=== PATIENT | female | born 1955 | race Caucasian/White ===

== ENCOUNTER 2017-11-05 21:05 | Inpatient (IN) ==
--- NOTE | 2017-11-05 21:43 | Emergency Department Report ---
Head Injury HPI - General Chief complaint: Fall Stated complaint: Fell yesterday, unable to form sentences Time Seen by Provider: 11/05/17 21:28 Source: patient, other (friends) Mode of arrival: ambulatory Limitations: no limitations - History of Present Illness HPI Narrative: Yesterday the patient fell, apparently standing on a flat cement pad, but she may have been standing on one or 2 steps. Unwitnessed fall, and patient has no memory of the fall, all she can state was that she was outside and she fell. Since that time the patient apparently has had a fairly profound cognitive deficit, is unable to speak clearly, she seems to have some type of expressive aphasia, as well as severe confusion.'s a baseline cognitive deficit/MR, but is independently functioning, and lives by herself. Patient has friends that take her to faith every Friday, and they state that on Friday she was her normal self. She also has a brother and some of the relative to live in an adjacent house behind her ears, but she is essentially living on her own and independent functioning. Currently patient has no complaints. In review of the patient's previous visits, and it appears that in 2014 the patient had at least 2 similar episodes of encephalopathy associated with hypertension. Patient was admitted for the first, and treated symptomatically and dismissed for the second. No signs of significant stroke or pathology of the brain were found on the initial visit, and after the patient's blood pressure normalized, her encephalopathic symptoms seemed to improve. After a brief phone call with the patient's daughter who is some type of nurse in [place], fairly the patient has had similar encephalopathic changes with anemia. - Related Data Home Medications Medication Instructions Recorded Confirmed Atorvastatin Calcium 20 mg PO HS #30 10/18/13 11/05/17 Cholecalciferol (Vitamin D3) 400 unit PO DAILY #0 tab 10/18/13 11/05/17 [Vitamin D-400] Omeprazole 20 mg PO ACB #0 tab 11/08/14 11/05/17 Aspirin [Aspirin EC] 81 mg PO DAILY 02/19/17 11/05/17 Atenolol [Tenormin] 50 mg PO DAILY 10/08/17 11/05/17 Calcium Carbonate 600 mg PO DAILY 10/08/17 11/05/17 Flecainide [Tambocor] 100 mg PO BID 10/08/17 11/05/17 Levothyroxine Tab [Synthroid] 25 mcg PO ACB 10/08/17 11/05/17 Lisinopril [Zestril] 10 mg PO DAILY 10/08/17 11/05/17 Multivitamin [One Daily] 1 each PO DAILY 10/08/17 11/05/17 Previous Rx's Medication Instructions Recorded Hydrocodone/APAP 5/325 [[place] 1 tab PO Q6H PRN #12 tab 10/08/17 5/325] Allergies/Adverse reactions: Allergies Allergy/AdvReac Type Severity Reaction Status Date / Time No Known Drug Allergies Allergy Unknown Verified 10/08/17 20:17 Review of Systems All systems: reviewed and negative except as stated PFSH Patient Stated Medical History Cardiac Arrhythmia Yes: afib Hypertension Yes Gastroesophageal Reflux Yes Disease Hypertension associated with encephalopathy - Social History Smoking status: Never smoker Substance use type: does not use Alcohol intake frequency: does not drink Physical Exam - Limitations Limitations: no limitations - General General appearance: alert, other (patient is alert, however confused, and has significant difficulty following commands patient is a very poor historian) - Normal Exams: Head:: Normocephalic without trauma Eyes:: Pupils are PERRLA w/ EOMI, No scleral icterus, irritation, or foreign bodies noted ENMT:: No facial trauma, nasal exudates, pharyngeal erythema, or exudates are noted Neck:: Full range of motion, without adenopathy, JVD, bruits or thyromegaly Chest/Respirations:: Clear all butcher, with good airflow, and symmetry bilaterally Cardiovascular:: Regular rate and rhythm, without murmur or gallop, Pulses 2+ all extremities, capillary refill, <2 seconds all extremities Abdomen:: Bowel sounds positive, soft, non-tender, non-distended, no hepatosplenomegaly, masses or bruits noted Lymphatic:: No lymphadenopathy, or lymphedema noted Musculoskeletal:: No tenderness, or deformity noted, good range of motion, all extremities Integumentary:: No rashes, hives, or bruising noted, hair and nails, without abnormality Psychiatric:: Patient exhibits, appropriate attention, emotion and affect - Neurological Exam Neurological exam: Present: alert, oriented X3, CN II-XII intact, normal gait, reflexes normal, other (patient has significant difficulty following commands, complex commands completely befuddled the patient. She is alert and oriented to person place and situation as well as time, but has significant memory loss and memory deficit. Short-term memory is very poor. Patient has difficulty remembering names, and seems to have a mild expressive aphasia. No focal neurologic findings are found, patient appears to have significant general neurologic deficit/encephalopathy.). Absent: motor sensory deficit Course Vital Signs Pulse Rate 88 11/05/17 21:20 Respiratory Rate 20 11/05/17 21:20 Blood Pressure 201/87 H 11/05/17 21:20 Pulse Oximetry 93 11/05/17 21:20 Pulse Rate 88 11/05/17 21:20 Respiratory Rate 20 11/05/17 21:20 Blood Pressure 201/87 H 11/05/17 21:20 Pulse Oximetry 93 11/05/17 21:20 Head Injury - [facility] Narrative Medical decision making narrative: After initial evaluation, patient developed significant cough that she states is been on and off for a number of weeks. On reexamination patient had mild wheezes, so said with a cough. She is given dexamethasone 8 mg IV, and albuterol metered-dose inhaler with spacer and instruction 8 puffs - patient unable to cooperate with MDI instructions. Given albuterol neb 1 - to relief of all coughing CT head - mild white matter atrophy only EKG - normal sinus rhythm without ischemic, ectopy, or infarction. Patient does have significant artifact however. CBC - normal UA - normal CMP - normal Troponin - normal Mag - normal Patient has had no improvement after ER observation. Patient is discussed with Dr. Hurst, we will admit to CCU, inpatient for acute encephalopathy. - Lab Data Result diagrams: 11/05/17 22:08 11/05/17 22:08 Disposition Clinical Impression: Acute encephalopathy Disposition: 01 Discharged Home, Self-Care Condition: Stable Prescriptions: No Action Cholecalciferol (Vitamin D3) [Vitamin D-400] 400 unit PO DAILY #0 tab Aspirin [Aspirin EC] 81 mg PO DAILY Multivitamin [One Daily] 1 each PO DAILY Lisinopril [Zestril] 10 mg PO DAILY Levothyroxine Tab [Synthroid] 25 mcg PO ACB Calcium Carbonate 600 mg PO DAILY Atenolol [Tenormin] 50 mg PO DAILY Hydrocodone/APAP 5/325 [[place] 5/325] 1 tab PO Q6H PRN #12 tab PRN Reason: Pain Atorvastatin Calcium 20 mg PO HS #30 Omeprazole 20 mg PO ACB #0 tab Flecainide [Tambocor] 100 mg PO BID Referrals: Tori Ricci MD [Primary Care Provider] - - Seen By: physician
[2017-11-05] MEDS: METOPROLOL 5mg/5ml INJECTION IVP SCH ×2 (22:12→23:05)
[2017-11-05] MEDS: SALINE FLUSH 10ml SYRINGE IVF PRN ×2 (22:14→23:07)
[2017-11-05] MEDS ORDERED: DEXAMETHASONE 4 MG/ML INJECTION IVP ONE (22:18)
[2017-11-05] MEDS ORDERED: INHALER ASSIST DEVICE (Optichamber) MC ONE (22:19)
[2017-11-05] MEDS ORDERED: ALBUTEROL 2.5mg/3ml (0.083%) NEB AEROSOL ONE (22:37)
[2017-11-06] MEDS ORDERED: LABETALOL 20mg/4ml INJECTION IVP PRN (01:08)
[2017-11-06] MEDS ORDERED: ACETAMINOPHEN 325 MG TABLET PO PRN (01:08)
[2017-11-06] MEDS: CLOPIDOGREL 75 MG TABLET PO SCH ×2 (01:23→11:30)
--- NOTE | 2017-11-06 01:25 | History & Physical Report ---
History of Present Illness Date: 11/06/17 Chief complaint: difficulty speaking HPI: This is a 62 y/o female who lives in an independent setting. She has a baseline cognitive deficit but is highly functioning. The patient was found by family member yesterday. Apparently fell for unknown reason, The patient was having problems with expressing herself and it would seem to have worsened since yesterday. Further the family would report that the patient's short term memory is poor. Again all of this is different for the patient. In the ED a CT head demonstrates old findings. No acute process. Labs are reassuring The patient has no focal motor deficits. Clearly has expressive aphasia. The patient will be admitted for further evaluation. This is very similar to an event in 2015 where she was thought to have had a TIA. Note that she is currently on a statin and aspirin therapy. Note further that she denies any problem with strength or sensory. Gait is somewhat a problem but there is chronicity to that. She is further describing a chronic cough. Review of Systems Review of systems: Somewhat limited due to patients cognitive deficit and difficultly in expressing herself. She reports no headache or vision changes, no neck pain no chest pain cough chronic and non productive, no fever, chills or sweats. no abdomen pain, no nausea/vomiting 12 point ROS is limited otherwise and no obvious other conerns other than stated above. Past Medical History Medical History Updates: mild cognitive deficits, TIA, possible atrial fibrillation Surgical History: PPM, c section, left ORIF ankle, right eye cataracts Family History: cardiac disease on fathers side Family History: As Above - Social History Smoking status: Never smoker Substance use type: does not use Alcohol intake frequency: does not drink Housing: assisted living facility Household members: none Current occupational status: retired Current residence: Assisted Living Medications Home Medications Medication Instructions Recorded Confirmed Type Atorvastatin Calcium 20 mg PO HS #30 10/18/13 11/05/17 History Cholecalciferol (Vitamin D3) 400 unit PO DAILY #0 tab 10/18/13 11/05/17 History [Vitamin D-400] Omeprazole 20 mg PO ACB #0 tab 11/08/14 11/05/17 History Aspirin [Aspirin EC] 81 mg PO DAILY 02/19/17 11/05/17 History Atenolol [Tenormin] 50 mg PO DAILY 10/08/17 11/05/17 History Calcium Carbonate 600 mg PO DAILY 10/08/17 11/05/17 History Flecainide [Tambocor] 100 mg PO BID 10/08/17 11/05/17 History Hydrocodone/APAP 5/325 [[place] 1 tab PO Q6H PRN #12 tab 10/08/17 11/05/17 Rx 5/325] Levothyroxine Tab [Synthroid] 25 mcg PO ACB 10/08/17 11/05/17 History Lisinopril [Zestril] 10 mg PO DAILY 10/08/17 11/05/17 History Multivitamin [One Daily] 1 each PO DAILY 10/08/17 11/05/17 History Allergies Allergy/AdvReac Type Severity Reaction Status Date / Time No Known Drug Allergies Allergy Unknown Verified 10/08/17 20:17 Exam Vital Signs: Pulse Rate 90 11/05/17 23:10 Respiratory Rate 24 11/05/17 23:10 Blood Pressure 190/99 H 11/05/17 23:10 Pulse Oximetry 91 11/05/17 23:10 Telemetry Rhythm: Sinus Rhythm - Constitutional Present: mild distress, well nourished, well developed, average body habitus, cooperative - Routine HEENT Exam Head: Present: normocephalic, atraumatic Eye: Present: EOMI, PERRL, conjunctivae pink. Absent: nystagmus ENT: Present: mucous membranes moist - Routine Neck Exam Present: supple, full ROM - Routine Respiratory Exam Present: CTA bilaterally - Routine Cardiovascular Exam Present: RRR, no murmur - Routine Abdominal Exam Present: soft, normoactive bowel sounds, non distended, non tender - Routine Extremities Exam Present: no edema, non tender, full ROM - Routine Back/Spine/Pelvis Exam Back/Spine: Present: full ROM - Routine Skin Exam Present: intact - Routine Neurological Exam Present: alert, oriented X3, CN II-XII intact, moving all extremities, normal tone, vision grossly intact, hearing grossly intact. Absent: sensory deficit, motor deficit, normal speech patient has clear evidence of expressive aphasia. - Routine Psychiatric Exam Present: normal affect, normal thought process Results - Labs CBC & Chem 7: 11/05/17 22:08 11/05/17 22:08 Labs: reviewed and essentially unremarkable CT head with chronic changes EKG sinus Assessment and Plan (1) Acute encephalopathy Current visit: Yes Status: Acute (2) Expressive aphasia Current visit: Yes Status: Acute (3) HTN (hypertension) Current visit: Yes Status: Acute (4) Cough Current visit: Yes Status: Acute (5) Arrhythmia Current visit: Yes Status: Acute Assessment and Plan: 1. expressive aphasia acute POA: clearly evident on my exam tonight. must be concerned regarding CVA. Will admit with this as the primary concern. CCU admit with routine neuro orders. MR of brain in the am. Echo and carotid Doppler in the am. Interrogate pacemaker in am. continue aspirin, statin, add plavix, polina not load. neurology consult placed. Seems similar to what occurred in 2015. 2. metabolic encephalopathy acute POA: mostly related to cognitive deficit chronic and underlying. expressive aphasia. metabolic workup neg. TSH pending. Neurology cx placed 3. HtN chronic POA. need permissive tonight. has a cough. hold CK inhibitor. 4. chronic cough POA: consider CK mediated., hold 5. arrhythmia chronic POA: sinus currently, on flecainide. monitor on tele. interrogate pacemaker. if atrial fib? would need to strongly consider anticoagulation. CHADS VASC score of 2 at least female, HTN 6. DVT ppx; SCD, lovenox 7. gastric ppx PPI DVT Prophylaxis: SCD's, Lovenox GI Prophylaxis: Protonix Resuscitation Status: Full Code - Time spent with patient Time with patient PN: 50 minutes - Physician Narrative Physician: Kelle Bond MD Narrative: Date: 11/06/17 Time: 0122 Hospital Course Summary Disclaimer: The visit summary below is not to be considered part of the above Progress Note.
[2017-11-06 01:33] VITALS: BMI 29.3
[2017-11-06] MEDS ORDERED: HYDROCODONE/APAP 5mg/325mg TABLET PO PRN (01:39)
[2017-11-06] MEDS ORDERED: ALBUTEROL 2.5mg/3ml (0.083%) NEB AEROSOL PRN (01:39)
[2017-11-06] MEDS ORDERED: FALL RISK - PHARMACY CONSULT MC ONE (01:48)
[2017-11-06] MEDS: MAGNESIUM SULFATE 1gm PREMIX 1 GM/100 ML BAG IV SCH ×4 (04:18→14:23)
[2017-11-06] MEDS ORDERED: AMIODARONE 150 MG in NS 100 ML IV ONE (04:51)
[2017-11-06] MEDS ORDERED: AMIODARONE 450 MG in NS 250ml 250 ML IV SCH (05:30)
[2017-11-06] MEDS: LEVOTHYROXINE 25 MCG TABLET PO SCH (06:06)
[2017-11-06] MEDS ORDERED: SALINE FLUSH 10ml SYRINGE ONE ×2 (06:47→14:48)
--- NOTE | 2017-11-06 07:33 | CT Scan Report ---
Indication: fall with head injury, now poor communication PROCEDURE: CT head/brain wo con: Encounter: Initial Comparison: December 04, 2014 Technique: Axial CT images through the head were performed without contrast. Iterative Reconstruction dose reducing technique was utilized. FINDINGS: The ventricles are dilated, but unchanged. There is no evidence of acute intracranial hemorrhage, midline displacement, or mass effect. There are numerous areas of low attenuation in the white matter which most likely represent changes of chronic microvascular ischemia. The CT attenuation of the brain parenchyma is otherwise normal within the cerebellum, brain stem, and cerebral hemispheres. The tympanic cavities and mastoid air cells are free of appreciable disease. There are no definite fractures of the skull base, calvarium, or visualized portion of the midface. IMPRESSION: No CT evidence of acute traumatic intracranial injury. Stable head CT. There is a preliminary report by [facility]. .
[2017-11-06] MEDS ORDERED: FLECAINIDE 100 MG TABLET PO SCH (09:00)
[2017-11-06] MEDS ORDERED: ENOXAPARIN 40 MG/0.4 ML INJECTION SQ SCH (09:00)
[2017-11-06] MEDS ORDERED: LISINOPRIL 10 MG TABLET PO SCH (09:00)
[2017-11-06] MEDS ORDERED: MORPHINE SULFATE 4mg INJECTION IVP PRN (09:07)
--- NOTE | 2017-11-06 09:09 | Ultrasound Report ---
Indication: expressive aphasia PROCEDURE: US carotid doppler BI: TECHNIQUE: Grayscale, color and duplex Doppler imaging was performed of the carotid systems bilaterally. Velocities in cm/sec - validated velocity measurements with angiographic measurements, velocity criteria are extrapolated from diameter data as defined by the Society of Radiologists in Ultrasound Consensus Conference Radiology 2003; 229;340-346. RIGHT: PSV ICA 73 EDV ICA 14 PSV CCA 97.5 EDV CCA 19 SVR 0.7 PSV ECA 84 ICA Diameter reduction <20% (0.8-1.0)% LEFT: PSV ICA 65 EDV ICA 19 PSV CCA 63 EDV CCA 13 SVR 1.0 PSV ECA 106 ICA Diameter reduction <20% (0.8-1.0)% The right vertebral artery is patent with cephalic flow. The left vertebral artery is patent with cephalic flow. No significant atherosclerotic plaque. IMPRESSION: No hemodynamically significant carotid stenosis. .
[2017-11-06] MEDS: PANTOPRAZOLE 40 MG INJECTION IVP SCH (10:05)
--- NOTE | 2017-11-06 10:49 | Cardiology Consult Note ---
<Dee Valladares - Last Filed: 11/07/17 15:06> History of Present Illness Consult date: 11/06/17 Requesting physician: Kelle Bond Chief complaint: aphasia History of present illness: Kisha is a 62 year old female who is known to Dr. Rowe's practice with a history of PAF, [employer] PPM, HTN, HLD, who had an unwitnessed fall, and patient has no memory of the fall, all she can state was that she was outside and she fell. Since that time the patient apparently has had a fairly profound cognitive deficit, is unable to speak clearly, she seems to have some type of expressive aphasia, as well as severe confusion. She lives in an independent setting. She has a baseline cognitive deficit but is highly functioning. Her family report that the patient's short term memory is poor. In the ED a CT head demonstrates old findings. No acute process. Mag was quite low (1.0), The patient has no focal motor deficits. Clearly has expressive aphasia. She was admitted for further evaluation. She is currently on a statin and aspirin therapy. Early this morning she had some ventricular arrhythmia, with a torsades appearance and Dr. Rowe is consulted and we appreciate the consult. Review of Systems ROS unobtainable: due to mental status (expressive aphasia) - Constitutional Constitutional: Present: headache(s) - Cardiovascular Cardiovascular: Absent: chest pain - Respiratory Respiratory: Absent: dyspnea - Gastrointestinal Gastrointestinal: Present: nausea, vomiting PFSH Patient Stated Medical History Cardiac Arrhythmia Yes: afib Hypertension Yes Hyperlipidemia Yes Gastroesophageal Reflux Yes Disease Arthritis Yes Medical History Updates: mild cognitive deficits, TIA, possible atrial fibrillation Surgical History: [employer] PPM, c section, left ORIF ankle, right eye cataracts Family History: Family history is positive for grandparents having coronary artery disease and the patient's daughter has pernicious anemia. - Social History Smoking status: Never smoker Substance use type: does not use Alcohol intake frequency: does not drink Housing: apartment Household members: none Current occupational status: retired Current residence: Assisted Living Medications Home Medications Medication Instructions Recorded Confirmed Type Atorvastatin Calcium 20 mg PO HS #30 10/18/13 11/05/17 History Cholecalciferol (Vitamin D3) 400 unit PO DAILY #0 tab 10/18/13 11/05/17 History [Vitamin D-400] Omeprazole 20 mg PO ACB #0 tab 11/08/14 11/05/17 History Calcium Carbonate 600 mg PO DAILY 10/08/17 11/05/17 History Hydrocodone/APAP 5/325 [[place] 1 tab PO Q6H PRN #12 tab 10/08/17 11/05/17 Rx 5/325] Levothyroxine Tab [Synthroid] 25 mcg PO ACB 10/08/17 11/05/17 History Multivitamin [One Daily] 1 each PO DAILY 10/08/17 11/05/17 History Apixaban [Eliquis] 5 mg PO BID #60 tab 11/12/17 Rx Aspirin [Adult Aspirin] 81 mg PO DAILY #30 tablet. 11/12/17 Rx Furosemide [Lasix 40 mg Tab] 40 mg PO DAILY #30 tab 11/12/17 Rx Magnesium Oxide [Magox] 800 mg PO BID #120 tab 11/12/17 Rx Metoprolol Succinate (XL) [Toprol 75 mg PO DAILY #45 tab 11/12/17 Rx Xl] Nitroglycerin [Nitrostat] 0.4 mg SL Q5M PRN #25 tab 11/12/17 Rx Potassium Chloride [K-DUR 10 mEq 10 meq PO WB #30 tab 11/12/17 Rx Tablet] Allergies Allergy/AdvReac Type Severity Reaction Status Date / Time No Known Drug Allergies Allergy Unknown Verified 10/08/17 20:17 Exam Vital signs: Temperature 97.9 F 11/06/17 01:16 Pulse Rate 108 H 11/06/17 06:00 Respiratory Rate 37 H 11/06/17 06:00 Blood Pressure 145/109 H 11/06/17 06:00 Pulse Oximetry 95 11/06/17 06:00 - Constitutional no acute distress, well nourished, cooperative - Routine HEENT Exam Head: Present: normocephalic ENT: Present: mucous membranes dry - Routine Neck Exam Absent: JVD, carotid bruit - Routine Chest/Breast/Axilla Exam Chest wall: Absent: tenderness - Routine Respiratory Exam Present: CTA bilaterally. Absent: dyspnea, diminished air movement (bases) - Routine Cardiovascular Exam Present: no murmur, irregularly irregular - Routine Abdominal Exam Present: soft, non tender - Routine Extremities Exam Present: no edema, pulses intact - Routine Skin Exam Present: intact, dry, warm - Routine Neurological Exam Present: alert - Routine Psychiatric Exam Present: cooperative Results 11/07/17 04:50 11/07/17 04:50 Cardiac Enzymes 11/06/17 Range/Units 04:43 Troponin I 0.028 D (0-0.12) ng/ml Intake and Output 11/05/17 11/06/17 11/06/17 22:59 06:59 14:59 Intake Total 327.442 / 327.442 33.3 / 33.3 Output Total 550 / 550 100 / 100 Balance -222.558 / -222.558 -66.7 / -66.7 Intake: IV 327.442 / 327.442 33.3 / 33.3 Amiodarone 150 mg In Ns 100 ml 103 / 103 @ 618 mls/hr IV O ONE Rx#: [id number] Amiodarone 450 mg In NS 250ml 24.442 / 24.442 33.3 / 33.3 250 ml @ 1 MG/MIN 33.33 mls/hr IV .[id number] [facility] Rx#:[id number] MAGNESIUM SULFATE 1gm PREMIX 1 200 / 200 gm In 100 ml @ 100 mls/hr IV Q1H [facility] Rx#:[id number] Output: Urine 100 / 100 Urine Amount (Catheter) 550 / 550 Other: Urine Appearance Clear Clear Urine Color Pale Yellow Yellow # Voids 1 Weight 135 lb 9.349 oz - Imaging and Cardiology Imaging & Cardiology Narrative: Date of Exam: 11/06/17 Ordering Provider: Rogers Hurst MD Type of Exam(s): US carotid doppler BI Reason for Exam(s): expressive aphasia Indication: expressive aphasia PROCEDURE: US carotid doppler BI: TECHNIQUE: Grayscale, color and duplex Doppler imaging was performed of the carotid systems bilaterally. Velocities in cm/sec - validated velocity measurements with angiographic measurements, velocity criteria are extrapolated from diameter data as defined by the Society of Radiologists in Ultrasound Consensus Conference Radiology 2003; 229;340-346. RIGHT: PSV ICA 73 EDV ICA 14 PSV CCA 97.5 EDV CCA 19 SVR 0.7 PSV ECA 84 ICA Diameter reduction <20% (0.8-1.0)% LEFT: PSV ICA 65 EDV ICA 19 PSV CCA 63 EDV CCA 13 SVR 1.0 PSV ECA 106 ICA Diameter reduction <20% (0.8-1.0)% The right vertebral artery is patent with cephalic flow. The left vertebral artery is patent with cephalic flow. No significant atherosclerotic plaque. IMPRESSION: No hemodynamically significant carotid stenosis. 11/06/17 10:41 Assessment and Plan - Assessment and Plan (1) HTN (hypertension) Status: Chronic Continue Atenolol and Lisinopril (2) Ventricular tachyarrhythmia Status: Acute Mag 1.5, replace with 2gm per IV - Plan LHC tomorrow due to ventricular arrhythmia. - Continue to monitor telemetry (3) Presence of cardiac pacemaker Problem details: Wurl Status: Chronic interrogate please (4) Paroxysmal atrial fibrillation Status: Chronic Previously on Flecainide 100mg BID and Aspirin 325mg daily - Takes Atenolol 25mg daily for rate control. - Amiodarone 200mg daily for AAT (5) Mixed hyperlipidemia Status: Chronic Takes Atorvastatin 20mg daily - Assessment and Plan Ventricular tachyarrhythmia Current visit: Yes Status: Acute - Mag 1.5, replace with 2gm per IV - Plan LHC tomorrow due to ventricular arrhythmia. - NPO except meds after MN - Continue to monitor telemetry Presence of cardiac pacemaker Problem details: [employer] Current visit: Yes Status: Chronic - interrogate please Paroxysmal atrial fibrillation Current visit: Yes Status: Chronic - Previously on Flecainide 100mg BID and Aspirin 325mg daily - Takes Atenolol 25mg daily for rate control. - Amiodarone 200mg daily for AAT Mixed hyperlipidemia Current visit: Yes Status: Chronic - Takes Atorvastatin 20mg daily HTN (hypertension) Current visit: Yes Status: Chronic - Continue Atenolol and Lisinopril Thank you for allowing us to participate in the care of this patient. Hospital Course Summary Disclaimer: The visit summary below is not to be considered part of the above Progress Note. <Andrez Rowe - Last Filed: 11/19/17 12:45> [facility] Patient Stated Medical History Cardiac Arrhythmia Yes: afib Hypertension Yes Gastroesophageal Reflux Yes Disease Exam Vital signs: Temperature 97.5 F 11/12/17 12:25 Pulse Rate 83 11/12/17 12:25 Respiratory Rate 14 11/12/17 12:25 Blood Pressure 102/52 11/12/17 12:25 Pulse Oximetry 98 11/12/17 12:25 Results 11/11/17 05:25 11/12/17 04:28 Assessment and Plan - Attestation Attestation Narrative: 11/19/17 12:45 Recommendation After examining the patient I agree with the above assessment. I am involved in the formulation of the patient's plan of care. - Assessment and Plan (1) HTN (hypertension) Status: Chronic (2) Ventricular tachyarrhythmia Status: Acute (3) Presence of cardiac pacemaker Problem details: Wurl Status: Chronic (4) Paroxysmal atrial fibrillation Status: Chronic (5) Mixed hyperlipidemia Status: Chronic (6) Cardiomyopathy Problem details: Non ischemic Status: Acute Hospital Course Summary Disclaimer: The visit summary below is not to be considered part of the above Progress Note.
[2017-11-06] MEDS ORDERED: METOCLOPRAMIDE 10mg/2ml INJECTION IVP PRN (10:55)
[2017-11-06] MEDS ORDERED: ONDANSETRON 4 MG/2 ML INJECTION IVP ONE (10:57)
[2017-11-06] MEDS ORDERED: HEPARIN - PHARMACY CONSULT MC ONE (11:08)
[2017-11-06] MEDS ORDERED: AMIODARONE 900 MG in NS 500ml 500 ML IV SCH (11:30)
[2017-11-06] MEDS: ATENOLOL 50 MG TABLET PO SCH (11:30)
[2017-11-06] MEDS: ASPIRIN *EC* 81 MG TABLET PO SCH (11:31)
--- NOTE | 2017-11-06 11:44 | Pharmacy Consult ---
Pharmacy Consult-Heparin - Laboratory Information Heparin Plt Count 366 T/MM3 (130-400) 11/05/17 22:08 APTT 29.3 SEC (24-36) 11/05/17 22:08 - Consult Information HEPARIN CONSULT (Initial): Dx: PAF Baseline PTT = 29 Sec. Baseline platelet count = 366 T/mm3. PTT Target Range = 50-75 Enoxaparin 40mg sq given today at 1000. Delay heparin bolus and drip by 3 hours. Will give Heparin Bolus of 3,700units, start Heparin Drip at 720 units/hr (18ml/ hr). Heparin 20,000 units in D5W 500ml. We will continue to monitor and make adjustments accordingly. Thank you.
--- NOTE | 2017-11-06 11:46 | History & Physical Report ---
- History and Physical History and Physical: Dr. Hurst's note reviewed. Mrs. Betancourt interviewed and examined. Patient's daughter provided supplemental history CC: Difficulty speaking HPI: Mrs. Betancourt is 62-year-old female admitted early this morning by Dr. Hurst after family members found her yesterday with difficulty speaking. She apparently had sustained a fall from standing earlier in the day with subsequent development of difficulty with her speech. The fall was unwitnessed and the patient cannot provide any information other than reporting that she fell and developed difficulty speaking after work. Head CT in the emergency room was negative for acute pathology and she was subsequently admitted to the ICU. There is no evidence of motor or sensory deficit on assessment in the emergency room or overnight and expressive aphasia was evident. The patient additionally has known history of paroxysmal atrial fibrillation previously controlled on flecainide. She had initial blood pressure of 201/87 on presentation in the emergency room with heart rate of 88 although heart rate subsequently accelerated with development of atrial fibrillation and wide complex tachycardia with evidence of torsade. Magnesium was low at 1.0. Patient received a supplemental dose of flecainide overnight in addition to labetalol for hypertension. Dr. Rowe service was contacted and it was elected to discontinue flecainide and initiate amiodarone due to persistent tachycardia. Pacemaker interrogation was obtained demonstrating atrial fibrillation with out VT. PH/SH/FH: agree with that recorded above by Dr. Hurst with additions of history of hypertensive emergency with encephalopathy 2014, chronic hypertension, history of CHF, and hyperlipidemia. Patient's primary care physician is Dr. Ricci and her daughter Margie Chairez is her DPOA. Patient is a full code. Family history is positive for grandparents having coronary artery disease and the patient's daughter has pernicious anemia. ROS: 10 point review unobtainable/irregular as per Dr. Hurst. EXAM: General-comfortable appearing female rubbing her head with obvious expressive aphasia-perseverates at times, can answer yes no questions but cannot answer a complex question; appears to follow simple commands without difficulty. HEENT-PERRL, EOMI without nystagmus, conjunctiva clear, sclera anicteric, conjugate gaze, facial structures symmetric, oropharynx clear, neck supple and without adenopathy Lungs-respirations nonlabored, good airflow, faint crackles at the bases Cardiac-irregularly irregular, S1-S2 Abd-soft, nontender, without palpable mass, bowel sounds present Ext-without edema Skin-without evidence of wounds or rashes Neuro-cranial nerves 3-12 intact except very minor decreased motion left nasolabial fold with grimace/smile-no asymmetry at rest; no drift upper extremities, starch crab/biceps symmetric-4+/5, plantar flexion 4/5 bilaterally, raises each leg off the head and hold against gentle resistance symmetrically; sensation intact to light touch and reports my hands are cold. Psych-frustrated but cooperative DATA: CBC unremarkable, chemistries notable for creatinine 0.8, magnesium 1.0, liver enzymes normal, LDL 56.4, f-2.34, troponin TSH < 0.012-0.[address] head reviewed by myself-unremarkable A/P: Expressive aphasia/acute ischemic stroke Paroxysmal atrial fibrillation with RVR Hypomagnesemia Hyperthyroidism Possible ventricular arrhythmias Hypertension Metabolic encephalopathy Hyperlipidemia Patient admitted to ICU with combined acute stroke, arrhythmias, hyperthyroidism , and hypomagnesemia. Will require CT imaging of the head with contrast/CTA when arrhythmias stabilize and permit. Continue aspirin at present. Speech therapy evaluation in conjunction with PT/ OT. Discontinue levofloxacin, may require endocrine evaluation. Will need initiation of beta ritu. Avoid hypotension or excessive lowering of blood pressure due to acute stroke. Echocardiogram pending, carotid Dopplers obtained-negative for occlusive disease. Cardiology consultation for assistance with arrhythmias. Continue magnesium replacement, repeat electrolytes pending at this time of this dictation. Patient is critically ill-time in 1050, Timeout 1146. Discussed with patient's daughter/DPOA. Discussed with nursing, discussed with cardiology.
[2017-11-06] MEDS ORDERED: HEPARIN 1,000unit/ml INJECTION 10ml IV ONE (13:00)
[2017-11-06] MEDS: HEPARIN DRIP 20,000 UNIT/500 ML BAG IV SCH (13:44)
[2017-11-06] MEDS: AMIODARONE 200 MG TABLET PO SCH (14:18)
[2017-11-06] MEDS: CALCIUM CARBONATE 600 MG TABLET PO SCH (14:26)
[2017-11-06] MEDS ORDERED: IOHEXOL 350mg/ml 75ml INJECTION ONE (14:48)
--- NOTE | 2017-11-06 14:54 | Echocardiogram ---
DATE OF PROCEDURE November 06, 2017 REFERRING PHYSICIAN Kelle Bond MD This is a two-dimensional this is a 2-D echo with color flow and Doppler. It was obtained in a patient with aphasia and torsades. Left atrial dimension is normal. Left ventricular end-diastolic dimension is normal. Left ventricular wall thickness is increased. Global hypokinesia is present with ejection fraction of about 30-35%. Right atrium is normal. Right ventricle is normal. Aortic root dimension is normal. Mitral valve is morphologically normal with mild mitral regurgitation. Aortic valve is a trileaflet structure with no stenosis or insufficiency. Tricuspid valve shows mild tricuspid regurgitation with moderate pulmonary hypertension with estimated pulmonary artery systolic pressure of 50. Pulmonary valve shows trace of pulmonary insufficiency. There is no pericardial effusion. Device wires are seen in the right heart. Inferior vena cava appears to be dilated and poorly responsive to respirations. IMPRESSION 1. Global hypokinesia with ejection fraction of about 30-35%. 2. Concentric left ventricular hypertrophy. 3. Device wires are seen in right heart. 4. Dilated inferior vena cava suggestive of elevated central venous pressure. 5. Mild mitral regurgitation. 6. Mild tricuspid regurgitation with moderate pulmonary hypertension with estimated pulmonary artery systolic pressure of 50. 6. Trace of pulmonary insufficiency. MTDD
--- NOTE | 2017-11-06 15:32 | CT Scan Report ---
Indication: expressive aphasia/CVA PROCEDURE: CT angio head: Encounter: Initial Comparison: Carotid Doppler from today and CT head from yesterday Technique: CT Head: Axial images were obtained through the head without and with intravenous contrast. CTA: Angiographic phase axial images were acquired through the entire head following intravenous contrast administration. Multiplanar 2-D reconstructions and maximum intensity projection images were produced for additional assessment. 3-D volume rendered images of the [place] were also produced by the technologist. Automated Exposure Control and Iterative Reconstruction dose reducing techniques were utilized. Contrast: Omnipaque 350 74mL Findings: CT head without and with contrast: The ventricles are dilated, but unchanged. Extensive periventricular low-attenuation white matter changes consistent with chronic microvascular ischemia. No hemorrhage, mass effect, mass lesions, or edema is evident. No areas of abnormal enhancement are seen. The visualized portions of the skull base, sinuses, and calvarium demonstrate no abnormality. CTA head with intravenous contrast: The distal cervical, petrous, cavernous, and supraclinoid segments of the internal carotid arteries are widely patent without significant stenosis or other vascular abnormalities. The anterior, middle, and posterior cerebral arteries are also widely patent without significant stenosis or occlusion. No aneurysms, vascular malformations, flow-limiting stenoses, or other arterial abnormality are evident. The visualized portion of the dural sinuses and cortical veins are also well seen and show no definite stenosis or occlusion. Impression: 1. CT head: No acute intracranial abnormality or hemorrhage. 2. CTA head: No aneurysms, vascular malformations, or flow limiting stenoses. .
--- NOTE | 2017-11-06 17:01 | XRay Report ---
Indication: PPM PROCEDURE: XR chest 1V: Encounter: Initial Comparison: February 19, 2017 Findings: Right dual-lead cardiac pacemaker noted with right atrial and right ventricular leads. No visible pneumothorax. Lungs are stable in appearance without focal consolidation. Heart size and mediastinal contours are stable. Impression: No pneumothorax. .
[2017-11-06] MEDS: ATORVASTATIN 20 MG TABLET PO SCH (20:02)
[2017-11-07] MEDS: PANTOPRAZOLE 40 MG INJECTION IVP SCH (08:28)
[2017-11-07] MEDS: SALINE FLUSH 10ml SYRINGE IVF PRN ×2 (08:28→16:33)
[2017-11-07] MEDS: CALCIUM CARBONATE 600 MG TABLET PO SCH (08:28)
[2017-11-07] MEDS: AMIODARONE 200 MG TABLET PO SCH (08:28)
[2017-11-07] MEDS: ASPIRIN *EC* 81 MG TABLET PO SCH (08:29)
[2017-11-07] MEDS: LEVOTHYROXINE 25 MCG TABLET PO SCH (08:29)
[2017-11-07] MEDS: ATENOLOL 50 MG TABLET PO SCH (08:29)
[2017-11-07] MEDS: CLOPIDOGREL 75 MG TABLET PO SCH (08:29)
[2017-11-07] MEDS: LIDOCAINE 1% 2ml INJ 10 MG, POTASSIUM CHLORIDE INJ 10 MEQ in NS 100 ML IV SCH ×4 (10:10→15:41)
--- NOTE | 2017-11-07 10:17 | Pharmacy Consult ---
Pharmacy Consult-Heparin - Laboratory Information Heparin Plt Count 361 T/MM3 (130-400) 11/07/17 04:50 APTT 54.0 SEC (24-36) H 11/07/17 08:44 - Consult Information PTT in target range. Will continue heparin drip at 18 mls/hr (720 units/hr) Thank you.
[2017-11-07] MEDS ORDERED: Verapamil 5 MG/2 ML VIAL ONE (14:04)
[2017-11-07] MEDS ORDERED: MIDAZOLAM 2mg/2ml INJECTION ONE (14:04)
[2017-11-07] MEDS ORDERED: NITROGLYCERIN 50MG INJECTION IV ONE (14:04)
[2017-11-07] MEDS ORDERED: FentaNYL 100 MCG/2 ML INJECTION ONE (14:04)
[2017-11-07] MEDS ORDERED: HEPARIN 1,000 UNITS/500 ML PREMIX (*CVL ONLY*) IV ONE (14:05)
[2017-11-07] MEDS ORDERED: HEPARIN 1,000unit/ml INJECTION 10ml ONE (14:05)
[2017-11-07] MEDS ORDERED: IOHEXOL 350mg/ml 200ml BOTTLE ONE (14:29)
--- NOTE | 2017-11-07 15:08 | Cardiology Progress Note ---
<Dee Valladares M - Last Filed: 11/10/17 15:00> Subjective Principal diagnosis: VTACH Interval history: Kisha is seen in follow up for NSVT. She is undergoing LHC with possible PCI. She denies chest pain. Exam Vital signs: Temperature 98.3 F 11/06/17 19:00 Pulse Rate 63 11/07/17 11:54 Respiratory Rate 60 H 11/07/17 11:00 Blood Pressure 154/76 H 11/07/17 11:00 Pulse Oximetry 96 11/07/17 11:00 Inpatient Medications: Generic Name Dose Route Start Last Admin Trade Name Freq PRN Reason Stop Dose Admin Acetaminophen 650 mg 11/06/17 01:08 11/06/17 01:23 Tylenol PO 650 mg Q6H PRN Administration Fever Hydrocodone Bitart/Acetaminophen 1 tab 11/06/17 01:39 11/06/17 03:27 [place] 5/325 PO 1 tab Q4H PRN Administration Pain Albuterol Sulfate 2.5 mg 11/06/17 01:39 Proventil Neb (0.083%) AEROSOL RTQID PRN Amiodarone HCl 200 mg 11/06/17 13:00 11/07/17 08:28 Pacerone PO 200 mg DAILY HERMELINDO Administration Aspirin 81 mg 11/06/17 09:00 11/07/17 08:29 Ecotrin PO 81 mg DAILY HERMELINDO Administration Atenolol 50 mg 11/06/17 09:00 11/07/17 08:29 Tenormin PO 50 mg DAILY HERMELINDO Administration Atorvastatin Calcium 20 mg 11/06/17 21:00 11/06/17 20:02 Lipitor PO 20 mg HS HERMELINDO Administration Calcium Carbonate 600 mg 11/06/17 09:00 11/07/17 08:28 Caltrate PO 600 mg DAILY HERMELINDO Administration Clopidogrel Bisulfate 75 mg 11/06/17 01:30 11/07/17 08:29 Plavix PO 75 mg DAILY HERMELINDO Administration Heparin Sodium (Porcine) 20,000 unit in 500 mls @ 18 mls/hr 11/06/17 13:00 05:00 Heparin Drip IV 18 mls/hr .Q24H HERMELINOD 18 mls/hr Protocol Titration Labetalol HCl 20 mg 11/06/17 01:08 11/06/17 04:18 Trandate IVP 20 mg Q10M PRN Administration Hypertension Metoclopramide HCl 5 mg 11/06/17 10:55 Reglan IVP Q6H PRN Morphine Sulfate 2 - 4 mg 11/06/17 09:07 11/06/17 13:19 Morphine Sulfate Inj IVP 2 mg Q1H PRN Administration Pain Pantoprazole Sodium 40 mg 11/06/17 09:00 11/07/17 08:28 Protonix Iv IVP 40 mg DAILY HERMELINDO Administration Sodium Chloride 10 - 80 ml 11/05/17 21:39 11/07/17 08:28 Iv Flush IVF 20 ml PRN PRN Administration Flushing Discontinued Medications Generic Name Dose Route Start Last Admin Trade Name Freq PRN Reason Stop Dose Admin Albuterol Sulfate 8 puff 11/05/17 22:18 11/05/17 22:22 Ventolin Hfa ORAL INH 11/05/17 22:19 2 puff O ONE Administration Albuterol Sulfate 2.5 mg 11/05/17 22:37 11/05/17 22:40 Proventil Neb (0.083%) AEROSOL 11/05/17 22:38 2.5 mg O ONE Administration Device 1 each 11/05/17 22:19 11/05/17 22:22 Optichamber 11/05/17 22:20 1 each O ONE Administration Dexamethasone 8 mg 11/05/17 22:18 11/05/17 22:25 Decadron IVP 11/05/17 22:19 8 mg O ONE Administration Enoxaparin Sodium 40 mg 11/06/17 09:00 11/06/17 10:05 Lovenox SQ 40 mg DAILY HERMELINDO Administration Flecainide Acetate 100 mg 11/06/17 09:00 11/06/17 03:37 Tambocor PO 100 mg BID HERMELINDO Administration Heparin Sodium (Beef Lung) 3,700 unit 11/06/17 13:00 11/06/17 13:26 Heparin Bolus 60 unit/kg (3700 unit) 11/06/17 13:01 3,700 unit IV Administration O ONE Heparin Sodium (Porcine) 1 each 11/06/17 11:08 Pharmacy Consult - Heparin 11/06/17 11:09 ONE TIME ONE Magnesium Sulfate/Dextrose 1 gm in 100 mls @ 100 mls/hr 11/06/17 04:00 07/05/ 18 06:22 Mag Sulf 1gm Premix IV 11/06/17 05:59 Infused Q1H HERMELINDO Infusion Amiodarone HCl 450 mg/ Sodium 250 mls @ 33.33 mls/hr 11/06/17 05:30 11/06/17 13:00 Chloride IV 11/06/17 11:30 Infused .Q7H31M HERMELINDO Infusion 1 MG/MIN Amiodarone HCl 150 mg/ Sodium 103 mls @ 618 mls/hr 11/06/17 04:51 11/06/17 05 :16 Chloride IV 11/06/17 05:00 Infused O ONE Infusion Amiodarone HCl 900 mg/ Sodium 500 mls @ 16.66 mls/hr 11/06/17 11:30 11/06/17 14:22 Chloride IV Infused .Q24H HERMELINDO Infusion 0.5 MG/MIN Magnesium Sulfate/Dextrose 1 gm in 100 mls @ 100 mls/hr 11/06/17 11:00 14:23 Mag Sulf 1gm Premix IV 11/06/17 12:59 100 mls/hr Q1H HERMELINDO Administration Lidocaine HCl 10 mg/ Potassium 100 mls @ 100 mls/hr 11/07/17 09:15 11/07/17 13:18 Chloride 10 meq/ Sodium IV 11/07/17 13:28 100 mls/hr Chloride .Q1H HERMELINDO Administration Levothyroxine Sodium 25 mcg 11/06/17 06:30 11/07/17 08:29 Synthroid PO 25 mcg ACB HERMELINDO Administration Lisinopril 10 mg 11/06/17 09:00 Prinivil PO DAILY HERMELINDO Metoprolol Tartrate 5 mg 11/05/17 22:00 11/05/17 23:05 Lopressor IVP 5 mg Q2MIN HERMELINDO Administration Ondansetron HCl 4 mg 11/06/17 10:57 11/06/17 11:38 Zofran IVP 11/06/17 10:58 4 mg O ONE Administration Pharmacy Consult 1 each 11/06/17 01:48 Pharmacy Consult - Fall Risk 11/06/17 01:49 ONE TIME ONE - Constitutional no acute distress, well nourished, cooperative - Routine HEENT Exam Head: Present: normocephalic ENT: Present: mucous membranes dry - Routine Chest/Breast/Axilla Exam Chest wall: Absent: tenderness - Routine Respiratory Exam Present: CTA bilaterally. Absent: dyspnea, rales, wheezes - Routine Cardiovascular Exam Present: no murmur, irregularly irregular - Routine Abdominal Exam Present: soft, non tender - Routine Extremities Exam Present: no edema - Routine Skin Exam Present: intact, dry, warm - Routine Neurological Exam Present: alert, oriented X3 - Routine Psychiatric Exam Present: normal affect Results 11/09/17 04:28 11/10/17 11:12 Cardiac Enzymes 11/06/17 Range/Units 17:08 Troponin I 0.025 (0-0.12) ng/ml Coagulation 11/06/17 11/07/17 Range/Units 21:42 08:44 APTT 67.0 H 54.0 H (24-36) SEC CBC 11/07/17 Range/Units 04:50 WBC 8.2 (4.5-11.0) T/MM3 RBC 4.04 (4.00-5.20) M/MM3 Hgb 12.1 (12-16) GM/DL Hct 37.0 (36-46) % Plt Count 361 (130-400) T/MM3 Neut # (Auto) 5.4 (1.8-7.7) T/MM3 Lymph # (Auto) 1.8 (1-4.8) T/MM3 [place] # (Auto) 0.9 H (0-0.8) T/MM3 Eos # (Auto) 0.0 (0-0.5) T/MM3 Baso # (Auto) 0.0 (0-0.2) T/MM3 Comprehensive Metabolic Panel 11/07/17 Range/Units 04:50 Sodium 143 (136-146) MEQ/L Potassium 3.3 L (3.6-5) MEQ/L Chloride 109 H (98-107) MEQ/L Carbon Dioxide 27 (22-30) MEQ/L BUN 12.0 (7-17) MG/DL Creatinine 0.8 D (0.7-1.2) mg/dL Glucose 99 (65-110) MG/DL Calcium 8.8 (8.4-10.2) MG/DL Intake and Output 11/07/17 11/07/17 11/07/17 06:59 14:59 22:59 Intake Total 126 / 126 200 / 200 Output Total 50 / 50 Balance 76 / 76 200 / 200 Intake: IV 126 / 126 200 / 200 Heparin Drip 20,000 unit In 500 126 / 126 ml @ 18 mls/hr IV .Q24H [facility] Rx #:[id number] LIDOCAINE 1% 2ml INJ 10 mg 200 / 200 Potassium Chloride Inj 10 meq In Ns 100 ml @ 100 mls/hr IV . Q1H HERMELINDO Rx#:[id number] Output: Urine 50 / 50 Other: Urine Appearance Clear Clear Urine Color Yellow Yellow Stool Color Brown Stool Consistency Dry and Hard Formed Size of Bowel Movement Small # Voids 1 1 # Bowel Movements 1 Weight 133 lb 13.129 oz Patient Weight 11/08/17 06:59 Weight 133 lb 13.129 oz - Imaging and Cardiology Imaging & Cardiology Narrative: Date of Exam: 11/06/17 Type of Exam(s): US echo doppler complete DATE OF PROCEDURE November 06, 2017 REFERRING PHYSICIAN Kelle Bond MD This is a two-dimensional this is a 2-D echo with color flow and Doppler. It was obtained in a patient with aphasia and torsades. Left atrial dimension is normal. Left ventricular end-diastolic dimension is normal. Left ventricular wall thickness is increased. Global hypokinesia is present with ejection fraction of about 30-35%. Right atrium is normal. Right ventricle is normal. Aortic root dimension is normal. Mitral valve is morphologically normal with mild mitral regurgitation. Aortic valve is a trileaflet structure with no stenosis or insufficiency. Tricuspid valve shows mild tricuspid regurgitation with moderate pulmonary hypertension with estimated pulmonary artery systolic pressure of 50. Pulmonary valve shows trace of pulmonary insufficiency. There is no pericardial effusion. Device wires are seen in the right heart. Inferior vena cava appears to be dilated and poorly responsive to respirations. IMPRESSION 1. Global hypokinesia with ejection fraction of about 30-35%. 2. Concentric left ventricular hypertrophy. 3. Device wires are seen in right heart. 4. Dilated inferior vena cava suggestive of elevated central venous pressure. 5. Mild mitral regurgitation. 6. Mild tricuspid regurgitation with moderate pulmonary hypertension with estimated pulmonary artery systolic pressure of 50. 6. Trace of pulmonary insufficiency. 11/07/17 15:08 Assessment and Plan - Assessment and Plan (1) HTN (hypertension) Status: Chronic (2) Ventricular tachyarrhythmia Status: Acute (3) Presence of cardiac pacemaker Problem details: iStorez Status: Chronic (4) Paroxysmal atrial fibrillation Status: Chronic (5) Mixed hyperlipidemia Status: Chronic (6) Cardiomyopathy Problem details: Non ischemic Status: Acute Non ischemic , Acute - EF 30-35% - LifeVest - Coreg and Entresto as BP tolerates - Assessment and Plan 11/06/17 Ventricular tachyarrhythmia Current visit: Yes Status: Acute - Mag 1.5, replace with 2gm per IV - Plan C tomorrow due to ventricular arrhythmia. - NPO except meds after MN - Continue to monitor telemetry Presence of cardiac pacemaker Problem details: iStorez Current visit: Yes Status: Chronic - interrogate please Paroxysmal atrial fibrillation Current visit: Yes Status: Chronic - Previously on Flecainide 100mg BID and Aspirin 325mg daily - Takes Atenolol 25mg daily for rate control. - Amiodarone 200mg daily for AAT Mixed hyperlipidemia Current visit: Yes Status: Chronic - Takes Atorvastatin 20mg daily HTN (hypertension) Current visit: Yes Status: Chronic - Continue Atenolol and Lisinopril Thank you for allowing us to participate in the care of this patient. 11/07/17 Non ischemic , Acute - EF 30-35% - LifeVest - Coreg and Entresto as BP tolerates Change Atenolol to Coreg due to reduced EF of 30-35% - DC Lisinopril. Entresto 24/26mg 36 hours after last dose of Lisinopril - Lasix 40mg BID with KCL 20meq BID - Monitor renal and electrolytes Hospital Course Summary Disclaimer: The visit summary below is not to be considered part of the above Progress Note. <Andrez Rowe - Last Filed: 11/19/17 12:52> Exam Vital signs: Temperature 97.5 F 11/12/17 12:25 Pulse Rate 83 11/12/17 12:25 Respiratory Rate 14 11/12/17 12:25 Blood Pressure 102/52 11/12/17 12:25 Pulse Oximetry 98 11/12/17 12:25 Inpatient Medications: Discontinued Medications Generic Name Dose Route Start Last Admin Trade Name Freq PRN Reason Stop Dose Admin Acetaminophen 650 mg 11/06/17 01:08 11/06/17 01:23 Tylenol PO 650 mg Q6H PRN Administration Fever Acetaminophen 325 - 650 mg 11/07/17 15:40 11/12/17 12:48 Tylenol PO 650 mg Q5H PRN Administration Pain Hydrocodone Bitart/Acetaminophen 1 tab 11/06/17 01:39 11/06/17 03:27 [place] 5/325 PO 1 tab Q4H PRN Administration Pain Hydrocodone Bitart/Acetaminophen 1 - 2 tab 11/07/17 15:40 [place] 5/325 PO Q5H PRN Pain Hydrocodone Bitart/Acetaminophen 1 tab 11/07/17 19:35 [place] 5/325 PO Q6H PRN Pain Al Hydroxide/Mg Hydroxide 30 ml 11/07/17 15:40 Maalox Plus PO Q3H PRN Indigestion Albuterol Sulfate 8 puff 11/05/17 22:18 11/05/17 22:22 Ventolin Hfa ORAL INH 11/05/17 22:19 2 puff O ONE Administration Albuterol Sulfate 2.5 mg 11/05/17 22:37 11/05/17 22:40 Proventil Neb (0.083%) AEROSOL 11/05/17 22:38 2.5 mg O ONE Administration Albuterol Sulfate 2.5 mg 11/06/17 01:39 Proventil Neb (0.083%) AEROSOL RTQID PRN Amiodarone HCl 200 mg 11/06/17 13:00 11/10/17 09:51 Pacerone PO 200 mg DAILY HERMELINDO Administration Apixaban 5 mg 11/09/17 09:00 11/12/17 08:39 Eliquis PO 5 mg BID HERMELINDO Administration Aspirin 81 mg 11/06/17 09:00 11/10/17 09:52 Ecotrin PO 81 mg DAILY HERMELINDO Administration Atenolol 50 mg 11/06/17 09:00 11/07/17 08:29 Tenormin PO 50 mg DAILY HERMELINDO Administration Atorvastatin Calcium 20 mg 11/06/17 21:00 11/11/17 20:10 Lipitor PO 20 mg HS HERMELINDO Administration Atropine Sulfate 0.5 mg 11/07/17 15:40 Atropine IVP Q5M PRN Bradycardia Bisacodyl 5 - 10 mg 11/07/17 15:40 Dulcolax PO DAILY PRN Constipation Bisacodyl 10 mg 11/07/17 15:40 Dulcolax RECTALLY DAILY PRN Constipation Calcium Carbonate 600 mg 11/06/17 09:00 11/12/17 08:39 Caltrate PO 600 mg DAILY HERMELINDO Administration Carvedilol 3.125 mg 11/07/17 17:30 11/09/17 09:32 Coreg PO Not Given BIDWM HERMELINDO Clopidogrel Bisulfate 75 mg 11/06/17 01:30 11/08/17 08:52 Plavix PO 75 mg DAILY HERMELINDO Administration Cyclobenzaprine HCl 5 mg 11/09/17 14:37 11/09/17 21:57 Flexeril PO 5 mg TID PRN Administration Muscle spasm Device 1 each 11/05/17 22:19 11/05/17 22:22 Optichamber 11/05/17 22:20 1 each O ONE Administration Dexamethasone 8 mg 11/05/17 22:18 11/05/17 22:25 Decadron IVP 11/05/17 22:19 8 mg O ONE Administration Enoxaparin Sodium 40 mg 11/06/17 09:00 11/06/17 10:05 Lovenox SQ 40 mg DAILY HERMELINDO Administration Enoxaparin Sodium 40 mg 11/08/17 09:00 11/08/17 08:59 Lovenox SQ 40 mg DAILY HERMELINDO Administration Flecainide Acetate 100 mg 11/06/17 09:00 11/06/17 03:37 Tambocor PO 100 mg BID HERMELINDO Administration Furosemide 40 mg 11/07/17 16:00 11/10/17 05:40 Lasix 40 Mg/4 Ml IVP 40 mg Q12H HERMELINDO Administration Furosemide 40 mg 11/10/17 17:00 11/11/17 09:22 Lasix 40 Mg Tab PO 40 mg 0900,1700 HERMELINDO Administration Furosemide 40 mg 11/12/17 09:00 11/12/17 08:49 Lasix 40 Mg Tab PO 40 mg DAILY HERMELINDO Administration Heparin Sodium (Beef Lung) 3,700 unit 11/06/17 13:00 11/06/17 13:26 Heparin Bolus 60 unit/kg (3700 unit) 11/06/17 13:01 3,700 unit IV Administration O ONE Heparin Sodium (Porcine) 1 each 11/06/17 11:08 Pharmacy Consult - Heparin 11/06/17 11:09 ONE TIME ONE Magnesium Sulfate/Dextrose 1 gm in 100 mls @ 100 mls/hr 11/06/17 04:00 06:22 Mag Sulf 1gm Premix IV 11/06/17 05:59 Infused Q1H [facility] Infusion Amiodarone HCl 450 mg/ Sodium 250 mls @ 33.33 mls/hr 11/06/17 05:30 11/06/17 13:00 Chloride IV 11/06/17 11:30 Infused .Q7H31M HERMELINDO Infusion 1 MG/MIN Amiodarone HCl 150 mg/ Sodium 103 mls @ 618 mls/hr 11/06/17 04:51 11/06/17 05 :16 Chloride IV 11/06/17 05:00 Infused O ONE Infusion Amiodarone HCl 900 mg/ Sodium 500 mls @ 16.66 mls/hr 11/06/17 11:30 11/06/17 14:22 Chloride IV Infused .Q24H HERMELINDO Infusion 0.5 MG/MIN Magnesium Sulfate/Dextrose 1 gm in 100 mls @ 100 mls/hr 11/06/17 11:00 14:23 Mag Sulf 1gm Premix IV 11/06/17 12:59 100 mls/hr Q1H HERMELINDO Administration Heparin Sodium (Porcine) 20,000 unit in 500 mls @ 18 mls/hr 11/06/17 13:00 15:42 Heparin Drip IV Infused .Q24H HERMELINDO Titration Protocol Lidocaine HCl 10 mg/ Potassium 100 mls @ 100 mls/hr 11/07/17 09:15 11/07/17 16:42 Chloride 10 meq/ Sodium IV 11/07/17 13:28 Infused Chloride .Q1H HERMELINDO Infusion Magnesium Sulfate/Dextrose 1 gm in 100 mls @ 100 mls/hr 11/08/17 06:15 09:05 Mag Sulf 1gm Premix IV 11/08/17 08:14 Infused Q1H HERMELINDO Infusion Sodium Chloride 1,000 mls @ 125 mls/hr 11/08/17 21:45 11/10/17 19:48 Normal Saline IV Infused .Q8H HERMELINDO Infusion Amiodarone HCl 150 mg/ Sodium 103 mls @ 618 mls/hr 11/09/17 09:28 11/09/17 10 :26 Chloride IV 11/09/17 09:37 Infused O ONE Infusion Magnesium Sulfate/Dextrose 1 gm in 100 mls @ 100 mls/hr 11/10/17 13:40 15:08 Mag Sulf 1gm Premix IV 11/10/17 14:39 Infused O ONE Infusion Magnesium Sulfate/Dextrose 1 gm in 100 mls @ 100 mls/hr 11/10/17 14:45 19:38 Mag Sulf 1gm Premix IV 11/10/17 16:44 Infused Q1H HERMELINDO Infusion Magnesium Sulfate/Dextrose 1 gm in 100 mls @ 100 mls/hr 11/10/17 16:30 16:59 Mag Sulf 1gm Premix IV 11/10/17 18:29 Not Given Q1H HERMELINDO Ibuprofen 200 mg 11/09/17 10:33 11/09/17 11:14 Motrin PO 11/09/17 10:34 200 mg O ONE Administration Labetalol HCl 20 mg 11/06/17 01:08 11/06/17 04:18 Trandate IVP 20 mg Q10M PRN Administration Hypertension Levothyroxine Sodium 25 mcg 11/06/17 06:30 11/07/17 08:29 Synthroid PO 25 mcg ACB HERMELINDO Administration Lisinopril 10 mg 11/06/17 09:00 Prinivil PO DAILY HERMELINDO Lorazepam 0.5 - 1 mg 11/07/17 15:40 Ativan PO Q4H PRN Anxiety Lorazepam 0.5 - 1 mg 11/07/17 15:40 Ativan Inj IVP Q4H PRN Anxiety Magnesium Hydroxide 30 ml 11/07/17 15:40 Mom PO DAILY PRN Constipation Magnesium Oxide 400 mg 11/08/17 21:00 11/10/17 09:52 Magox PO 400 mg BID HERMELINDO Administration Magnesium Oxide 800 mg 11/10/17 21:00 11/12/17 08:39 Magox PO 800 mg BID HERMELINDO Administration Metoclopramide HCl 5 mg 11/06/17 10:55 Reglan IVP Q6H PRN Metoclopramide HCl 5 - 10 mg 11/07/17 15:40 Reglan IVP Q6H PRN Nausea &/or vomiting Metoprolol Succinate 25 mg 11/09/17 17:00 11/11/17 09:22 Toprol Xl PO 11/11/17 09:00 25 mg DAILY HERMELINDO Administration Metoprolol Succinate 50 mg 11/11/17 09:00 11/11/17 09:21 Toprol Xl PO 50 mg DAILY HERMELINDO Administration Metoprolol Succinate 25 mg 11/10/17 15:00 11/10/17 15:19 Toprol Xl PO 11/10/17 15:01 25 mg O ONE Administration Metoprolol Succinate 75 mg 11/11/17 09:30 11/12/17 08:49 Toprol Xl PO 75 mg DAILY HERMELINDO Administration Metoprolol Tartrate 5 mg 11/05/17 22:00 11/05/17 23:05 Lopressor IVP 5 mg Q2MIN HERMELINDO Administration Morphine Sulfate 2 - 4 mg 11/06/17 09:07 11/06/17 13:19 Morphine Sulfate Inj IVP 2 mg Q1H PRN Administration Pain Morphine Sulfate 2 - 4 mg 11/07/17 15:40 Morphine Sulfate Inj IVP 11/08/17 15:39 Q2H PRN Pain Morphine Sulfate 2 - 4 mg 11/07/17 15:40 Morphine Sulfate Inj IVP Q5M PRN Angina Nitroglycerin 0.4 mg 11/07/17 15:40 Nitrostat SL Q5M PRN Angina Omeprazole 20 mg 11/11/17 06:30 11/12/17 05:58 Prilosec PO 20 mg ACB HERMELINDO Administration Ondansetron HCl 4 mg 11/06/17 10:57 11/06/17 11:38 Zofran IVP 11/06/17 10:58 4 mg O ONE Administration Ondansetron HCl 4 mg 11/07/17 15:40 11/08/17 19:13 Zofran IVP 4 mg Q6H PRN Administration Nausea &/or vomiting Pantoprazole Sodium 40 mg 11/06/17 09:00 11/07/17 08:28 Protonix Iv IVP 40 mg DAILY HERMELINDO Administration Pantoprazole Sodium 40 mg 11/08/17 06:30 11/10/17 06:12 Protonix Tab PO 40 mg ACB HERMELINDO Administration Pharmacy Consult 1 each 11/06/17 01:48 Pharmacy Consult - Fall Risk 11/06/17 01:49 ONE TIME ONE Pharmacy Consult 1 each 11/09/17 23:51 Pharmacy Consult - Fall Risk 11/09/17 23:52 ONE TIME ONE Potassium Chloride 20 meq 11/07/17 17:30 11/11/17 08:31 K-Dur 20 Meq Tablet PO Not Given BIDWM HERMELINDO Potassium Chloride 10 meq 11/11/17 08:15 11/11/17 09:21 K-Dur 10 Meq Tablet PO 10 meq BIDWM HERMELINDO Administration Potassium Chloride 10 meq 11/12/17 08:00 11/12/17 08:49 K-Dur 10 Meq Tablet PO 10 meq WB HERMELINDO Administration Promethazine HCl 12.5 - 25 mg 11/07/17 15:40 Phenergan Inj IVP Q6HR PRN Nausea &/or vomiting Sacubitril/Valsartan 1 tab 11/07/17 21:00 11/12/17 08:46 Entresto 24/26mg PO Not Given BID HERMELINDO Sodium Chloride 10 - 80 ml 11/05/17 21:39 11/07/17 16:33 Iv Flush IVF 10 ml PRN PRN Administration Flushing Sodium Chloride 500 ml 11/09/17 09:25 11/09/17 09:33 Normal Saline IV 11/09/17 09:26 Not Given O ONE Results 11/11/17 05:25 11/12/17 04:28 Assessment and Plan - Assessment and Plan (1) HTN (hypertension) Status: Chronic (2) Ventricular tachyarrhythmia Status: Acute (3) Presence of cardiac pacemaker Problem details: iStorez Status: Chronic (4) Paroxysmal atrial fibrillation Status: Chronic (5) Mixed hyperlipidemia Status: Chronic (6) Cardiomyopathy Problem details: Non ischemic Status: Acute - Attestation Attestation Narrative: 11/19/17 12:52 Recommendation After examining the patient I agree with the above assessment. I am involved in the formulation of the patient's plan of care. Hospital Course Summary Disclaimer: The visit summary below is not to be considered part of the above Progress Note.
[2017-11-07] MEDS ORDERED: METOCLOPRAMIDE 10mg/2ml INJECTION IVP PRN (15:40)
[2017-11-07] MEDS ORDERED: PROMETHAZINE 25 MG INJECTION IVP PRN (15:40)
[2017-11-07] MEDS ORDERED: NITROGLYCERIN 0.4 MG SUBLINGUAL TABLET SL PRN (15:40)
[2017-11-07] MEDS ORDERED: ATROPINE 1 MG/ML INJECTION IVP PRN (15:40)
[2017-11-07] MEDS ORDERED: BISACODYL 10 MG SUPPOSITORY RECTALLY PRN (15:40)
[2017-11-07] MEDS ORDERED: Bisacodyl EC TAB 5 MG TABLET PO PRN (15:40)
[2017-11-07] MEDS ORDERED: HYDROCODONE/APAP 5mg/325mg TABLET PO PRN ×2 (15:40→19:35)
[2017-11-07] MEDS ORDERED: MORPHINE SULFATE 4mg INJECTION IVP PRN ×2 (15:40)
[2017-11-07] MEDS ORDERED: LORazepam 0.5 MG TABLET PO PRN (15:40)
[2017-11-07] MEDS ORDERED: ONDANSETRON 4 MG/2 ML INJECTION IVP PRN (15:40)
[2017-11-07] MEDS ORDERED: MAG-AL + SIM ORAL LIQUID 30ml PO PRN (15:40)
[2017-11-07] MEDS: HEPARIN DRIP 20,000 UNIT/500 ML BAG IV SCH (15:41)
[2017-11-07] MEDS: CARVEDILOL 3.125 MG TABLET PO SCH (16:32)
[2017-11-07] MEDS: FUROSEMIDE 40 MG/4 ML INJECTION IVP SCH (16:33)
--- NOTE | 2017-11-07 17:57 | Progress Note ---
- Date 11/07/17 Subjective: Mrs. Betancourt begin speaking more fluently late yesterday afternoon and is now speaking with normal pattern; she's been speaking with friends and family members on the phone all day according to nursing. Patient denies dyspnea but reports having a chronic cough productive of minimal sputum which her daughter described yesterday and reports she believes is due to reflux. Patient denies chest pain or palpitations today and is back in sinus rhythm. She denies nausea or vomiting. She ambulated in the halls with physical therapy and denied lightheadedness. Overall she reports feeling back to normal and has no concerns. When seen earlier she was nothing by mouth and waiting for cardiac catheterization which was later completed and demonstrated no occlusive disease. Objective Vital signs: Temperature 97.6 F 11/07/17 15:45 Pulse Rate 60 11/07/17 16:00 Respiratory Rate 15 11/07/17 15:45 Blood Pressure 145/70 H 11/07/17 15:45 Pulse Oximetry 98 - RA 11/07/17 16:58 NAD, alert, fluent speech although occasional word searching noted and patient tends to jump from one subject to another fairly rapidly EOMI, conjunctiva clear, facial structure symmetric Soft tissue fullness right supraclavicular fossa-areas not firm or nodular Respirations nonlabored, good airflow, breath sounds clear Regular rhythm, S1-S2 Abdomen soft, nontender, bowel sounds present Extremities without edema MAEW, no drift, crusher foreman symmetric, moving lower extremities symmetrically/normal tone Sensation intact to light touch 4 extremities Height/Weight/BMI: Height 1.45 m Weight 60.7 kg Body Mass Index 29.3 Results - Labs CBC & Chem 7: 11/07/17 04:50 11/07/17 04:50 Labs: Magnesium 1.9 PTT 54.0 - Echocardiogram History of Echocardiogram: Echo obtained yesterday: 1. Global hypokinesia with ejection fraction of about 30-35%. 2. Concentric left ventricular hypertrophy. 3. Device wires are seen in right heart. 4. Dilated inferior vena cava suggestive of elevated central venous pressure. 5. Mild mitral regurgitation. 6. Mild tricuspid regurgitation with moderate pulmonary hypertension with estimated pulmonary artery systolic pressure of 50. 6. Trace of pulmonary insufficiency. - Imaging and Cardiology CTA head/CT head with contrast Status: image reviewed by me (ventricular dilatation-unchanged from the past; extensive periventricular changes consistent with chronic small vessel disease but no evidence of an acute ischemic event on contrast study. 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 Imaging to date has not revealed acute stroke and unable to obtain MRI. Clinical course consistent with stroke. Converted from atrial fibrillation back to sinus rhythm (with occasional paced rhythm) on amiodarone. Cardiac catheterization today without evidence of significant coronary disease- formal report pending. Echocardiogram with ejection fraction 30-35%, global hypokinesis, and LVH. No significant valvular disease but PAP 50. Cardiology has initiated Entresto, carvedilol, and plans LifeVest with respect to cardiomyopathy. Lisinopril and atenolol discontinued in light of above changes. Discussed longer-term anticoagulation with cardiology-given paroxysmal atrial fibrillation and evidence of cardioembolic event believe anticoagulation should be considered. Potassium replaced IV this morning; magnesium relatively stable. Levothyroxine discontinued for now; free T4 excessively elevated, TSH depressed following dose increase in September from 75 to 100 g after outpatient labs revealed TSH 5.12 and free T4 1.3 Yesterday's note referred to discontinuing levofloxacin due to excessive thyroid level due to misstatement-should have referred to levothyroxine. Stable to transfer out of ICU, continue telemetry. DVT Prophylaxis: SCD's, Lovenox GI Prophylaxis: Protonix Resuscitation Status: Full Code - Physician Narrative Narrative: Date: 11/07/17 Time: 1751 Hospital Course Summary Disclaimer: The visit summary below is not to be considered part of the above Progress Note. Hospital Course: 11/06/17 Patient admitted to ICU with combined acute stroke, arrhythmias, hyperthyroidism , and hypomagnesemia. Will require CT imaging of the head with contrast/CTA when arrhythmias stabilize and permit. Continue aspirin at present. Speech therapy evaluation in conjunction with PT/ OT. Discontinue levofloxacin, may require endocrine evaluation. Will need initiation of beta ritu. Avoid hypotension or excessive lowering of blood pressure due to acute stroke. Echocardiogram pending, carotid Dopplers obtained-negative for occlusive disease. Cardiology consultation for assistance with arrhythmias. Continue magnesium replacement, repeat electrolytes pending at this time of this dictation. Patient is critically ill-time in 1050, Timeout 1146. Discussed with patient's daughter/DPOA. Discussed with nursing, discussed with cardiology. 11/07/17 Expressive aphasia has resolved, no other neurological deficits present. Imaging to date has not revealed acute stroke and unable to obtain MRI. Clinical course consistent with stroke. Converted from atrial fibrillation back to sinus rhythm (with occasional paced rhythm) on amiodarone. Cardiac catheterization today without evidence of significant coronary disease- formal report pending. Echocardiogram with ejection fraction 30-35%, global hypokinesis, and LVH. No significant valvular disease but PAP 50. Cardiology has initiated Entresto, carvedilol, and plans LifeVest with respect to cardiomyopathy. Lisinopril and atenolol discontinued in light of above changes. Discussed longer-term anticoagulation with cardiology-given paroxysmal atrial fibrillation and evidence of cardioembolic event believe anticoagulation should be considered. Potassium replaced IV this morning; magnesium relatively stable. Levothyroxine discontinued for now; free T4 excessively elevated, TSH depressed following dose increase in September from 75 to 100 g after outpatient labs revealed TSH 5.12 and free T4 1.3 Transfer to medical unit.
--- NOTE | 2017-11-07 18:02 | Cardiac Catheterization Report ---
DATE OF PROCEDURE November 07, 2017 The patient is a 62-year lady who was admitted with multiple runs of the ventricular tachycardia. Despite low magnesium and replacement the patient continued to have some ventricular tachycardia and was referred for further evaluation by cardiac catheterization and possible intervention. Informed consent was obtained after explaining the procedure and the potential risks to the patient who agreed to proceed with the procedure. PROCEDURE 1. Left heart catheterization. 2. Coronary angiography. 3. Left ventriculography. TECHNIQUE She was prepped and draped in the usual sterile techniques. 1% lidocaine was used for local anesthesia. Conscious sedation was performed using Versed and fentanyl. Using modified Seldinger technique, arterial access was obtained into the right radial artery with placement of a 6-Sami arterial sheath. LEFT VENTRICULOGRAPHY Left ventriculography in single-plane VAUGHAN shallow projection showed global hypokinesia with ejection fraction of about 30% with no mitral regurgitation or gradient across the aortic valve. LVEDP was about 29. CORONARY ANGIOGRAPHY Left main, left anterior descending and diagonals, left circumflex and marginals and right coronary artery were all free of significant lesions. The patient tolerated the procedure well with no complications. IMPRESSION 1. Nonischemic cardiomyopathy. 2. LV dysfunction with ejection fraction of about 30%. 3. No significant coronary obstructive disease. PLAN Medical management. REECED
[2017-11-07] MEDS: ATORVASTATIN 20 MG TABLET PO SCH (20:40)
[2017-11-07] MEDS: SACUBITRIL/VALSARTAN 24/26mg TABLET PO SCH (20:40)
[2017-11-08] MEDS: FUROSEMIDE 40 MG/4 ML INJECTION IVP SCH ×2 (04:08→17:13)
[2017-11-08] MEDS: PANTOPRAZOLE 40 MG TABLET PO SCH (05:42)
[2017-11-08] MEDS: MAGNESIUM SULFATE 1gm PREMIX 1 GM/100 ML BAG IV SCH ×2 (06:17→07:55)
[2017-11-08] MEDS: ACETAMINOPHEN 325 MG TABLET PO PRN ×2 (07:16→19:53)
[2017-11-08] MEDS: ASPIRIN *EC* 81 MG TABLET PO SCH (08:51)
[2017-11-08] MEDS: CLOPIDOGREL 75 MG TABLET PO SCH (08:52)
[2017-11-08] MEDS: SACUBITRIL/VALSARTAN 24/26mg TABLET PO SCH ×2 (08:52→20:12)
[2017-11-08] MEDS: CALCIUM CARBONATE 600 MG TABLET PO SCH (08:52)
[2017-11-08] MEDS ORDERED: ENOXAPARIN 40 MG/0.4 ML INJECTION SQ SCH (09:00)
[2017-11-08] MEDS: AMIODARONE 200 MG TABLET PO SCH (09:03)
[2017-11-08] MEDS: CARVEDILOL 3.125 MG TABLET PO SCH ×2 (09:03→17:17)
--- NOTE | 2017-11-08 11:41 | Progress Note ---
- Date 11/08/17 Subjective: Emily was resting in her bed, awakened easily when greeted. She was in no acute distress. She states that she doesn't feel well, but can't explain why. She denies chest pain, difficulty breathing, palpitations, abdominal pain, nausea or vomiting, weakness or dizziness. She thinks that part of the reason that she doesn't feel well, might be medication related, for example, some of her new medications started during hospitalization. She inquires about the flecainide that she used to take, which has been discontinued by cardiology. Objective Vital signs: Temperature 97.7 F 11/08/17 07:13 Pulse Rate 61 11/08/17 07:32 Respiratory Rate 14 11/08/17 07:13 Blood Pressure 141/70 H 11/08/17 07:13 Pulse Oximetry 95 11/08/17 07:13 Height/Weight/BMI: Height 1.45 m Weight 59.4 kg Body Mass Index 29.3 - Constitutional Present: no acute distress, well nourished, well developed - Routine HEENT Exam Head: Present: normocephalic Eye: Present: PERRL. Absent: conjunctival icterus, scleral injection - Routine Respiratory Exam Present: CTA bilaterally - Routine Cardiovascular Exam Present: RRR, S1, S2 - Routine Abdominal Exam Present: soft, normoactive bowel sounds, non distended, non tender - Routine Extremities Exam Present: no edema - Routine Skin Exam Present: intact, dry, warm - Routine Neurological Exam Present: alert, oriented X3, moving all extremities, normal speech - Routine Psychiatric Exam Present: normal affect, normal thought process, cooperative Results - Labs CBC & Chem 7: 11/08/17 19:07 11/08/17 19:07 Assessment and Plan (1) Expressive aphasia Current visit: Yes Status: Acute Assessment and Plan: Impression: Expressive aphasia/acute ischemic stroke Paroxysmal atrial fibrillation with RVR Hypomagnesemia Hyperthyroidism due to excess levothyroxine replacement Possible ventricular arrhythmias Hypertension Metabolic encephalopathy Hyperlipidemia Hypokalemia, not POA GERD Cardiomyopathy Thrombocytosis Plan: Patient remains in sinus rhythm. She is hemodynamically stable. Continue Entresto, carvedilol and LifeVest per cardiology. Magnesium down to 1.3, and IV replacement has been ordered. Potassium has been corrected to 3.8. Levothyroxine has been discontinued. White count is stable, hemoglobin 15.1. Platelets have increased to 428. Will reassess in the morning along with BMP and magnesium level. DVT Prophylaxis: Lovenox GI Prophylaxis: Protonix Resuscitation Status: Full Code - Physician Narrative Physician: Kelle Bond MD Narrative: Date: 11/08/17 Time: 2129 I have independently evaluated and examined this patient. I reviewed the chart, the patient's history, and the RECEIVING TELLER/PA's documented findings as above. We discussed and formulated the assessment and plan as above with additions as below: Mrs. Betancourt was seen twice today. She was initially seen on usual rounds this morning at which time she reported her speech seemed completely normal and she denied chest pain, palpitations, or nausea. At that time examination was unremarkable. I was called back to her bedside urgently at 1844 after nursing reported that she was up to the bathroom and "went limp" at 1839. Initial blood pressure was 75/36 and no seizure activity was present. When I arrived between 1844 and 1849 the patient was supine, groggy, and mumbling-she responded to voice, answered in a weak voice with appropriate verbal responses and no evidence of recurrent expressive aphasia; she gripped with both hands symmetrically and dorsiflex/ plantarflex both ankles. She subsequently transferred for stat CT scan which was unchanged from prior imaging by my review and report subsequently received by [facility] radiology. I reevaluated the patient at approximately 1930 at which time speech was stronger and she was able to tell me that she was up to the bathroom to urinate and have a bowel movement, she denied diarrhea or straining and was aware of feeling bad when she got up and became aware of feeling dizzy/lightheaded while sitting on the toilet. She describes her vision getting dim and then doesn't really recall anything for brief period of time. She specifically denies chest pain or palpitations and no arrhythmias were reported by telemetry. Cumulative fluid balance has been negative for little over one liters during hospitalization, weight is down approximately 3 kg since admission, hemoglobin has increased from 12.1--> 16, and creatinine is up to 1.3 on labs checked this evening (from 0.8 this morning); troponin 0.091. Mild orthostasis on vital signs this evening. Syncope--likely due to dehydration +/-post micturition syncope, no indication of arrhythmia. Reassess after fluids. Dehydration--> normal saline tonight at 125 mL/hr Orthostatic hypertension Elevated troponin--> EKG tonight, recheck in a.m. Hypomagnesemia--recheck on blood work from earlier this evening and in a.m. Paroxysmal atrial fibrillation--discussed with cardiology, discontinue Plavix and Lovenox, start Eliquis in a.m. 40 minutes in patient care this evening. Hospital Course Summary Disclaimer: The visit summary below is not to be considered part of the above Progress Note. Hospital Course: 11/06/17 Patient admitted to ICU with combined acute stroke, arrhythmias, hyperthyroidism , and hypomagnesemia. Will require CT imaging of the head with contrast/CTA when arrhythmias stabilize and permit. Continue aspirin at present. Speech therapy evaluation in conjunction with PT/ OT. Discontinue levofloxacin, may require endocrine evaluation. Will need initiation of beta ritu. Avoid hypotension or excessive lowering of blood pressure due to acute stroke. Echocardiogram pending, carotid Dopplers obtained-negative for occlusive disease. Cardiology consultation for assistance with arrhythmias. Continue magnesium replacement, repeat electrolytes pending at this time of this dictation. Patient is critically ill-time in 1050, Timeout 1146. Discussed with patient's daughter/DPOA. Discussed with nursing, discussed with cardiology. 11/07/17 Expressive aphasia has resolved, no other neurological deficits present. Imaging to date has not revealed acute stroke and unable to obtain MRI. Clinical course consistent with stroke. Converted from atrial fibrillation back to sinus rhythm (with occasional paced rhythm) on amiodarone. Cardiac catheterization today without evidence of significant coronary disease- formal report pending. Echocardiogram with ejection fraction 30-35%, global hypokinesis, and LVH. No significant valvular disease but PAP 50. Cardiology has initiated Entresto, carvedilol, and plans LifeVest with respect to cardiomyopathy. Lisinopril and atenolol discontinued in light of above changes. Discussed longer-term anticoagulation with cardiology-given paroxysmal atrial fibrillation and evidence of cardioembolic event believe anticoagulation should be considered. Potassium replaced IV this morning; magnesium relatively stable. Levothyroxine discontinued for now; free T4 excessively elevated, TSH depressed following dose increase in September from 75 to 100 g after outpatient labs revealed TSH 5.12 and free T4 1.3 Transfer to medical unit. 11/08/17 Patient remains in sinus rhythm. She is hemodynamically stable. Continue Entresto, carvedilol and LifeVest per cardiology. Magnesium down to 1.3, and IV replacement has been ordered. Potassium has been corrected to 3.8. Levothyroxine has been discontinued. White count is stable, hemoglobin 15.1. Platelets have increased to 428. Will reassess in the morning along with BMP and magnesium level. Syncope until earlier this evening, repeat CT head unremarkable. Creatinine, hemoglobin, and fluid balance in conjunction with weight loss suggest dehydration. Mildly orthostatic; replace volume overnight. No arrhythmias were telemetry at time of syncopal event and patient was up to the bathroom one episode occurred. EKG pending, troponin slightly increased-recheck in a.m. No significant coronary disease by cardiac catheterization yesterday.
[2017-11-08] MEDS: MAGNESIUM OXIDE 400 MG TABLET PO SCH (20:12)
[2017-11-08] MEDS: ATORVASTATIN 20 MG TABLET PO SCH (20:12)
[2017-11-08] MEDS: NS 1,000 ML IV SCH (22:06)
[2017-11-09] MEDS: FUROSEMIDE 40 MG/4 ML INJECTION IVP SCH ×2 (03:56→17:37)
[2017-11-09] MEDS: PANTOPRAZOLE 40 MG TABLET PO SCH (05:51)
[2017-11-09] MEDS: NS 1,000 ML IV SCH ×5 (05:52→20:47)
[2017-11-09] MEDS: ACETAMINOPHEN 325 MG TABLET PO PRN (08:10)
[2017-11-09] MEDS: CARVEDILOL 3.125 MG TABLET PO SCH ×2 (09:06→09:32)
[2017-11-09] MEDS: CALCIUM CARBONATE 600 MG TABLET PO SCH (09:06)
[2017-11-09] MEDS: APIXABAN 5 MG TABLET PO SCH ×2 (09:06→20:25)
[2017-11-09] MEDS: AMIODARONE 200 MG TABLET PO SCH ×2 (09:06→09:33)
[2017-11-09] MEDS: MAGNESIUM OXIDE 400 MG TABLET PO SCH ×2 (09:07→20:25)
[2017-11-09] MEDS: ASPIRIN *EC* 81 MG TABLET PO SCH (09:07)
[2017-11-09] MEDS: SACUBITRIL/VALSARTAN 24/26mg TABLET PO SCH ×3 (09:07→20:25)
[2017-11-09] MEDS ORDERED: NS FLUSH BAG 500ml IV ONE (09:25)
[2017-11-09] MEDS ORDERED: AMIODARONE 150 MG in NS 100 ML IV ONE (09:28)
[2017-11-09] MEDS ORDERED: IBUPROFEN 200 MG TABLET PO ONE (10:33)
--- NOTE | 2017-11-09 10:40 | CT Scan Report ---
Indication: stroke response PROCEDURE: CT head/brain wo con: Encounter: Initial Comparison: CT dated November 06, 2017 Technique: Axial CT images through the head were performed without contrast. Iterative Reconstruction dose reducing technique was utilized. FINDINGS: The ventricles are dilated but unchanged. There are multiple areas of low attenuation in the white matter which most likely represent changes from chronic microvascular ischemia. The brainstem, cerebellum, and cerebral hemispheres otherwise have a normal morphology and CT attenuation. There is no evidence of midline displacement. No hemorrhage, signs of acute territorial stroke, mass effect, mass lesions, or edema is evident. The visualized portions of the skull base, midface, and calvarium demonstrate no abnormality. The paranasal sinuses are well aerated and free of significant disease. The tympanic and mastoid cavities appear normal. IMPRESSION: No acute intracranial abnormality or hemorrhage. Stable head CT. There is a preliminary report by [facility]. .
[2017-11-09] MEDS ORDERED: CYCLOBENZAPRINE 5 MG TABLET PO PRN (14:37)
--- NOTE | 2017-11-09 15:00 | Progress Note ---
- Date 11/09/17 Subjective: Mrs. Betancourt had no further difficulty overnight and was not orthostatic this morning after receiving IV fluids. Approximately 10 AM heart rate accelerated to ~130 with telemetry reporting paced rhythm with what appeared to be atrial fibrillation underlying. Blood pressure dropped in conjunction with the tachyarrhythmia. Fluid bolus was administered and cardiology subsequently resumed IV amiodarone. At present patient remains in atrial fibrillation with rate running about 100. When I saw the patient around noon she reported that she was feeling fine; she denied having palpitations and denied having chest pain earlier today. She denied dyspnea, nausea, or vomiting. Reports her bowels are working well. Her only concern was of intermittent headaches which she's been having since before hospitalization with associated trouble in her neck. She denied doing any recent lifting or work that would've strained her upper back. Headache this morning was relieved by Tylenol and subsequent dose of ibuprofen. Objective Vital signs: Temperature 97.4 F 11/09/17 12:36 Pulse Rate 95 11/09/17 12:36 Respiratory Rate 18 11/09/17 12:36 Blood Pressure 117/69 11/09/17 12:36 Pulse Oximetry 97 - RA 11/09/17 12:50 I/O 2570/2430 Weight today up 0.3 kg from yesterday NAD, alert, talkative with fluent speech EOMI, conjugate gaze, facial structure symmetric Respirations nonlabored, good airflow, breath sounds clear Slightly irregular rhythm with low-grade tachycardia, S1-S2 Abdomen soft, nontender, bowel sounds present/normal Extremities without edema Moving all extremities well with symmetric power and strength; normal motor tone Palpable spasm in the right trapezius which is tender to palpation, range of motion at the neck is good Height/Weight/BMI: Height 1.45 m Weight 59.7 kg Body Mass Index 29.3 Results - Labs CBC & Chem 7: 11/09/17 04:28 11/09/17 04:28 Labs: Magnesium 1.8 Troponin 0.091-0.068 - ECG Data Tracing #1 I reviewed this ECG and interpreted as documented below: (EKG this morning with atrial fibrillation, rate 132 poor R-wave progression, LAFB/LAD, no acute ST/T- wave changes) Assessment and Plan (1) Expressive aphasia Current visit: Yes Status: Acute Assessment and Plan: Impression: Expressive aphasia/acute ischemic stroke Paroxysmal atrial fibrillation with RVR Hypomagnesemia 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 Atenolol converted to carvedilol in the past 48 hours due to identification of cardiomyopathy, may have an adequate beta blockade with low-dose carvedilol. Discussed with cardiology. IV amiodarone resumed for A. fib, rate improved. Episodic hypotension, may correspond to initiation of Entresto, dose held this am. Continue volume replacement. Magnesium improved after IV replacement yesterday, oral replacement initiated yesterday evening. Levothyroxine on hold, recheck TSH/free T4 early in the week to help assess when to resume lower dose levothyroxine Hemoglobin remains elevated from baseline consistent with hemoconcentration, creatinine improving with hydration. Low-dose Flexeril and heating pad initiated for neck spasm in conjunction with Tylenol/ibuprofen for headache. Continue supportive care. We will ask OT to complete ABIOLA evaluation daughter has expressed concerns about patient's ability to manage medications at home. DVT Prophylaxis: Edenquis Resuscitation Status: Full Code - Physician Narrative Narrative: Date: 11/09/17 Time: 1455 Hospital Course Summary Disclaimer: The visit summary below is not to be considered part of the above Progress Note. Hospital Course: 11/06/17 Patient admitted to ICU with combined acute stroke, arrhythmias, hyperthyroidism , and hypomagnesemia. Will require CT imaging of the head with contrast/CTA when arrhythmias stabilize and permit. Continue aspirin at present. Speech therapy evaluation in conjunction with PT/ OT. Discontinue levofloxacin, may require endocrine evaluation. Will need initiation of beta ritu. Avoid hypotension or excessive lowering of blood pressure due to acute stroke. Echocardiogram pending, carotid Dopplers obtained-negative for occlusive disease. Cardiology consultation for assistance with arrhythmias. Continue magnesium replacement, repeat electrolytes pending at this time of this dictation. Patient is critically ill-time in 1050, Timeout 1146. Discussed with patient's daughter/DPOA. Discussed with nursing, discussed with cardiology. 11/07/17 Expressive aphasia has resolved, no other neurological deficits present. Imaging to date has not revealed acute stroke and unable to obtain MRI. Clinical course consistent with stroke. Converted from atrial fibrillation back to sinus rhythm (with occasional paced rhythm) on amiodarone. Cardiac catheterization today without evidence of significant coronary disease- formal report pending. Echocardiogram with ejection fraction 30-35%, global hypokinesis, and LVH. No significant valvular disease but PAP 50. Cardiology has initiated Entresto, carvedilol, and plans LifeVest with respect to cardiomyopathy. Lisinopril and atenolol discontinued in light of above changes. Discussed longer-term anticoagulation with cardiology-given paroxysmal atrial fibrillation and evidence of cardioembolic event believe anticoagulation should be considered. Potassium replaced IV this morning; magnesium relatively stable. Levothyroxine discontinued for now; free T4 excessively elevated, TSH depressed following dose increase in September from 75 to 100 g after outpatient labs revealed TSH 5.12 and free T4 1.3 Transfer to medical unit. 11/08/17 Patient remains in sinus rhythm. She is hemodynamically stable. Continue Entresto, carvedilol and LifeVest per cardiology. Magnesium down to 1.3, and IV replacement has been ordered. Potassium has been corrected to 3.8. Levothyroxine has been discontinued. White count is stable, hemoglobin 15.1. Platelets have increased to 428. Will reassess in the morning along with BMP and magnesium level. Syncope until earlier this evening, repeat CT head unremarkable. Creatinine, hemoglobin, and fluid balance in conjunction with weight loss suggest dehydration. Mildly orthostatic; replace volume overnight. No arrhythmias were telemetry at time of syncopal event and patient was up to the bathroom one episode occurred. EKG pending, troponin slightly increased-recheck in a.m. No significant coronary disease by cardiac catheterization yesterday. 11/09/17 Patient converted to atrial fibrillation this morning-patient is hyperthyroid currently due to excess hormone replacement. Atenolol converted to carvedilol in the past 48 hours due to identification of cardiomyopathy, may have an adequate beta blockade with low-dose carvedilol. Discussed with cardiology. IV amiodarone resumed for A. fib, rate improved. Episodic hypotension, may correspond to initiation of Entresto, dose held this am. Continue volume replacement. Magnesium improved after IV replacement yesterday, oral replacement initiated yesterday evening. Levothyroxine on hold, recheck TSH/free T4 early in the week to help assess when to resume lower dose levothyroxine Hemoglobin remains elevated from baseline consistent with hemoconcentration, creatinine improving with hydration. Low-dose Flexeril and heating pad initiated for neck spasm in conjunction with Tylenol/ibuprofen for headache. Continue supportive care. Will ask OT to complete ABIOLA evaluation daughter has expressed concerns about patient's ability to manage medications at home.
--- NOTE | 2017-11-09 15:22 | Cardiology Progress Note ---
<Karen Babcock T - Last Filed: 11/09/17 17:38> Subjective Principal diagnosis: VTach, A-fib, and ASHF Interval history: Last night 11/08 about 1800 pt was assisted from bathroom after urinating and BM, but did not strain. she stood up and went limp and placed in chair. She was not responsive for short time. SBP 70's, in SR. HR paced. no arrhythmias. blood sugar ok. stroke team called and CT head was not acute. Pt states she was aware but could not follow commands. Dr. Bond started IVF at 125ml/hr. Her BUN, Cr , Hbg were up slightly and WT was down 4 kg. Trop 0.09. Pt became A,A.and Ox3 per recheck. She was lightheaded prior to syncopal episode. no CP, SOB, or palpitations. This morning she went into A-fib. Dr. Bond gave her IVF 500ml bolus and cont IVF 125ml/hr. I gave her Amiodarone 150mg bolus. She converted to SR. She has been having intermittent headaches since before admit. She was given Tylenol for some relief and IB which resolved her headache. She has neck pain which Dr. Bond is treating with Flexeril. Entresto and Coreg held this am. Currently she is sitting up in chair discussed heart failure and a-fib with her. She denies chest pain, palpitations, nausea, headache at this time, lightheadedness. She states her brother lives in the garage of her house and does the yeard work and gardening. Daughter is arriving from [place] Fri. Exam Vital signs: Temperature 97.4 F 11/09/17 12:36 Pulse Rate 95 11/09/17 12:36 Respiratory Rate 18 11/09/17 12:36 Blood Pressure 117/69 11/09/17 12:36 Pulse Oximetry 97 11/09/17 12:50 Inpatient Medications: Acetaminophen (Tylenol) 325 - 650 mg PO Q5H PRN PRN Reason: Pain Last Admin: 11/09/17 08:10 Dose: 650 mg Hydrocodone Bitart/Acetaminophen ([place] 5/325) 1 - 2 tab PO Q5H PRN PRN Reason: Pain Hydrocodone Bitart/Acetaminophen ([place] 5/325) 1 tab PO Q6H PRN PRN Reason: Pain Albuterol Sulfate (Proventil Neb (0.083%)) 2.5 mg AEROSOL RTQID PRN Amiodarone HCl ([place]) 200 mg PO DAILY [facility] Last Admin: 11/09/17 09:33 Dose: 200 mg Apixaban (Eliquis) 5 mg PO BID [facility] Last Admin: 11/09/17 09:06 Dose: 5 mg Aspirin (Ecotrin) 81 mg PO DAILY [facility] Last Admin: 11/09/17 09:07 Dose: 81 mg - stop Atorvastatin Calcium (Lipitor) 20 mg PO HS [facility] Last Admin: 11/08/17 20:12 Dose: 20 mg Atropine Sulfate (Atropine) 0.5 mg IVP Q5M PRN PRN Reason: Bradycardia Calcium Carbonate (Caltrate) 600 mg PO DAILY [facility] Last Admin: 11/09/17 09:06 Dose: 600 mg Cyclobenzaprine HCl (Flexeril) 5 mg PO TID PRN PRN Reason: Muscle spasm Furosemide (Lasix 40 Mg/4 Ml) 40 mg IVP Q12H [facility] Last Admin: 11/09/17 03:56 Dose: 40 mg Sodium Chloride (Normal Saline) 1,000 mls @ 125 mls/hr IV .Q8H [facility] Last Admin: 11/09/17 15:35 Dose: Not Given Magnesium Oxide (Magox) 400 mg PO BID [facility] Last Admin: 11/09/17 09:07 Dose: 400 mg PRN Reason: Nausea &/or vomiting Metoprolol Succinate (Toprol Xl) 25 mg PO DAILY [facility] Morphine Sulfate (Morphine Sulfate Inj) 2 - 4 mg IVP Q1H PRN PRN Reason: Pain Last Admin: 11/06/17 13:19 Dose: 2 mg Ondansetron HCl (Zofran) 4 mg IVP Q6H PRN PRN Reason: Nausea &/or vomiting Last Admin: 11/08/17 19:13 Dose: 4 mg Pantoprazole Sodium (Protonix Tab) 40 mg PO ACB [facility] Last Admin: 11/09/17 05:51 Dose: 40 mg Potassium Chloride (K-Dur 20 Meq Tablet) 20 meq PO BIDWM [facility] Last Admin: 11/09/17 09:07 Dose: 20 meq Sacubitril/Valsartan (Entresto 24/26mg) 1 tab PO BID [facility] Last Admin: 11/09/17 09:32 Dose: Not Given - hold for SBP < 120 - Constitutional no acute distress, well nourished, well developed, cooperative Comments: she is awake and alert. A little scattered. - Routine Neck Exam Absent: JVD - Routine Respiratory Exam Present: CTA bilaterally - Routine Cardiovascular Exam Present: RRR Comments: no edema. no orthopnea. no SOB. - Routine Abdominal Exam Present: soft, non tender - Routine Extremities Exam Present: no edema, pulses intact - Routine Skin Exam Present: intact, dry - Routine Neurological Exam Present: alert, oriented X3, vision grossly intact, hearing grossly intact - Routine Psychiatric Exam Present: normal affect, normal thought process (not sure if she is understanding explanation of HF and A-fib. ), cooperative Results 11/09/17 04:28 11/09/17 04:28 Cardiac Enzymes 11/08/17 11/09/17 Range/Units 19:07 04:28 AST 19 (14-36) U/L Troponin I 0.091 D 0.068 (0-0.12) ng/ml Coagulation 11/08/17 Range/Units 19:07 APTT 27.7 (24-36) SEC CBC 11/08/17 11/09/17 Range/Units 19:07 04:28 WBC 8.1 7.8 (4.5-11.0) T/MM3 RBC 5.42 H 5.21 H (4.00-5.20) M/MM3 Hgb 16.0 15.5 (12-16) GM/DL Hct 47.9 H 46.3 H (36-46) % Plt Count 487 H 448 H (130-400) T/MM3 Neut # (Auto) 4.5 4.4 (1.8-7.7) T/MM3 Lymph # (Auto) 2.1 2.1 (1-4.8) T/MM3 Castro # (Auto) 1.0 H 1.0 H (0-0.8) T/MM3 Eos # (Auto) 0.2 0.2 (0-0.5) T/MM3 Baso # (Auto) 0.1 0.1 (0-0.2) T/MM3 Comprehensive Metabolic Panel 11/08/17 11/09/17 Range/Units 19:07 04:28 Sodium 141 141 (136-146) MEQ/L Potassium 4.6 D 4.3 (3.6-5) MEQ/L Chloride 101 104 (98-107) MEQ/L Carbon Dioxide 27 25 (22-30) MEQ/L BUN 22.0 H D 26.0 H (7-17) MG/DL Creatinine 1.3 H D 1.1 D (0.7-1.2) mg/dL Glucose 142 H 84 (65-110) MG/DL Calcium 9.7 8.8 D (8.4-10.2) MG/DL AST 19 (14-36) U/L ALT 27 (1-35) U/L Alkaline Phosphatase 86 (38-126) U/L Total Protein 7.7 (6.3-8.2) g/dL Albumin 4.6 (3.5-5.0) g/dL Intake and Output 11/09/17 11/09/17 11/09/17 06:59 14:59 22:59 Intake Total 1170.833 / 2563.495 0348.00 / 1873.00 Output Total 1650 / 1650 855 / 855 Balance -479.167 / -286.525 4217.00 / 1018.00 Intake: IV 970.833 / 116.364 2533.00 / 1103.00 Amiodarone 150 mg In Ns 100 ml 103 / 103 @ 618 mls/hr IV O ONE Rx#: [id number] Ns 1,000 ml @ 125 mls/hr IV . 970.833 / 245.621 4087.00 / 1000.00 Q8H [facility] Rx#:[id number] Oral 200 / 200 770 / 770 Output: Urine 1650 / 1650 855 / 855 Other: Urine Appearance Clear Clear Urine Color Pale Yellow Urine Odor Normal Normal Stool Color Brown Pale Stool Consistency Formed Yeni Size of Bowel Movement Small # Voids 1 2 # Bowel Movements 1 Weight 131 lb 9.855 oz Patient Weight 11/10/17 06:59 Weight 131 lb 9.855 oz Assessment and Plan - Assessment and Plan (1) HTN (hypertension) Status: Chronic (2) Ventricular tachyarrhythmia Status: Acute (3) Presence of cardiac pacemaker Problem details: Easy Ice Status: Chronic (4) Paroxysmal atrial fibrillation Status: Chronic (5) Mixed hyperlipidemia Status: Chronic (6) Cardiomyopathy Status: Acute - Assessment and Plan 11/06/17 Ventricular tachyarrhythmia Current visit: Yes Status: Acute - Mag 1.5, replace with 2gm per IV - Plan C tomorrow due to ventricular arrhythmia. - NPO except meds after MN - Continue to monitor telemetry Presence of cardiac pacemaker Problem details: Easy Ice Current visit: Yes Status: Chronic - interrogate please Paroxysmal atrial fibrillation Current visit: Yes Status: Chronic - Previously on Flecainide 100mg BID and Aspirin 325mg daily - Takes Atenolol 25mg daily for rate control. - Amiodarone 200mg daily for AAT Mixed hyperlipidemia Current visit: Yes Status: Chronic - Takes Atorvastatin 20mg daily HTN (hypertension) Current visit: Yes Status: Chronic - Continue Atenolol and Lisinopril Thank you for allowing us to participate in the care of this patient. 11/07/17 Dilated, Acute, cardiomyopathy - EF 30-35% - LifeVest - Coreg and Entresto Change Atenolol to Coreg due to reduced EF of 30-35% - DC Lisinopril. Entresto 24/26mg 36 hours after last dose of Lisinopril - Lasix 40mg BID with KCL 20meq BID - Monitor renal and electrolytes 11/09/2017 Dilated, Acute, cardiomyopathy - EF 30-35% - 11/07/2017 HC: no CAD. - Entresto 24/26 with parameters to hold if SBP < 120. When Entresto was started her SBP dropped from 140 to 75 (standing). - Held Entresto and Coreg this am due to hypotension. - Stop Coreg and start metoprolol succ due to A-fib and thyroid issues. - Lasix 40mg BID with KCL 20meq BID - on 11/08 and 11/09 U/O > 2000 with bal (- 2000) on 11/08. - now too dry and giving IVF. - Monitor I/O, Wts, renal and electrolytes - Life Vest ordered - fit on Friday per RN. Syncopal episode / hypotension on 11/08 - no arrhythmias, SBP 70's, Wt down 4 kg, Cr, BUN, Hbg, slightly up. may be too dry. - lungs clear, no edema, no orthopnea - can tolerate IVF. - IVF 500ml bolus this am and IVF at 125ml/hr. - 11/08 CT head not acute. - 11/06 carotid doppler: no sigificant stenosis. A-fib w RVR - wnet into A-fib 78 am and convert back to SR this am. - cont amiodarone 200mg po daily - gave amiodarone 125mg IV bolus. - treated headache and resolved. - K+ and Mag wnl. TSH low and FT4 high Hypothyroid - TSH 0.03 (low) and FT4 2.34 (high) - levothyroxine was increased prior to hospitalization due to low thyroid. Now high and - Levothyroxine stopped, Dr. Bond plans recheck and restart in future. - maybe contributing to A-fib - we stopped atenolol and started Coreg for SHF. May need BB for HR. - stop Coreg and start metoprolol succinate 25mg daily. PPM in situ TIA Disposition - Dr. Bond plans ABIOLA eval. - PT states her brother lives with her and takes care of yard work. - Daughter from [place] due to arrive on Fri. Hospital Course Summary Disclaimer: The visit summary below is not to be considered part of the above Progress Note. Hospital Course: 11/06/17 Patient admitted to ICU with combined acute stroke, arrhythmias, hyperthyroidism , and hypomagnesemia. Will require CT imaging of the head with contrast/CTA when arrhythmias stabilize and permit. Continue aspirin at present. Speech therapy evaluation in conjunction with PT/ OT. Discontinue levofloxacin, may require endocrine evaluation. Will need initiation of beta ritu. Avoid hypotension or excessive lowering of blood pressure due to acute stroke. Echocardiogram pending, carotid Dopplers obtained-negative for occlusive disease. Cardiology consultation for assistance with arrhythmias. Continue magnesium replacement, repeat electrolytes pending at this time of this dictation. Patient is critically ill-time in 1050, Timeout 1146. Discussed with patient's daughter/DPOA. Discussed with nursing, discussed with cardiology. 11/07/17 Expressive aphasia has resolved, no other neurological deficits present. Imaging to date has not revealed acute stroke and unable to obtain MRI. Clinical course consistent with stroke. Converted from atrial fibrillation back to sinus rhythm (with occasional paced rhythm) on amiodarone. Cardiac catheterization today without evidence of significant coronary disease- formal report pending. Echocardiogram with ejection fraction 30-35%, global hypokinesis, and LVH. No significant valvular disease but PAP 50. Cardiology has initiated Entresto, carvedilol, and plans LifeVest with respect to cardiomyopathy. Lisinopril and atenolol discontinued in light of above changes. Discussed longer-term anticoagulation with cardiology-given paroxysmal atrial fibrillation and evidence of cardioembolic event believe anticoagulation should be considered. Potassium replaced IV this morning; magnesium relatively stable. Levothyroxine discontinued for now; free T4 excessively elevated, TSH depressed following dose increase in September from 75 to 100 g after outpatient labs revealed TSH 5.12 and free T4 1.3 Transfer to medical unit. 11/08/17 Patient remains in sinus rhythm. She is hemodynamically stable. Continue Entresto, carvedilol and LifeVest per cardiology. Magnesium down to 1.3, and IV replacement has been ordered. Potassium has been corrected to 3.8. Levothyroxine has been discontinued. White count is stable, hemoglobin 15.1. Platelets have increased to 428. Will reassess in the morning along with BMP and magnesium level. Syncope until earlier this evening, repeat CT head unremarkable. Creatinine, hemoglobin, and fluid balance in conjunction with weight loss suggest dehydration. Mildly orthostatic; replace volume overnight. No arrhythmias were telemetry at time of syncopal event and patient was up to the bathroom one episode occurred. EKG pending, troponin slightly increased-recheck in a.m. No significant coronary disease by cardiac catheterization yesterday. <Andrez Rowe - Last Filed: 11/19/17 12:51> Exam Vital signs: Temperature 97.5 F 11/12/17 12:25 Pulse Rate 83 11/12/17 12:25 Respiratory Rate 14 11/12/17 12:25 Blood Pressure 102/52 11/12/17 12:25 Pulse Oximetry 98 11/12/17 12:25 Inpatient Medications: Discontinued Medications Generic Name Dose Route Start Last Admin Trade Name Freq PRN Reason Stop Dose Admin Acetaminophen 650 mg 11/06/17 01:08 11/06/17 01:23 Tylenol PO 650 mg Q6H PRN Administration Fever Acetaminophen 325 - 650 mg 11/07/17 15:40 11/12/17 12:48 Tylenol PO 650 mg Q5H PRN Administration Pain Hydrocodone Bitart/Acetaminophen 1 tab 11/06/17 01:39 11/06/17 03:27 [place] 5/325 PO 1 tab Q4H PRN Administration Pain Hydrocodone Bitart/Acetaminophen 1 - 2 tab 11/07/17 15:40 [place] 5/325 PO Q5H PRN Pain Hydrocodone Bitart/Acetaminophen 1 tab 11/07/17 19:35 [place] 5/325 PO Q6H PRN Pain Al Hydroxide/Mg Hydroxide 30 ml 11/07/17 15:40 Maalox Plus PO Q3H PRN Indigestion Albuterol Sulfate 8 puff 11/05/17 22:18 11/05/17 22:22 Ventolin Hfa ORAL INH 11/05/17 22:19 2 puff O ONE Administration Albuterol Sulfate 2.5 mg 11/05/17 22:37 11/05/17 22:40 Proventil Neb (0.083%) AEROSOL 11/05/17 22:38 2.5 mg O ONE Administration Albuterol Sulfate 2.5 mg 11/06/17 01:39 Proventil Neb (0.083%) AEROSOL RTQID PRN Amiodarone HCl 200 mg 11/06/17 13:00 11/10/17 09:51 Pacerone PO 200 mg DAILY [facility] Administration Apixaban 5 mg 11/09/17 09:00 11/12/17 08:39 Eliquis PO 5 mg BID [facility] Administration Aspirin 81 mg 11/06/17 09:00 11/10/17 09:52 Ecotrin PO 81 mg DAILY [facility] Administration Atenolol 50 mg 11/06/17 09:00 11/07/17 08:29 Tenormin PO 50 mg DAILY [facility] Administration Atorvastatin Calcium 20 mg 11/06/17 21:00 11/11/17 20:10 Lipitor PO 20 mg HS [facility] Administration Atropine Sulfate 0.5 mg 11/07/17 15:40 Atropine IVP Q5M PRN Bradycardia Bisacodyl 5 - 10 mg 11/07/17 15:40 Dulcolax PO DAILY PRN Constipation Bisacodyl 10 mg 11/07/17 15:40 Dulcolax RECTALLY DAILY PRN Constipation Calcium Carbonate 600 mg 11/06/17 09:00 11/12/17 08:39 Caltrate PO 600 mg DAILY [facility] Administration Carvedilol 3.125 mg 11/07/17 17:30 11/09/17 09:32 Coreg PO Not Given BIDWM [facility] Clopidogrel Bisulfate 75 mg 11/06/17 01:30 11/08/17 08:52 Plavix PO 75 mg DAILY [facility] Administration Cyclobenzaprine HCl 5 mg 11/09/17 14:37 11/09/17 21:57 Flexeril PO 5 mg TID PRN Administration Muscle spasm Device 1 each 11/05/17 22:19 11/05/17 22:22 Optichamber 11/05/17 22:20 1 each O ONE Administration Dexamethasone 8 mg 11/05/17 22:18 11/05/17 22:25 Decadron IVP 11/05/17 22:19 8 mg O ONE Administration Enoxaparin Sodium 40 mg 11/06/17 09:00 11/06/17 10:05 Lovenox SQ 40 mg DAILY [facility] Administration Enoxaparin Sodium 40 mg 11/08/17 09:00 11/08/17 08:59 Lovenox SQ 40 mg DAILY [facility] Administration Flecainide Acetate 100 mg 11/06/17 09:00 11/06/17 03:37 Tambocor PO 100 mg BID [facility] Administration Furosemide 40 mg 11/07/17 16:00 11/10/17 05:40 Lasix 40 Mg/4 Ml IVP 40 mg Q12H [facility] Administration Furosemide 40 mg 11/10/17 17:00 11/11/17 09:22 Lasix 40 Mg Tab PO 40 mg 0900,1700 [facility] Administration Furosemide 40 mg 11/12/17 09:00 11/12/17 08:49 Lasix 40 Mg Tab PO 40 mg DAILY [facility] Administration Heparin Sodium (Beef Lung) 3,700 unit 11/06/17 13:00 11/06/17 13:26 Heparin Bolus 60 unit/kg (3700 unit) 11/06/17 13:01 3,700 unit IV Administration O ONE Heparin Sodium (Porcine) 1 each 11/06/17 11:08 Pharmacy Consult - Heparin 11/06/17 11:09 ONE TIME ONE Magnesium Sulfate/Dextrose 1 gm in 100 mls @ 100 mls/hr 11/06/17 04:00 06:22 Mag Sulf 1gm Premix IV 11/06/17 05:59 Infused Q1H [facility] Infusion Amiodarone HCl 450 mg/ Sodium 250 mls @ 33.33 mls/hr 11/06/17 05:30 11/06/17 13:00 Chloride IV 11/06/17 11:30 Infused .Q7H31M [facility] Infusion 1 MG/MIN Amiodarone HCl 150 mg/ Sodium 103 mls @ 618 mls/hr 11/06/17 04:51 11/06/17 05 :16 Chloride IV 11/06/17 05:00 Infused O ONE Infusion Amiodarone HCl 900 mg/ Sodium 500 mls @ 16.66 mls/hr 11/06/17 11:30 11/06/17 14:22 Chloride IV Infused .Q24H [facility] Infusion 0.5 MG/MIN Magnesium Sulfate/Dextrose 1 gm in 100 mls @ 100 mls/hr 11/06/17 11:00 14:23 Mag Sulf 1gm Premix IV 11/06/17 12:59 100 mls/hr Q1H [facility] Administration Heparin Sodium (Porcine) 20,000 unit in 500 mls @ 18 mls/hr 11/06/17 13:00 15:42 Heparin Drip IV Infused .Q24H [facility] Titration Protocol Lidocaine HCl 10 mg/ Potassium 100 mls @ 100 mls/hr 11/07/17 09:15 11/07/17 16:42 Chloride 10 meq/ Sodium IV 11/07/17 13:28 Infused Chloride .Q1H [facility] Infusion Magnesium Sulfate/Dextrose 1 gm in 100 mls @ 100 mls/hr 11/08/17 06:15 09:05 Mag Sulf 1gm Premix IV 11/08/17 08:14 Infused Q1H [facility] Infusion Sodium Chloride 1,000 mls @ 125 mls/hr 11/08/17 21:45 11/10/17 19:48 Normal Saline IV Infused .Q8H [facility] Infusion Amiodarone HCl 150 mg/ Sodium 103 mls @ 618 mls/hr 11/09/17 09:28 11/09/17 10 :26 Chloride IV 11/09/17 09:37 Infused O ONE Infusion Magnesium Sulfate/Dextrose 1 gm in 100 mls @ 100 mls/hr 11/10/17 13:40 15:08 Mag Sulf 1gm Premix IV 11/10/17 14:39 Infused O ONE Infusion Magnesium Sulfate/Dextrose 1 gm in 100 mls @ 100 mls/hr 11/10/17 14:45 19:38 Mag Sulf 1gm Premix IV 11/10/17 16:44 Infused Q1H [facility] Infusion Magnesium Sulfate/Dextrose 1 gm in 100 mls @ 100 mls/hr 11/10/17 16:30 16:59 Mag Sulf 1gm Premix IV 11/10/17 18:29 Not Given Q1H [facility] Ibuprofen 200 mg 11/09/17 10:33 11/09/17 11:14 Motrin PO 11/09/17 10:34 200 mg O ONE Administration Labetalol HCl 20 mg 11/06/17 01:08 11/06/17 04:18 Trandate IVP 20 mg Q10M PRN Administration Hypertension Levothyroxine Sodium 25 mcg 11/06/17 06:30 11/07/17 08:29 Synthroid PO 25 mcg ACB [facility] Administration Lisinopril 10 mg 11/06/17 09:00 Prinivil PO DAILY [facility] Lorazepam 0.5 - 1 mg 11/07/17 15:40 Ativan PO Q4H PRN Anxiety Lorazepam 0.5 - 1 mg 11/07/17 15:40 Ativan Inj IVP Q4H PRN Anxiety Magnesium Hydroxide 30 ml 11/07/17 15:40 Mom PO DAILY PRN Constipation Magnesium Oxide 400 mg 11/08/17 21:00 11/10/17 09:52 Magox PO 400 mg BID [facility] Administration Magnesium Oxide 800 mg 11/10/17 21:00 11/12/17 08:39 Magox PO 800 mg BID [facility] Administration Metoclopramide HCl 5 mg 11/06/17 10:55 Reglan IVP Q6H PRN Metoclopramide HCl 5 - 10 mg 11/07/17 15:40 Reglan IVP Q6H PRN Nausea &/or vomiting Metoprolol Succinate 25 mg 11/09/17 17:00 11/11/17 09:22 Toprol Xl PO 11/11/17 09:00 25 mg DAILY [facility] Administration Metoprolol Succinate 50 mg 11/11/17 09:00 11/11/17 09:21 Toprol Xl PO 50 mg DAILY [facility] Administration Metoprolol Succinate 25 mg 11/10/17 15:00 11/10/17 15:19 Toprol Xl PO 11/10/17 15:01 25 mg O ONE Administration Metoprolol Succinate 75 mg 11/11/17 09:30 11/12/17 08:49 Toprol Xl PO 75 mg DAILY [facility] Administration Metoprolol Tartrate 5 mg 11/05/17 22:00 11/05/17 23:05 Lopressor IVP 5 mg Q2MIN [facility] Administration Morphine Sulfate 2 - 4 mg 11/06/17 09:07 11/06/17 13:19 Morphine Sulfate Inj IVP 2 mg Q1H PRN Administration Pain Morphine Sulfate 2 - 4 mg 11/07/17 15:40 Morphine Sulfate Inj IVP 11/08/17 15:39 Q2H PRN Pain Morphine Sulfate 2 - 4 mg 11/07/17 15:40 Morphine Sulfate Inj IVP Q5M PRN Angina Nitroglycerin 0.4 mg 11/07/17 15:40 Nitrostat SL Q5M PRN Angina Omeprazole 20 mg 11/11/17 06:30 11/12/17 05:58 Prilosec PO 20 mg ACB [facility] Administration Ondansetron HCl 4 mg 11/06/17 10:57 11/06/17 11:38 Zofran IVP 11/06/17 10:58 4 mg O ONE Administration Ondansetron HCl 4 mg 11/07/17 15:40 11/08/17 19:13 Zofran IVP 4 mg Q6H PRN Administration Nausea &/or vomiting Pantoprazole Sodium 40 mg 11/06/17 09:00 11/07/17 08:28 Protonix Iv IVP 40 mg DAILY [facility] Administration Pantoprazole Sodium 40 mg 11/08/17 06:30 11/10/17 06:12 Protonix Tab PO 40 mg ACB [facility] Administration Pharmacy Consult 1 each 11/06/17 01:48 Pharmacy Consult - Fall Risk 11/06/17 01:49 ONE TIME ONE Pharmacy Consult 1 each 11/09/17 23:51 Pharmacy Consult - Fall Risk 11/09/17 23:52 ONE TIME ONE Potassium Chloride 20 meq 11/07/17 17:30 11/11/17 08:31 K-Dur 20 Meq Tablet PO Not Given BIDWM [facility] Potassium Chloride 10 meq 11/11/17 08:15 11/11/17 09:21 K-Dur 10 Meq Tablet PO 10 meq BIDWM [facility] Administration Potassium Chloride 10 meq 11/12/17 08:00 11/12/17 08:49 K-Dur 10 Meq Tablet PO 10 meq WB [facility] Administration Promethazine HCl 12.5 - 25 mg 11/07/17 15:40 Phenergan Inj IVP Q6HR PRN Nausea &/or vomiting Sacubitril/Valsartan 1 tab 11/07/17 21:00 11/12/17 08:46 Entresto 24/26mg PO Not Given BID [facility] Sodium Chloride 10 - 80 ml 11/05/17 21:39 11/07/17 16:33 Iv Flush IVF 10 ml PRN PRN Administration Flushing Sodium Chloride 500 ml 11/09/17 09:25 11/09/17 09:33 Normal Saline IV 11/09/17 09:26 Not Given O ONE Results 11/11/17 05:25 11/12/17 04:28 Assessment and Plan - Assessment and Plan (1) HTN (hypertension) Status: Chronic (2) Ventricular tachyarrhythmia Status: Acute (3) Presence of cardiac pacemaker Problem details: Easy Ice Status: Chronic (4) Paroxysmal atrial fibrillation Status: Chronic (5) Mixed hyperlipidemia Status: Chronic (6) Cardiomyopathy Problem details: Non ischemic Status: Acute - Attestation Attestation Narrative: 11/19/17 12:51 Recommendation After examining the patient I agree with the above assessment. I am involved in the formulation of the patient's plan of care. Hospital Course Summary Disclaimer: The visit summary below is not to be considered part of the above Progress Note.
[2017-11-09] MEDS: ATORVASTATIN 20 MG TABLET PO SCH (20:25)
[2017-11-09] MEDS ORDERED: FALL RISK - PHARMACY CONSULT MC ONE (23:51)
[2017-11-10] MEDS: NS 1,000 ML IV SCH ×4 (02:25→13:55)
[2017-11-10] MEDS: FUROSEMIDE 40 MG/4 ML INJECTION IVP SCH (05:40)
[2017-11-10] MEDS: PANTOPRAZOLE 40 MG TABLET PO SCH (06:12)
[2017-11-10] MEDS: CALCIUM CARBONATE 600 MG TABLET PO SCH (09:51)
[2017-11-10] MEDS: AMIODARONE 200 MG TABLET PO SCH (09:51)
[2017-11-10] MEDS: SACUBITRIL/VALSARTAN 24/26mg TABLET PO SCH ×2 (09:51→20:10)
[2017-11-10] MEDS: MAGNESIUM OXIDE 400 MG TABLET PO SCH ×2 (09:52→20:10)
[2017-11-10] MEDS: ASPIRIN *EC* 81 MG TABLET PO SCH (09:52)
[2017-11-10] MEDS: APIXABAN 5 MG TABLET PO SCH ×2 (09:52→20:10)
[2017-11-10] MEDS ORDERED: MAGNESIUM SULFATE 1gm PREMIX 1 GM/100 ML BAG IV ONE (13:40)
--- NOTE | 2017-11-10 14:43 | Cardiology Progress Note ---
<Dee Valladares - Last Filed: 11/11/17 09:21> Subjective Principal diagnosis: VTach, A-fib, and ASHF Interval history: Kisha is seen in follow up for Atrial fibrillation, NSVT and Acute systolic HF. She is sitting up in the chair, her brother is at the bedside. Exam Vital signs: Temperature 97.7 F 11/10/17 12:09 Pulse Rate 110 H 11/10/17 12:09 Respiratory Rate 18 11/10/17 12:09 Blood Pressure 123/66 11/10/17 12:09 Pulse Oximetry 98 11/10/17 12:09 Inpatient Medications: Generic Name Dose Route Start Last Admin Trade Name Freq PRN Reason Stop Dose Admin Acetaminophen 325 - 650 mg 11/07/17 15:40 11/09/17 08:10 Tylenol PO 650 mg Q5H PRN Administration Pain Hydrocodone Bitart/Acetaminophen 1 - 2 tab 11/07/17 15:40 [place] 5/325 PO Q5H PRN Pain Hydrocodone Bitart/Acetaminophen 1 tab 11/07/17 19:35 [place] 5/325 PO Q6H PRN Pain Al Hydroxide/Mg Hydroxide 30 ml 11/07/17 15:40 Maalox Plus PO Q3H PRN Indigestion Albuterol Sulfate 2.5 mg 11/06/17 01:39 Proventil Neb (0.083%) AEROSOL RTQID PRN Amiodarone HCl 200 mg 11/06/17 13:00 11/10/17 09:51 Pacerone PO 200 mg DAILY HERMELINDO Administration Apixaban 5 mg 11/09/17 09:00 11/10/17 09:52 Eliquis PO 5 mg BID HERMELINDO Administration Aspirin 81 mg 11/06/17 09:00 11/10/17 09:52 Ecotrin PO 81 mg DAILY HERMELINDO Administration Atorvastatin Calcium 20 mg 11/06/17 21:00 11/09/17 20:25 Lipitor PO 20 mg HS HERMELINDO Administration Atropine Sulfate 0.5 mg 11/07/17 15:40 Atropine IVP Q5M PRN Bradycardia Bisacodyl 5 - 10 mg 11/07/17 15:40 Dulcolax PO DAILY PRN Constipation Bisacodyl 10 mg 11/07/17 15:40 Dulcolax RECTALLY DAILY PRN Constipation Calcium Carbonate 600 mg 11/06/17 09:00 11/10/17 09:51 Caltrate PO 600 mg DAILY HERMELINDO Administration Cyclobenzaprine HCl 5 mg 11/09/17 14:37 11/09/17 21:57 Flexeril PO 5 mg TID PRN Administration Muscle spasm Furosemide 40 mg 11/07/17 16:00 11/10/17 05:40 Lasix 40 Mg/4 Ml IVP 40 mg Q12H HERMELINDO Administration Sodium Chloride 1,000 mls @ 125 mls/hr 11/08/17 21:45 11/10/17 13:55 Normal Saline IV Not Given .Q8H HERMELINDO Lorazepam 0.5 - 1 mg 11/07/17 15:40 Ativan PO Q4H PRN Anxiety Lorazepam 0.5 - 1 mg 11/07/17 15:40 Ativan Inj IVP Q4H PRN Anxiety Magnesium Hydroxide 30 ml 11/07/17 15:40 Mom PO DAILY PRN Constipation Magnesium Oxide 400 mg 11/08/17 21:00 11/10/17 09:52 Magox PO 400 mg BID HERMELNIDO Administration Metoclopramide HCl 5 mg 11/06/17 10:55 Reglan IVP Q6H PRN Metoclopramide HCl 5 - 10 mg 11/07/17 15:40 Reglan IVP Q6H PRN Nausea &/or vomiting Metoprolol Succinate 25 mg 11/09/17 17:00 11/10/17 09:51 Toprol Xl PO 25 mg DAILY HERMELINDO Administration Morphine Sulfate 2 - 4 mg 11/06/17 09:07 11/06/17 13:19 Morphine Sulfate Inj IVP 2 mg Q1H PRN Administration Pain Morphine Sulfate 2 - 4 mg 11/07/17 15:40 Morphine Sulfate Inj IVP Q5M PRN Angina Nitroglycerin 0.4 mg 11/07/17 15:40 Nitrostat SL Q5M PRN Angina Ondansetron HCl 4 mg 11/07/17 15:40 11/08/17 19:13 Zofran IVP 4 mg Q6H PRN Administration Nausea &/or vomiting Pantoprazole Sodium 40 mg 11/08/17 06:30 11/10/17 06:12 Protonix Tab PO 40 mg ACB HERMELINDO Administration Potassium Chloride 20 meq 11/07/17 17:30 11/10/17 09:51 K-Dur 20 Meq Tablet PO 20 meq BIDWM HERMELINDO Administration Promethazine HCl 12.5 - 25 mg 11/07/17 15:40 Phenergan Inj IVP Q6HR PRN Nausea &/or vomiting Sacubitril/Valsartan 1 tab 11/07/17 21:00 11/10/17 09:51 Entresto 24/26mg PO 1 tab BID HERMELINDO Administration Sodium Chloride 10 - 80 ml 11/05/17 21:39 11/07/17 16:33 Iv Flush IVF 10 ml PRN PRN Administration Flushing Discontinued Medications Generic Name Dose Route Start Last Admin Trade Name Freq PRN Reason Stop Dose Admin Acetaminophen 650 mg 11/06/17 01:08 11/06/17 01:23 Tylenol PO 650 mg Q6H PRN Administration Fever Hydrocodone Bitart/Acetaminophen 1 tab 11/06/17 01:39 11/06/17 03:27 [place] 5/325 PO 1 tab Q4H PRN Administration Pain Albuterol Sulfate 8 puff 11/05/17 22:18 11/05/17 22:22 Ventolin Hfa ORAL INH 11/05/17 22:19 2 puff O ONE Administration Albuterol Sulfate 2.5 mg 11/05/17 22:37 11/05/17 22:40 Proventil Neb (0.083%) AEROSOL 11/05/17 22:38 2.5 mg O ONE Administration Atenolol 50 mg 11/06/17 09:00 11/07/17 08:29 Tenormin PO 50 mg DAILY [facility] Administration Carvedilol 3.125 mg 11/07/17 17:30 11/09/17 09:32 Coreg PO Not Given BIDWM [facility] Clopidogrel Bisulfate 75 mg 11/06/17 01:30 11/08/17 08:52 Plavix PO 75 mg DAILY [facility] Administration Device 1 each 11/05/17 22:19 11/05/17 22:22 Optichamber MC 11/05/17 22:20 1 each O ONE Administration Dexamethasone 8 mg 11/05/17 22:18 11/05/17 22:25 Decadron IVP 11/05/17 22:19 8 mg O ONE Administration Enoxaparin Sodium 40 mg 11/06/17 09:00 11/06/17 10:05 Lovenox SQ 40 mg DAILY [facility] Administration Enoxaparin Sodium 40 mg 11/08/17 09:00 11/08/17 08:59 Lovenox SQ 40 mg DAILY HERMELINDO Administration Flecainide Acetate 100 mg 11/06/17 09:00 11/06/17 03:37 Tambocor PO 100 mg BID HERMELINDO Administration Heparin Sodium (Beef Lung) 3,700 unit 11/06/17 13:00 11/06/17 13:26 Heparin Bolus 60 unit/kg (3700 unit) 11/06/17 13:01 3,700 unit IV Administration O ONE Heparin Sodium (Porcine) 1 each 11/06/17 11:08 Pharmacy Consult - Heparin 11/06/17 11:09 ONE TIME ONE Magnesium Sulfate/Dextrose 1 gm in 100 mls @ 100 mls/hr 11/06/17 04:00 06:22 Mag Sulf 1gm Premix IV 11/06/17 05:59 Infused Q1H HERMELINDO Infusion Amiodarone HCl 450 mg/ Sodium 250 mls @ 33.33 mls/hr 11/06/17 05:30 11/06/17 13:00 Chloride IV 11/06/17 11:30 Infused .Q7H31M HERMELINDO Infusion 1 MG/MIN Amiodarone HCl 150 mg/ Sodium 103 mls @ 618 mls/hr 11/06/17 04:51 11/06/17 05 :16 Chloride IV 11/06/17 05:00 Infused O ONE Infusion Amiodarone HCl 900 mg/ Sodium 500 mls @ 16.66 mls/hr 11/06/17 11:30 11/06/17 14:22 Chloride IV Infused .Q24H HERMELINDO Infusion 0.5 MG/MIN Magnesium Sulfate/Dextrose 1 gm in 100 mls @ 100 mls/hr 11/06/17 11:00 14:23 Mag Sulf 1gm Premix IV 11/06/17 12:59 100 mls/hr Q1H HERMELINDO Administration Heparin Sodium (Porcine) 20,000 unit in 500 mls @ 18 mls/hr 11/06/17 13:00 15:42 Heparin Drip IV Infused .Q24H HERMELINDO Titration Protocol Lidocaine HCl 10 mg/ Potassium 100 mls @ 100 mls/hr 11/07/17 09:15 11/07/17 16:42 Chloride 10 meq/ Sodium IV 11/07/17 13:28 Infused Chloride .Q1H HERMELINDO Infusion Magnesium Sulfate/Dextrose 1 gm in 100 mls @ 100 mls/hr 11/08/17 06:15 09:05 Mag Sulf 1gm Premix IV 11/08/17 08:14 Infused Q1H HERMELINDO Infusion Amiodarone HCl 150 mg/ Sodium 103 mls @ 618 mls/hr 11/09/17 09:28 11/09/17 10 :26 Chloride IV 11/09/17 09:37 Infused O ONE Infusion Magnesium Sulfate/Dextrose 1 gm in 100 mls @ 100 mls/hr 11/10/17 13:40 14:08 Mag Sulf 1gm Premix IV 11/10/17 14:39 100 mls/hr O ONE Administration Ibuprofen 200 mg 11/09/17 10:33 11/09/17 11:14 Motrin PO 11/09/17 10:34 200 mg O ONE Administration Labetalol HCl 20 mg 11/06/17 01:08 11/06/17 04:18 Trandate IVP 20 mg Q10M PRN Administration Hypertension Levothyroxine Sodium 25 mcg 11/06/17 06:30 11/07/17 08:29 Synthroid PO 25 mcg ACB HERMELINDO Administration Lisinopril 10 mg 11/06/17 09:00 Prinivil PO DAILY HERMELINDO Metoprolol Tartrate 5 mg 11/05/17 22:00 11/05/17 23:05 Lopressor IVP 5 mg Q2MIN HERMELINDO Administration Morphine Sulfate 2 - 4 mg 11/07/17 15:40 Morphine Sulfate Inj IVP 11/08/17 15:39 Q2H PRN Pain Ondansetron HCl 4 mg 11/06/17 10:57 11/06/17 11:38 Zofran IVP 11/06/17 10:58 4 mg O ONE Administration Pantoprazole Sodium 40 mg 11/06/17 09:00 11/07/17 08:28 Protonix Iv IVP 40 mg DAILY HERMELINDO Administration Pharmacy Consult 1 each 11/06/17 01:48 Pharmacy Consult - Fall Risk 11/06/17 01:49 ONE TIME ONE Pharmacy Consult 1 each 11/09/17 23:51 Pharmacy Consult - Fall Risk 11/09/17 23:52 ONE TIME ONE Sodium Chloride 500 ml 11/09/17 09:25 11/09/17 09:33 Normal Saline IV 11/09/17 09:26 Not Given O ONE - Constitutional no acute distress, well nourished, cooperative - Routine HEENT Exam Head: Present: normocephalic ENT: Present: mucous membranes moist - Routine Neck Exam Absent: JVD, carotid bruit - Routine Chest/Breast/Axilla Exam Chest wall: Absent: tenderness - Routine Respiratory Exam Present: CTA bilaterally. Absent: dyspnea, rales, wheezes - Routine Cardiovascular Exam Present: no murmur, irregularly irregular - Routine Abdominal Exam Present: soft, non tender - Routine Extremities Exam Present: no edema, pulses intact - Routine Skin Exam Present: intact, dry, warm - Routine Neurological Exam Present: alert - Routine Psychiatric Exam Present: normal affect Results 11/11/17 05:25 11/11/17 05:25 Comprehensive Metabolic Panel 11/10/17 Range/Units 11:12 Sodium 142 (136-146) MEQ/L Potassium 5.0 (3.6-5) MEQ/L Chloride 106 (98-107) MEQ/L Carbon Dioxide 27 (22-30) MEQ/L BUN 18.0 H (7-17) MG/DL Creatinine 0.9 D (0.7-1.2) mg/dL Glucose 109 (65-110) MG/DL Calcium 8.3 L (8.4-10.2) MG/DL Albumin 4.2 (3.5-5.0) g/dL Intake and Output 11/09/17 11/10/17 11/10/17 22:59 06:59 14:59 Intake Total 910.417 / 877.756 4735 / 1225 1240 / 1240 Output Total 1400 / 1400 1475 / 1475 550 / 550 Balance -489.583 / -489.583 -250 / -250 690 / 690 Intake: IV 910.417 / 840.329 3510 / 1000 1000 / 1000 Ns 1,000 ml @ 125 mls/hr IV . 910.417 / 127.900 8937 / 1000 1000 / 1000 Q8H [facility] Rx#:[id number] Oral 225 / 225 240 / 240 Output: Urine 1200 / 1200 1475 / 1475 550 / 550 Stool 200 / 200 Other: Urine Appearance Clear Clear Clear Urine Color Yellow Pale Yellow Urine Odor Normal Normal Stool Color Brown Brown Yellow Green Stool Consistency Watery Soft Formed Size of Bowel Movement Small Moderate # Voids 1 # Bowel Movements 1 1 Weight 132 lb 4.438 oz Patient Weight 11/11/17 06:59 Weight 132 lb 4.438 oz Assessment and Plan - Assessment and Plan (1) HTN (hypertension) Status: Chronic (2) Ventricular tachyarrhythmia Status: Acute (3) Presence of cardiac pacemaker Problem details: [employer] Status: Chronic (4) Paroxysmal atrial fibrillation Status: Chronic (5) Mixed hyperlipidemia Status: Chronic (6) Cardiomyopathy Problem details: Non ischemic Status: Acute - Assessment and Plan 11/06/17 Ventricular tachyarrhythmia Current visit: Yes Status: Acute - Mag 1.5, replace with 2gm per IV - Plan LHC tomorrow due to ventricular arrhythmia. - NPO except meds after MN - Continue to monitor telemetry Presence of cardiac pacemaker Problem details: [employer] Current visit: Yes Status: Chronic - interrogate please Paroxysmal atrial fibrillation Current visit: Yes Status: Chronic - Previously on Flecainide 100mg BID and Aspirin 325mg daily - Takes Atenolol 25mg daily for rate control. - Amiodarone 200mg daily for AAT Mixed hyperlipidemia Current visit: Yes Status: Chronic - Takes Atorvastatin 20mg daily HTN (hypertension) Current visit: Yes Status: Chronic - Continue Atenolol and Lisinopril Thank you for allowing us to participate in the care of this patient. 11/07/17 Dilated, Acute, cardiomyopathy - EF 30-35% - LifeVest - Coreg and Entresto Change Atenolol to Coreg due to reduced EF of 30-35% - DC Lisinopril. Entresto 24/26mg 36 hours after last dose of Lisinopril - Lasix 40mg BID with KCL 20meq BID - Monitor renal and electrolytes 11/09/2017 Dilated, Acute, cardiomyopathy - EF 30-35% - 11/07/2017 HC: no CAD. - Entresto 24/26 with parameters to hold if SBP < 120. When Entresto was started her SBP dropped from 140 to 75 (standing). - Held Entresto and Coreg this am due to hypotension. - Stop Coreg and start metoprolol succ due to A-fib and thyroid issues. - Lasix 40mg BID with KCL 20meq BID - on 11/08 and 11/09 U/O > 2000 with bal (- 2000) on 11/08. - now too dry and giving IVF. - Monitor I/O, Wts, renal and electrolytes - Life Vest ordered - fit on Friday per RN. Syncopal episode / hypotension on 11/08 - no arrhythmias, SBP 70's, Wt down 4 kg, Cr, BUN, Hbg, slightly up. may be too dry. - lungs clear, no edema, no orthopnea - can tolerate IVF. - IVF 500ml bolus this am and IVF at 125ml/hr. - 11/08 CT head not acute. - 11/06 carotid doppler: no sigificant stenosis. A-fib w RVR - wnet into A-fib 11/09 am and convert back to SR this am. - cont amiodarone 200mg po daily - gave amiodarone 125mg IV bolus. - treated headache and resolved. - K+ and Mag wnl. TSH low and FT4 high Hypothyroid - TSH 0.03 (low) and FT4 2.34 (high) - levothyroxine was increased prior to hospitalization due to low thyroid. Now high and - Levothyroxine stopped, Dr. Bond plans recheck and restart in future. - maybe contributing to A-fib - we stopped atenolol and started Coreg for SHF. May need BB for HR. - stop Coreg and start metoprolol succinate 25mg daily. PPM in situ TIA Disposition - Dr. Bond plans ABIOLA eval. - PT states her brother lives with her and takes care of yard work. - Daughter from [place] due to arrive on 11/10/17 Patient remains underlying atrial flutter when not pacing. - Stop Amiodarone - Increase Metoprolol Succinate to 75mg daily for better rate control - She needs to stay on Metoprolol Succinate or Carvedilol to improve EF ( metoprolol tartrate is not effective) - Awaiting payer for [employer] - Mag 1.2 has received 1 gm, give additional 2 gm IV today - Change IV Lasix to 40mg po BID - Monitor renal and electrolytes Hospital Course Summary Disclaimer: The visit summary below is not to be considered part of the above Progress Note. Hospital Course: 11/06/17 Patient admitted to ICU with combined acute stroke, arrhythmias, hyperthyroidism , and hypomagnesemia. Will require CT imaging of the head with contrast/CTA when arrhythmias stabilize and permit. Continue aspirin at present. Speech therapy evaluation in conjunction with PT/ OT. Discontinue levofloxacin, may require endocrine evaluation. Will need initiation of beta ritu. Avoid hypotension or excessive lowering of blood pressure due to acute stroke. Echocardiogram pending, carotid Dopplers obtained-negative for occlusive disease. Cardiology consultation for assistance with arrhythmias. Continue magnesium replacement, repeat electrolytes pending at this time of this dictation. Patient is critically ill-time in 1050, Timeout 1146. Discussed with patient's daughter/DPOA. Discussed with nursing, discussed with cardiology. 11/07/17 Expressive aphasia has resolved, no other neurological deficits present. Imaging to date has not revealed acute stroke and unable to obtain MRI. Clinical course consistent with stroke. Converted from atrial fibrillation back to sinus rhythm (with occasional paced rhythm) on amiodarone. Cardiac catheterization today without evidence of significant coronary disease- formal report pending. Echocardiogram with ejection fraction 30-35%, global hypokinesis, and LVH. No significant valvular disease but PAP 50. Cardiology has initiated Entresto, carvedilol, and plans LifeVest with respect to cardiomyopathy. Lisinopril and atenolol discontinued in light of above changes. Discussed longer-term anticoagulation with cardiology-given paroxysmal atrial fibrillation and evidence of cardioembolic event believe anticoagulation should be considered. Potassium replaced IV this morning; magnesium relatively stable. Levothyroxine discontinued for now; free T4 excessively elevated, TSH depressed following dose increase in September from 75 to 100 g after outpatient labs revealed TSH 5.12 and free T4 1.3 Transfer to medical unit. 11/08/17 Patient remains in sinus rhythm. She is hemodynamically stable. Continue Entresto, carvedilol and LifeVest per cardiology. Magnesium down to 1.3, and IV replacement has been ordered. Potassium has been corrected to 3.8. Levothyroxine has been discontinued. White count is stable, hemoglobin 15.1. Platelets have increased to 428. Will reassess in the morning along with BMP and magnesium level. Syncope until earlier this evening, repeat CT head unremarkable. Creatinine, hemoglobin, and fluid balance in conjunction with weight loss suggest dehydration. Mildly orthostatic; replace volume overnight. No arrhythmias were telemetry at time of syncopal event and patient was up to the bathroom one episode occurred. EKG pending, troponin slightly increased-recheck in a.m. No significant coronary disease by cardiac catheterization yesterday. <JaeAndrez - Last Filed: 11/19/17 12:56> Exam Vital signs: Temperature 97.5 F 11/12/17 12:25 Pulse Rate 83 11/12/17 12:25 Respiratory Rate 14 11/12/17 12:25 Blood Pressure 102/52 11/12/17 12:25 Pulse Oximetry 98 11/12/17 12:25 Inpatient Medications: Discontinued Medications Generic Name Dose Route Start Last Admin Trade Name Freq PRN Reason Stop Dose Admin Acetaminophen 650 mg 11/06/17 01:08 11/06/17 01:23 Tylenol PO 650 mg Q6H PRN Administration Fever Acetaminophen 325 - 650 mg 11/07/17 15:40 11/12/17 12:48 Tylenol PO 650 mg Q5H PRN Administration Pain Hydrocodone Bitart/Acetaminophen 1 tab 11/06/17 01:39 11/06/17 03:27 [place] 5/325 PO 1 tab Q4H PRN Administration Pain Hydrocodone Bitart/Acetaminophen 1 - 2 tab 11/07/17 15:40 [place] 5/325 PO Q5H PRN Pain Hydrocodone Bitart/Acetaminophen 1 tab 11/07/17 19:35 [place] 5/325 PO Q6H PRN Pain Al Hydroxide/Mg Hydroxide 30 ml 11/07/17 15:40 Maalox Plus PO Q3H PRN Indigestion Albuterol Sulfate 8 puff 11/05/17 22:18 11/05/17 22:22 Ventolin Hfa ORAL INH 11/05/17 22:19 2 puff O ONE Administration Albuterol Sulfate 2.5 mg 11/05/17 22:37 11/05/17 22:40 Proventil Neb (0.083%) AEROSOL 11/05/17 22:38 2.5 mg O ONE Administration Albuterol Sulfate 2.5 mg 11/06/17 01:39 Proventil Neb (0.083%) AEROSOL RTQID PRN Amiodarone HCl 200 mg 11/06/17 13:00 11/10/17 09:51 Pacerone PO 200 mg DAILY HERMELINDO Administration Apixaban 5 mg 11/09/17 09:00 11/12/17 08:39 Eliquis PO 5 mg BID HERMELINDO Administration Aspirin 81 mg 11/06/17 09:00 11/10/17 09:52 Ecotrin PO 81 mg DAILY HERMELINDO Administration Atenolol 50 mg 11/06/17 09:00 11/07/17 08:29 Tenormin PO 50 mg DAILY HERMELINDO Administration Atorvastatin Calcium 20 mg 11/06/17 21:00 11/11/17 20:10 Lipitor PO 20 mg HS HERMELINDO Administration Atropine Sulfate 0.5 mg 11/07/17 15:40 Atropine IVP Q5M PRN Bradycardia Bisacodyl 5 - 10 mg 11/07/17 15:40 Dulcolax PO DAILY PRN Constipation Bisacodyl 10 mg 11/07/17 15:40 Dulcolax RECTALLY DAILY PRN Constipation Calcium Carbonate 600 mg 11/06/17 09:00 11/12/17 08:39 Caltrate PO 600 mg DAILY HERMELINDO Administration Carvedilol 3.125 mg 11/07/17 17:30 11/09/17 09:32 Coreg PO Not Given BIDWM [facility] Clopidogrel Bisulfate 75 mg 11/06/17 01:30 11/08/17 08:52 Plavix PO 75 mg DAILY HERMELINDO Administration Cyclobenzaprine HCl 5 mg 11/09/17 14:37 11/09/17 21:57 Flexeril PO 5 mg TID PRN Administration Muscle spasm Device 1 each 11/05/17 22:19 11/05/17 22:22 Optichamber MC 11/05/17 22:20 1 each O ONE Administration Dexamethasone 8 mg 11/05/17 22:18 11/05/17 22:25 Decadron IVP 11/05/17 22:19 8 mg O ONE Administration Enoxaparin Sodium 40 mg 11/06/17 09:00 11/06/17 10:05 Lovenox SQ 40 mg DAILY HERMELINDO Administration Enoxaparin Sodium 40 mg 11/08/17 09:00 11/08/17 08:59 Lovenox SQ 40 mg DAILY HERMELINDO Administration Flecainide Acetate 100 mg 11/06/17 09:00 11/06/17 03:37 Tambocor PO 100 mg BID HERMELINDO Administration Furosemide 40 mg 11/07/17 16:00 11/10/17 05:40 Lasix 40 Mg/4 Ml IVP 40 mg Q12H HERMELINDO Administration Furosemide 40 mg 11/10/17 17:00 11/11/17 09:22 Lasix 40 Mg Tab PO 40 mg 0900,1700 HERMELINDO Administration Furosemide 40 mg 11/12/17 09:00 11/12/17 08:49 Lasix 40 Mg Tab PO 40 mg DAILY HERMELINDO Administration Heparin Sodium (Beef Lung) 3,700 unit 11/06/17 13:00 11/06/17 13:26 Heparin Bolus 60 unit/kg (3700 unit) 11/06/17 13:01 3,700 unit IV Administration O ONE Heparin Sodium (Porcine) 1 each 11/06/17 11:08 Pharmacy Consult - Heparin 11/06/17 11:09 ONE TIME ONE Magnesium Sulfate/Dextrose 1 gm in 100 mls @ 100 mls/hr 11/06/17 04:00 06:22 Mag Sulf 1gm Premix IV 11/06/17 05:59 Infused Q1H HERMELINDO Infusion Amiodarone HCl 450 mg/ Sodium 250 mls @ 33.33 mls/hr 11/06/17 05:30 11/06/17 13:00 Chloride IV 11/06/17 11:30 Infused .Q7H31M HERMELINDO Infusion 1 MG/MIN Amiodarone HCl 150 mg/ Sodium 103 mls @ 618 mls/hr 11/06/17 04:51 11/06/17 05 :16 Chloride IV 11/06/17 05:00 Infused O ONE Infusion Amiodarone HCl 900 mg/ Sodium 500 mls @ 16.66 mls/hr 11/06/17 11:30 11/06/17 14:22 Chloride IV Infused .Q24H HERMELINDO Infusion 0.5 MG/MIN Magnesium Sulfate/Dextrose 1 gm in 100 mls @ 100 mls/hr 11/06/17 11:00 14:23 Mag Sulf 1gm Premix IV 11/06/17 12:59 100 mls/hr Q1H HERMELINDO Administration Heparin Sodium (Porcine) 20,000 unit in 500 mls @ 18 mls/hr 11/06/17 13:00 15:42 Heparin Drip IV Infused .Q24H HERMELINDO Titration Protocol Lidocaine HCl 10 mg/ Potassium 100 mls @ 100 mls/hr 11/07/17 09:15 11/07/17 16:42 Chloride 10 meq/ Sodium IV 11/07/17 13:28 Infused Chloride .Q1H HERMELINDO Infusion Magnesium Sulfate/Dextrose 1 gm in 100 mls @ 100 mls/hr 11/08/17 06:15 09:05 Mag Sulf 1gm Premix IV 11/08/17 08:14 Infused Q1H HERMELINDO Infusion Sodium Chloride 1,000 mls @ 125 mls/hr 11/08/17 21:45 11/10/17 19:48 Normal Saline IV Infused .Q8H HERMELINDO Infusion Amiodarone HCl 150 mg/ Sodium 103 mls @ 618 mls/hr 11/09/17 09:28 11/09/17 10 :26 Chloride IV 11/09/17 09:37 Infused O ONE Infusion Magnesium Sulfate/Dextrose 1 gm in 100 mls @ 100 mls/hr 11/10/17 13:40 15:08 Mag Sulf 1gm Premix IV 11/10/17 14:39 Infused O ONE Infusion Magnesium Sulfate/Dextrose 1 gm in 100 mls @ 100 mls/hr 11/10/17 14:45 19:38 Mag Sulf 1gm Premix IV 11/10/17 16:44 Infused Q1H HERMELINDO Infusion Magnesium Sulfate/Dextrose 1 gm in 100 mls @ 100 mls/hr 11/10/17 16:30 16:59 Mag Sulf 1gm Premix IV 11/10/17 18:29 Not Given Q1H HERMELINDO Ibuprofen 200 mg 11/09/17 10:33 11/09/17 11:14 Motrin PO 11/09/17 10:34 200 mg O ONE Administration Labetalol HCl 20 mg 11/06/17 01:08 11/06/17 04:18 Trandate IVP 20 mg Q10M PRN Administration Hypertension Levothyroxine Sodium 25 mcg 11/06/17 06:30 11/07/17 08:29 Synthroid PO 25 mcg ACB HERMELINDO Administration Lisinopril 10 mg 11/06/17 09:00 Prinivil PO DAILY HERMELINDO Lorazepam 0.5 - 1 mg 11/07/17 15:40 Ativan PO Q4H PRN Anxiety Lorazepam 0.5 - 1 mg 11/07/17 15:40 Ativan Inj IVP Q4H PRN Anxiety Magnesium Hydroxide 30 ml 11/07/17 15:40 Mom PO DAILY PRN Constipation Magnesium Oxide 400 mg 11/08/17 21:00 11/10/17 09:52 Magox PO 400 mg BID HERMELINDO Administration Magnesium Oxide 800 mg 11/10/17 21:00 11/12/17 08:39 Magox PO 800 mg BID HERMELINDO Administration Metoclopramide HCl 5 mg 11/06/17 10:55 Reglan IVP Q6H PRN Metoclopramide HCl 5 - 10 mg 11/07/17 15:40 Reglan IVP Q6H PRN Nausea &/or vomiting Metoprolol Succinate 25 mg 11/09/17 17:00 11/11/17 09:22 Toprol Xl PO 11/11/17 09:00 25 mg DAILY HERMELINDO Administration Metoprolol Succinate 50 mg 11/11/17 09:00 11/11/17 09:21 Toprol Xl PO 50 mg DAILY HERMELINDO Administration Metoprolol Succinate 25 mg 11/10/17 15:00 11/10/17 15:19 Toprol Xl PO 11/10/17 15:01 25 mg O ONE Administration Metoprolol Succinate 75 mg 11/11/17 09:30 11/12/17 08:49 Toprol Xl PO 75 mg DAILY HERMELINDO Administration Metoprolol Tartrate 5 mg 11/05/17 22:00 11/05/17 23:05 Lopressor IVP 5 mg Q2MIN HERMELINDO Administration Morphine Sulfate 2 - 4 mg 11/06/17 09:07 11/06/17 13:19 Morphine Sulfate Inj IVP 2 mg Q1H PRN Administration Pain Morphine Sulfate 2 - 4 mg 11/07/17 15:40 Morphine Sulfate Inj IVP 11/08/17 15:39 Q2H PRN Pain Morphine Sulfate 2 - 4 mg 11/07/17 15:40 Morphine Sulfate Inj IVP Q5M PRN Angina Nitroglycerin 0.4 mg 11/07/17 15:40 Nitrostat SL Q5M PRN Angina Omeprazole 20 mg 11/11/17 06:30 11/12/17 05:58 Prilosec PO 20 mg ACB HERMELINDO Administration Ondansetron HCl 4 mg 11/06/17 10:57 11/06/17 11:38 Zofran IVP 11/06/17 10:58 4 mg O ONE Administration Ondansetron HCl 4 mg 11/07/17 15:40 11/08/17 19:13 Zofran IVP 4 mg Q6H PRN Administration Nausea &/or vomiting Pantoprazole Sodium 40 mg 11/06/17 09:00 11/07/17 08:28 Protonix Iv IVP 40 mg DAILY HERMELINDO Administration Pantoprazole Sodium 40 mg 11/08/17 06:30 11/10/17 06:12 Protonix Tab PO 40 mg ACB HERMELINDO Administration Pharmacy Consult 1 each 11/06/17 01:48 Pharmacy Consult - Fall Risk 11/06/17 01:49 ONE TIME ONE Pharmacy Consult 1 each 11/09/17 23:51 Pharmacy Consult - Fall Risk 11/09/17 23:52 ONE TIME ONE Potassium Chloride 20 meq 11/07/17 17:30 11/11/17 08:31 K-Dur 20 Meq Tablet PO Not Given BIDWM HERMELINDO Potassium Chloride 10 meq 11/11/17 08:15 11/11/17 09:21 K-Dur 10 Meq Tablet PO 10 meq BIDWM HERMELINDO Administration Potassium Chloride 10 meq 11/12/17 08:00 11/12/17 08:49 K-Dur 10 Meq Tablet PO 10 meq WB HERMELINDO Administration Promethazine HCl 12.5 - 25 mg 11/07/17 15:40 Phenergan Inj IVP Q6HR PRN Nausea &/or vomiting Sacubitril/Valsartan 1 tab 11/07/17 21:00 11/12/17 08:46 Entresto 24/26mg PO Not Given BID HERMELINDO Sodium Chloride 10 - 80 ml 11/05/17 21:39 11/07/17 16:33 Iv Flush IVF 10 ml PRN PRN Administration Flushing Sodium Chloride 500 ml 11/09/17 09:25 11/09/17 09:33 Normal Saline IV 11/09/17 09:26 Not Given O ONE Results 11/11/17 05:25 11/12/17 04:28 Assessment and Plan - Assessment and Plan (1) HTN (hypertension) Status: Chronic (2) Ventricular tachyarrhythmia Status: Acute (3) Presence of cardiac pacemaker Problem details: [employer] Status: Chronic (4) Paroxysmal atrial fibrillation Status: Chronic (5) Mixed hyperlipidemia Status: Chronic (6) Cardiomyopathy Problem details: Non ischemic Status: Acute - Attestation Attestation Narrative: 11/19/17 12:56 Recommendation After examining the patient I agree with the above assessment. I am involved in the formulation of the patient's plan of care. Hospital Course Summary Disclaimer: The visit summary below is not to be considered part of the above Progress Note.
[2017-11-10] MEDS: MAGNESIUM SULFATE 1gm PREMIX 1 GM/100 ML BAG IV SCH ×2 (15:12→16:24)
[2017-11-10] MEDS ORDERED: MAGNESIUM SULFATE 1gm PREMIX 1 GM/100 ML BAG IV SCH (16:30)
--- NOTE | 2017-11-10 17:37 | Consultation ---
DATE OF CONSULTATION 11/10/[address] Bond CHIEF COMPLAINT Expressive aphagia. HISTORY OF PRESENT ILLNESS Patient is a 62-year-old female with history of atrial fibrillation, congestive heart failure, pacemaker placement and hypothyroidism. The patient presented to [facility] a few days ago with acute-onset expressive aphasia with difficulty finding words and mild confusion. Her symptoms have improved significantly. The patient was found to have an active a-fib problem. Her thyroid lab work was significantly abnormal. The patient had a CT angiogram and CTA of the brain that showed no acute abnormalities. Her carotid Doppler was unremarkable. The patient was started on Eliquis for her atrial fibrillation. Her thyroid medication had been managed to improve function. Her blood pressure has been in the 120/60 range. The patient had some mild balance and coordination problem which has improved since admission. She continues to have some mild balance problem. She has had no major weakness or sensory loss in the extremities. On physical examination the patient was awake, alert, oriented x 2. She continues to have some mild word- finding problem. Her speech was slow with no significant dysarthria. She had no focal weakness or numbness in her face. Her motor examination showed minimal weakness in the right compared to the left. Sensory examination was symmetrical to light touch, pinprick and temperature sensation in the extremities. Coordination for [id number] was normal bilaterally. The patient's reflexes were slightly active on the right compared to the left. Her gait and balance was borderline. ASSESSMENT Acute ischemic stroke associated with history of atrial fibrillation and hypothyroidism. The patient presented with expressive aphasia symptoms which have improved since admission. There were no signs of large vessel disease on her CT angiogram and carotid Doppler. The CT of the head showed no acute ischemic stroke which can be consistent with small vessel disease. The patient has done well overall. She was found to have severe hypothyroidism which is managed with medication. Her blood pressure has been within normal range. PLAN 1. Continue Eliquis for anticoagulation associated with atrial fibrillation and stroke. 2. Optimize treatment for hypothyroidism to improve memory loss, confusion and word-finding difficulties. 3. Consider more speech and physical therapy depending on the patient's symptoms progression. 4. Provide good fluid intake. MTDD
[2017-11-10] MEDS: FUROSEMIDE 40 MG TABLET PO SCH (18:03)
--- NOTE | 2017-11-10 18:22 | Progress Note ---
- Date 11/10/17 Subjective: Mrs. Betancourt reports that she feels fine. She continues to deny chest pain or palpitations, has no lightheadedness, or dyspnea. She reports speech is at baseline and denies focal weakness. She's had no additional episodes of hypotension and did not spontaneously complain of headache or neck pain today. Objective Vital signs: Temperature 97.6 F 11/10/17 15:51 Pulse Rate 92 11/10/17 16:00 Respiratory Rate 16 11/10/17 15:51 Blood Pressure 95/63 11/10/17 15:51 Pulse Oximetry 98 - RA 11/10/17 17:40 I/O 4008/3730 Supine blood pressure 123/66; standing 92/63 NAD, alert Conjugate gaze, sclera anicteric Respirations nonlabored, good airflow, breath sounds clear Irregular rhythm, S1-S2 Abdomen soft, nontender Moving all extremities well, repositions herself without difficulty Calm, cooperative; flighty-abruptly changes from one topic to another Height/Weight/BMI: Height 1.45 m Weight 60 kg Body Mass Index 29.3 Results - Labs CBC & Chem 7: 11/09/17 04:28 11/10/17 11:12 Labs: Magnesium 1.2, phosphorus 2.6 Assessment and Plan (1) Expressive aphasia Current visit: Yes Status: Acute Assessment and Plan: Impression: Expressive aphasia/acute ischemic stroke Paroxysmal atrial fibrillation with RVR Hypomagnesemia Hyperthyroidism due to excess levothyroxine replacement Possible ventricular arrhythmias Hypertension Metabolic encephalopathy Hyperlipidemia Hypokalemia, not POA GERD Cardiomyopathy Thrombocytosis Syncope-11/08/17 Dehydration with acute kidney injury-11/08/17 Headache/trapezius spasm Cognitive deficit Plan: Remains in atrial fibrillation-telemetry strips reviewed, rate slowly improving. Converted to metoprolol XL 25 mg/d yesterday evening due to hyperthyroidism/ cardiomyopathy. Levothyroxine remains on hold-last dose 11/07 at which time she received 25 g. Resume lower dose replace in approximately 1 week. Ongoing IV/by mouth magnesium replacement-may be problematic with diuretic use. Able to take Entresto last night and this am without drop in BP of concern. LifeVest pending. Speech therapy completed cognitive eval today revealing significant deficits in patient's ability to problem solve, recall general information, organize, and in abstract reasoning. Recent memory, time orientation and remote memory all impaired to some degree. OT completed ABIOLA with score of 7 indicating need for assistance to live in the community. Will discuss with patient's daughter. Discussed with Dr. Pedersen who felt patient still had some component of expressive aphasia and recommended ongoing speech therapy. Discontinue IV fluids. Continue Flexeril prn/heating pad for neck spasm. - Physician Narrative Narrative: Date: 11/10/17 Time: 1815 Hospital Course Summary Disclaimer: The visit summary below is not to be considered part of the above Progress Note. Hospital Course: 11/06/17 Patient admitted to ICU with combined acute stroke, arrhythmias, hyperthyroidism , and hypomagnesemia. Will require CT imaging of the head with contrast/CTA when arrhythmias stabilize and permit. Continue aspirin at present. Speech therapy evaluation in conjunction with PT/ OT. Discontinue levofloxacin, may require endocrine evaluation. Will need initiation of beta ritu. Avoid hypotension or excessive lowering of blood pressure due to acute stroke. Echocardiogram pending, carotid Dopplers obtained-negative for occlusive disease. Cardiology consultation for assistance with arrhythmias. Continue magnesium replacement, repeat electrolytes pending at this time of this dictation. Patient is critically ill-time in 1050, Timeout 1146. Discussed with patient's daughter/DPOA. Discussed with nursing, discussed with cardiology. 11/07/17 Expressive aphasia has resolved, no other neurological deficits present. Imaging to date has not revealed acute stroke and unable to obtain MRI. Clinical course consistent with stroke. Converted from atrial fibrillation back to sinus rhythm (with occasional paced rhythm) on amiodarone. Cardiac catheterization today without evidence of significant coronary disease- formal report pending. Echocardiogram with ejection fraction 30-35%, global hypokinesis, and LVH. No significant valvular disease but PAP 50. Cardiology has initiated Entresto, carvedilol, and plans LifeVest with respect to cardiomyopathy. Lisinopril and atenolol discontinued in light of above changes. Discussed longer-term anticoagulation with cardiology-given paroxysmal atrial fibrillation and evidence of cardioembolic event believe anticoagulation should be considered. Potassium replaced IV this morning; magnesium relatively stable. Levothyroxine discontinued for now; free T4 excessively elevated, TSH depressed following dose increase in September from 75 to 100 g after outpatient labs revealed TSH 5.12 and free T4 1.3 Transfer to medical unit. 11/08/17 Patient remains in sinus rhythm. She is hemodynamically stable. Continue Entresto, carvedilol and LifeVest per cardiology. Magnesium down to 1.3, and IV replacement has been ordered. Potassium has been corrected to 3.8. Levothyroxine has been discontinued. White count is stable, hemoglobin 15.1. Platelets have increased to 428. Will reassess in the morning along with BMP and magnesium level. Syncope until earlier this evening, repeat CT head unremarkable. Creatinine, hemoglobin, and fluid balance in conjunction with weight loss suggest dehydration. Mildly orthostatic; replace volume overnight. No arrhythmias were telemetry at time of syncopal event and patient was up to the bathroom one episode occurred. EKG pending, troponin slightly increased-recheck in a.m. No significant coronary disease by cardiac catheterization yesterday. 11/09/17 Patient converted to atrial fibrillation this morning-patient is hyperthyroid currently due to excess hormone replacement. Atenolol converted to carvedilol in the past 48 hours due to identification of cardiomyopathy, may have an adequate beta blockade with low-dose carvedilol. Discussed with cardiology. IV amiodarone resumed for A. fib, rate improved. Episodic hypotension, may correspond to initiation of Entresto, dose held this am. Continue volume replacement. Magnesium improved after IV replacement yesterday, oral replacement initiated yesterday evening. Levothyroxine on hold, recheck TSH/free T4 early in the week to help assess when to resume lower dose levothyroxine Hemoglobin remains elevated from baseline consistent with hemoconcentration, creatinine improving with hydration. Low-dose Flexeril and heating pad initiated for neck spasm in conjunction with Tylenol/ibuprofen for headache. Continue supportive care. Will ask OT to complete ABIOLA evaluation daughter has expressed concerns about patient's ability to manage medications at home. 11/10/17 Remains in atrial fibrillation-telemetry strips reviewed, rate slowly improving. Converted to metoprolol XL 25 mg/d yesterday evening due to hyperthyroidism/ cardiomyopathy. Levothyroxine remains on hold-last dose 11/07 at which time she received 25 g. Resume lower dose replace in approximately 1 week. Ongoing IV/by mouth magnesium replacement-may be problematic with diuretic use. Able to take Entresto last night and this am without drop in BP of concern. LifeVest pending. Speech therapy completed cognitive eval today revealing significant deficits in patient's ability to problem solve, recall general information, organize, and in abstract reasoning. Recent memory, time orientation and remote memory all impaired to some degree. OT completed ABIOLA with score of 7 indicating need for assistance to live in the community. Will discuss with patient's daughter. Discussed with Dr. Pedersen who felt patient still had some component of expressive aphasia and recommended ongoing speech therapy. Discontinue IV fluids.
[2017-11-10] MEDS: ACETAMINOPHEN 325 MG TABLET PO PRN (19:51)
[2017-11-10] MEDS: ATORVASTATIN 20 MG TABLET PO SCH (20:10)
[2017-11-11] MEDS: OMEPRAZOLE 20 MG CAPSULE PO SCH (06:11)
[2017-11-11] MEDS: SACUBITRIL/VALSARTAN 24/26mg TABLET PO SCH ×2 (09:21→20:11)
[2017-11-11] MEDS: FUROSEMIDE 40 MG TABLET PO SCH (09:22)
[2017-11-11] MEDS: APIXABAN 5 MG TABLET PO SCH ×2 (09:22→20:11)
[2017-11-11] MEDS: CALCIUM CARBONATE 600 MG TABLET PO SCH (09:22)
[2017-11-11] MEDS: MAGNESIUM OXIDE 400 MG TABLET PO SCH ×2 (09:22→20:11)
--- NOTE | 2017-11-11 13:25 | Cardiology Progress Note ---
<Dee Valladares M - Last Filed: 11/11/17 16:29> Subjective Principal diagnosis: VTach, A-fib, and ASHF Interval history: Kisha is seen in follow up for Atrial fibrillation, NSVT and Acute systolic HF. She is sitting up in the chair, her brother is at the bedside. She has multiple questions about her discharge and doesn't follow the conversation well asking the same questions multiple times. She denies chest pain, palpitations, dyspnea. Exam Vital signs: Temperature 97.5 F 11/11/17 08:13 Pulse Rate 82 11/11/17 11:19 Respiratory Rate 16 11/11/17 08:13 Blood Pressure 79/61 11/11/17 11:19 Pulse Oximetry 98 11/11/17 11:43 Inpatient Medications: Generic Name Dose Route Start Last Admin Trade Name Freq PRN Reason Stop Dose Admin Acetaminophen 325 - 650 mg 11/07/17 15:40 11/10/17 19:51 Tylenol PO 650 mg Q5H PRN Administration Pain Hydrocodone Bitart/Acetaminophen 1 - 2 tab 11/07/17 15:40 [place] 5/325 PO Q5H PRN Pain Hydrocodone Bitart/Acetaminophen 1 tab 11/07/17 19:35 [place] 5/325 PO Q6H PRN Pain Al Hydroxide/Mg Hydroxide 30 ml 11/07/17 15:40 Maalox Plus PO Q3H PRN Indigestion Albuterol Sulfate 2.5 mg 11/06/17 01:39 Proventil Neb (0.083%) AEROSOL RTQID PRN Apixaban 5 mg 11/09/17 09:00 11/11/17 09:22 Eliquis PO 5 mg BID HERMELINDO Administration Atorvastatin Calcium 20 mg 11/06/17 21:00 11/10/17 20:10 Lipitor PO 20 mg HS HERMELINDO Administration Atropine Sulfate 0.5 mg 11/07/17 15:40 Atropine IVP Q5M PRN Bradycardia Bisacodyl 5 - 10 mg 11/07/17 15:40 Dulcolax PO DAILY PRN Constipation Bisacodyl 10 mg 11/07/17 15:40 Dulcolax RECTALLY DAILY PRN Constipation Calcium Carbonate 600 mg 11/06/17 09:00 11/11/17 09:22 Caltrate PO 600 mg DAILY HERMELINDO Administration Cyclobenzaprine HCl 5 mg 11/09/17 14:37 11/09/17 21:57 Flexeril PO 5 mg TID PRN Administration Muscle spasm Furosemide 40 mg 11/12/17 09:00 Lasix 40 Mg Tab PO DAILY HERMELINDO Lorazepam 0.5 - 1 mg 11/07/17 15:40 Ativan PO Q4H PRN Anxiety Lorazepam 0.5 - 1 mg 11/07/17 15:40 Ativan Inj IVP Q4H PRN Anxiety Magnesium Hydroxide 30 ml 11/07/17 15:40 Mom PO DAILY PRN Constipation Magnesium Oxide 800 mg 11/10/17 21:00 11/11/17 09:22 Magox PO 800 mg BID HERMELINDO Administration Metoclopramide HCl 5 mg 11/06/17 10:55 Reglan IVP Q6H PRN Metoclopramide HCl 5 - 10 mg 11/07/17 15:40 Reglan IVP Q6H PRN Nausea &/or vomiting Metoprolol Succinate 75 mg 11/11/17 09:30 Toprol Xl PO DAILY HERMELINDO Morphine Sulfate 2 - 4 mg 11/06/17 09:07 11/06/17 13:19 Morphine Sulfate Inj IVP 2 mg Q1H PRN Administration Pain Morphine Sulfate 2 - 4 mg 11/07/17 15:40 Morphine Sulfate Inj IVP Q5M PRN Angina Nitroglycerin 0.4 mg 11/07/17 15:40 Nitrostat SL Q5M PRN Angina Omeprazole 20 mg 11/11/17 06:30 11/11/17 06:11 Prilosec PO 20 mg ACB HEREMLINDO Administration Ondansetron HCl 4 mg 11/07/17 15:40 11/08/17 19:13 Zofran IVP 4 mg Q6H PRN Administration Nausea &/or vomiting Potassium Chloride 10 meq 11/12/17 08:00 K-Dur 10 Meq Tablet PO WB HERMELINDO Promethazine HCl 12.5 - 25 mg 11/07/17 15:40 Phenergan Inj IVP Q6HR PRN Nausea &/or vomiting Sacubitril/Valsartan 1 tab 11/07/17 21:00 11/11/17 09:21 Entresto 24/26mg PO 1 tab BID HERMELINDO Administration Sodium Chloride 10 - 80 ml 11/05/17 21:39 11/07/17 16:33 Iv Flush IVF 10 ml PRN PRN Administration Flushing Discontinued Medications Generic Name Dose Route Start Last Admin Trade Name Mario Alberto PRN Reason Stop Dose Admin Acetaminophen 650 mg 11/06/17 01:08 11/06/17 01:23 Tylenol PO 650 mg Q6H PRN Administration Fever Hydrocodone Bitart/Acetaminophen 1 tab 11/06/17 01:39 11/06/17 03:27 [place] 5/325 PO 1 tab Q4H PRN Administration Pain Albuterol Sulfate 8 puff 11/05/17 22:18 11/05/17 22:22 Ventolin Hfa ORAL INH 11/05/17 22:19 2 puff O ONE Administration Albuterol Sulfate 2.5 mg 11/05/17 22:37 11/05/17 22:40 Proventil Neb (0.083%) AEROSOL 11/05/17 22:38 2.5 mg O ONE Administration Amiodarone HCl 200 mg 11/06/17 13:00 11/10/17 09:51 Pacerone PO 200 mg DAILY [facility] Administration Aspirin 81 mg 11/06/17 09:00 11/10/17 09:52 Ecotrin PO 81 mg DAILY [facility] Administration Atenolol 50 mg 11/06/17 09:00 11/07/17 08:29 Tenormin PO 50 mg DAILY [facility] Administration Carvedilol 3.125 mg 11/07/17 17:30 11/09/17 09:32 Coreg PO Not Given BIDWM [facility] Clopidogrel Bisulfate 75 mg 11/06/17 01:30 11/08/17 08:52 Plavix PO 75 mg DAILY [facility] Administration Device 1 each 11/05/17 22:19 11/05/17 22:22 Optichamber MC 11/05/17 22:20 1 each O ONE Administration Dexamethasone 8 mg 11/05/17 22:18 11/05/17 22:25 Decadron IVP 11/05/17 22:19 8 mg O ONE Administration Enoxaparin Sodium 40 mg 11/06/17 09:00 11/06/17 10:05 Lovenox SQ 40 mg DAILY [facility] Administration Enoxaparin Sodium 40 mg 11/08/17 09:00 11/08/17 08:59 Lovenox SQ 40 mg DAILY [facility] Administration Flecainide Acetate 100 mg 11/06/17 09:00 11/06/17 03:37 Tambocor PO 100 mg BID HERMELINDO Administration Furosemide 40 mg 11/07/17 16:00 11/10/17 05:40 Lasix 40 Mg/4 Ml IVP 40 mg Q12H HERMELINDO Administration Furosemide 40 mg 11/10/17 17:00 11/11/17 09:22 Lasix 40 Mg Tab PO 40 mg 0900,1700 HERMELINDO Administration Heparin Sodium (Beef Lung) 3,700 unit 11/06/17 13:00 11/06/17 13:26 Heparin Bolus 60 unit/kg (3700 unit) 11/06/17 13:01 3,700 unit IV Administration O ONE Heparin Sodium (Porcine) 1 each 11/06/17 11:08 Pharmacy Consult - Heparin MC 11/06/17 11:09 ONE TIME ONE Magnesium Sulfate/Dextrose 1 gm in 100 mls @ 100 mls/hr 11/06/17 04:00 06:22 Mag Sulf 1gm Premix IV 11/06/17 05:59 Infused Q1H HERMELINDO Infusion Amiodarone HCl 450 mg/ Sodium 250 mls @ 33.33 mls/hr 11/06/17 05:30 11/06/17 13:00 Chloride IV 11/06/17 11:30 Infused .Q7H31M HERMELINDO Infusion 1 MG/MIN Amiodarone HCl 150 mg/ Sodium 103 mls @ 618 mls/hr 11/06/17 04:51 11/06/17 05 :16 Chloride IV 11/06/17 05:00 Infused O ONE Infusion Amiodarone HCl 900 mg/ Sodium 500 mls @ 16.66 mls/hr 11/06/17 11:30 11/06/17 14:22 Chloride IV Infused .Q24H HERMELINDO Infusion 0.5 MG/MIN Magnesium Sulfate/Dextrose 1 gm in 100 mls @ 100 mls/hr 11/06/17 11:00 14:23 Mag Sulf 1gm Premix IV 11/06/17 12:59 100 mls/hr Q1H HERMELINDO Administration Heparin Sodium (Porcine) 20,000 unit in 500 mls @ 18 mls/hr 11/06/17 13:00 15:42 Heparin Drip IV Infused .Q24H HERMELINDO Titration Protocol Lidocaine HCl 10 mg/ Potassium 100 mls @ 100 mls/hr 11/07/17 09:15 11/07/17 16:42 Chloride 10 meq/ Sodium IV 11/07/17 13:28 Infused Chloride .Q1H HERMELINDO Infusion Magnesium Sulfate/Dextrose 1 gm in 100 mls @ 100 mls/hr 11/08/17 06:15 09:05 Mag Sulf 1gm Premix IV 11/08/17 08:14 Infused Q1H HERMELINDO Infusion Sodium Chloride 1,000 mls @ 125 mls/hr 11/08/17 21:45 11/10/17 19:48 Normal Saline IV Infused .Q8H HERMELINDO Infusion Amiodarone HCl 150 mg/ Sodium 103 mls @ 618 mls/hr 11/09/17 09:28 11/09/17 10 :26 Chloride IV 11/09/17 09:37 Infused O ONE Infusion Magnesium Sulfate/Dextrose 1 gm in 100 mls @ 100 mls/hr 11/10/17 13:40 15:08 Mag Sulf 1gm Premix IV 11/10/17 14:39 Infused O ONE Infusion Magnesium Sulfate/Dextrose 1 gm in 100 mls @ 100 mls/hr 11/10/17 14:45 19:38 Mag Sulf 1gm Premix IV 11/10/17 16:44 Infused Q1H HERMELINDO Infusion Magnesium Sulfate/Dextrose 1 gm in 100 mls @ 100 mls/hr 11/10/17 16:30 16:59 Mag Sulf 1gm Premix IV 11/10/17 18:29 Not Given Q1H HERMELINDO Ibuprofen 200 mg 11/09/17 10:33 11/09/17 11:14 Motrin PO 11/09/17 10:34 200 mg O ONE Administration Labetalol HCl 20 mg 11/06/17 01:08 11/06/17 04:18 Trandate IVP 20 mg Q10M PRN Administration Hypertension Levothyroxine Sodium 25 mcg 11/06/17 06:30 11/07/17 08:29 Synthroid PO 25 mcg ACB HERMELINDO Administration Lisinopril 10 mg 11/06/17 09:00 Prinivil PO DAILY HERMELINDO Magnesium Oxide 400 mg 11/08/17 21:00 11/10/17 09:52 Magox PO 400 mg BID HERMELINDO Administration Metoprolol Succinate 25 mg 11/09/17 17:00 11/11/17 09:22 Toprol Xl PO 11/11/17 09:00 25 mg DAILY HERMELINDO Administration Metoprolol Succinate 50 mg 11/11/17 09:00 11/11/17 09:21 Toprol Xl PO 50 mg DAILY HERMELINDO Administration Metoprolol Succinate 25 mg 11/10/17 15:00 11/10/17 15:19 Toprol Xl PO 11/10/17 15:01 25 mg O ONE Administration Metoprolol Tartrate 5 mg 11/05/17 22:00 11/05/17 23:05 Lopressor IVP 5 mg Q2MIN HERMELINDO Administration Morphine Sulfate 2 - 4 mg 11/07/17 15:40 Morphine Sulfate Inj IVP 11/08/17 15:39 Q2H PRN Pain Ondansetron HCl 4 mg 11/06/17 10:57 11/06/17 11:38 Zofran IVP 11/06/17 10:58 4 mg O ONE Administration Pantoprazole Sodium 40 mg 11/06/17 09:00 11/07/17 08:28 Protonix Iv IVP 40 mg DAILY HERMELINDO Administration Pantoprazole Sodium 40 mg 11/08/17 06:30 11/10/17 06:12 Protonix Tab PO 40 mg ACB HERMELINDO Administration Pharmacy Consult 1 each 11/06/17 01:48 Pharmacy Consult - Fall Risk 11/06/17 01:49 ONE TIME ONE Pharmacy Consult 1 each 11/09/17 23:51 Pharmacy Consult - Fall Risk 11/09/17 23:52 ONE TIME ONE Potassium Chloride 20 meq 11/07/17 17:30 11/11/17 08:31 K-Dur 20 Meq Tablet PO Not Given BIDWM HERMELINDO Potassium Chloride 10 meq 11/11/17 08:15 11/11/17 09:21 K-Dur 10 Meq Tablet PO 10 meq BIDWM HERMELINDO Administration Sodium Chloride 500 ml 11/09/17 09:25 11/09/17 09:33 Normal Saline IV 11/09/17 09:26 Not Given O ONE - Constitutional no acute distress, well nourished, cooperative - Routine HEENT Exam Head: Present: normocephalic ENT: Present: mucous membranes moist - Routine Neck Exam Absent: JVD, carotid bruit - Routine Chest/Breast/Axilla Exam Chest wall: Absent: tenderness - Routine Respiratory Exam Present: CTA bilaterally. Absent: dyspnea, rales, wheezes - Routine Cardiovascular Exam Present: no murmur, irregularly irregular - Routine Abdominal Exam Present: soft, non tender - Routine Extremities Exam Present: no edema - Routine Skin Exam Present: intact, dry, warm - Routine Neurological Exam Present: alert, oriented X3 - Routine Psychiatric Exam Present: normal affect, normal thought process Results 11/11/17 05:25 11/11/17 05:25 CBC 11/11/17 Range/Units 05:25 WBC 7.7 (4.5-11.0) T/MM3 RBC 5.23 H (4.00-5.20) M/MM3 Hgb 15.5 (12-16) GM/DL Hct 46.1 H (36-46) % Plt Count 432 H (130-400) T/MM3 Neut # (Auto) 4.3 (1.8-7.7) T/MM3 Lymph # (Auto) 2.0 (1-4.8) T/MM3 [place] # (Auto) 1.0 H (0-0.8) T/MM3 Eos # (Auto) 0.3 (0-0.5) T/MM3 Baso # (Auto) 0.1 (0-0.2) T/MM3 Comprehensive Metabolic Panel 11/11/17 Range/Units 05:25 Sodium 142 (136-146) MEQ/L Potassium 4.8 (3.6-5) MEQ/L Chloride 108 H (98-107) MEQ/L Carbon Dioxide 24 (22-30) MEQ/L BUN 21.0 H (7-17) MG/DL Creatinine 0.8 (0.7-1.2) mg/dL Glucose 87 (65-110) MG/DL Calcium 9.0 D (8.4-10.2) MG/DL Intake and Output 11/10/17 11/11/17 11/11/17 22:59 06:59 14:59 Intake Total 1800 / 1800 240 / 240 Output Total 395 / 395 325 / 325 110 / 110 Balance 1405 / 1405 -325 / -325 130 / 130 Intake: IV 1300 / 1300 MAGNESIUM SULFATE 1gm PREMIX 1 300 / 300 gm In 100 ml @ 100 mls/hr IV Q1H HERMELINDO Rx#:[id number] Ns 1,000 ml @ 125 mls/hr IV . 1000 / 1000 Q8H HERMELINDO Rx#:[id number] Oral 500 / 500 240 / 240 Output: Urine 395 / 395 325 / 325 110 / 110 Other: Urine Appearance Clear Clear Clear Cloudy Cloudy Urine Color Pale Pale Pale Yellow Yellow Yellow Urine Odor Normal Normal Stool Color Brown Stool Consistency Soft Size of Bowel Movement Smear Moderate # Voids 1 1 # Bowel Movements 1 Assessment and Plan - Assessment and Plan (1) HTN (hypertension) Status: Chronic (2) Ventricular tachyarrhythmia Status: Acute (3) Presence of cardiac pacemaker Problem details: Doculogy Status: Chronic (4) Paroxysmal atrial fibrillation Status: Chronic (5) Mixed hyperlipidemia Status: Chronic (6) Cardiomyopathy Problem details: Non ischemic Status: Acute - Assessment and Plan 11/06/17 Ventricular tachyarrhythmia Current visit: Yes Status: Acute - Mag 1.5, replace with 2gm per IV - Plan LHC tomorrow due to ventricular arrhythmia. - NPO except meds after MN - Continue to monitor telemetry Presence of cardiac pacemaker Problem details: Doculogy Current visit: Yes Status: Chronic - interrogate please Paroxysmal atrial fibrillation Current visit: Yes Status: Chronic - Previously on Flecainide 100mg BID and Aspirin 325mg daily - Takes Atenolol 25mg daily for rate control. - Amiodarone 200mg daily for AAT Mixed hyperlipidemia Current visit: Yes Status: Chronic - Takes Atorvastatin 20mg daily HTN (hypertension) Current visit: Yes Status: Chronic - Continue Atenolol and Lisinopril Thank you for allowing us to participate in the care of this patient. 11/07/17 Dilated, Acute, cardiomyopathy - EF 30-35% - LifeVest - Coreg and Entresto Change Atenolol to Coreg due to reduced EF of 30-35% - DC Lisinopril. Entresto 24/26mg 36 hours after last dose of Lisinopril - Lasix 40mg BID with KCL 20meq BID - Monitor renal and electrolytes 11/09/2017 Dilated, Acute, cardiomyopathy - EF 30-35% - 11/07/2017 HC: no CAD. - Entresto 24/ with parameters to hold if SBP < 120. When Entresto was started her SBP dropped from 140 to 75 (standing). - Held Entresto and Coreg this am due to hypotension. - Stop Coreg and start metoprolol succ due to A-fib and thyroid issues. - Lasix 40mg BID with KCL 20meq BID - on 11/08 and 11/09 U/O > 2000 with bal (- 2000) on 11/08. - now too dry and giving IVF. - Monitor I/O, Wts, renal and electrolytes - Life Vest ordered - fit on Friday per RN. Syncopal episode / hypotension on 11/08 - no arrhythmias, SBP 70's, Wt down 4 kg, Cr, BUN, Hbg, slightly up. may be too dry. - lungs clear, no edema, no orthopnea - can tolerate IVF. - IVF 500ml bolus this am and IVF at 125ml/hr. - 11/08 CT head not acute. - 11/06 carotid doppler: no sigificant stenosis. A-fib w RVR - wnet into A-fib 11/09 am and convert back to SR this am. - cont amiodarone 200mg po daily - gave amiodarone 125mg IV bolus. - treated headache and resolved. - K+ and Mag wnl. TSH low and FT4 high Hypothyroid - TSH 0.03 (low) and FT4 2.34 (high) - levothyroxine was increased prior to hospitalization due to low thyroid. Now high and - Levothyroxine stopped, Dr. Bond plans recheck and restart in future. - maybe contributing to A-fib - we stopped atenolol and started Coreg for SHF. May need BB for HR. - stop Coreg and start metoprolol succinate 25mg daily. PPM in situ TIA Disposition - Dr. Bond plans ABIOLA eval. - PT states her brother lives with her and takes care of yard work. - Daughter from [place] due to arrive on 11/10/17 Patient remains underlying atrial flutter when not pacing. - Stop Amiodarone - Increase Metoprolol Succinate to 75mg daily for better rate control - She needs to stay on Metoprolol Succinate or Carvedilol to improve EF ( metoprolol tartrate is not effective) - Awaiting payer for [employer] - Mag 1.2 has received 1 gm, give additional 2 gm IV today - Change IV Lasix to 40mg po BID - Monitor renal and electrolytes 11/11/17 HR better rate control, BP borderline low Reduce Lasix to daily and potassium to daily Hospital Course Summary Disclaimer: The visit summary below is not to be considered part of the above Progress Note. Hospital Course: 11/06/17 Patient admitted to ICU with combined acute stroke, arrhythmias, hyperthyroidism , and hypomagnesemia. Will require CT imaging of the head with contrast/CTA when arrhythmias stabilize and permit. Continue aspirin at present. Speech therapy evaluation in conjunction with PT/ OT. Discontinue levofloxacin, may require endocrine evaluation. Will need initiation of beta ritu. Avoid hypotension or excessive lowering of blood pressure due to acute stroke. Echocardiogram pending, carotid Dopplers obtained-negative for occlusive disease. Cardiology consultation for assistance with arrhythmias. Continue magnesium replacement, repeat electrolytes pending at this time of this dictation. Patient is critically ill-time in 1050, Timeout 1146. Discussed with patient's daughter/DPOA. Discussed with nursing, discussed with cardiology. 11/07/17 Expressive aphasia has resolved, no other neurological deficits present. Imaging to date has not revealed acute stroke and unable to obtain MRI. Clinical course consistent with stroke. Converted from atrial fibrillation back to sinus rhythm (with occasional paced rhythm) on amiodarone. Cardiac catheterization today without evidence of significant coronary disease- formal report pending. Echocardiogram with ejection fraction 30-35%, global hypokinesis, and LVH. No significant valvular disease but PAP 50. Cardiology has initiated Entresto, carvedilol, and plans LifeVest with respect to cardiomyopathy. Lisinopril and atenolol discontinued in light of above changes. Discussed longer-term anticoagulation with cardiology-given paroxysmal atrial fibrillation and evidence of cardioembolic event believe anticoagulation should be considered. Potassium replaced IV this morning; magnesium relatively stable. Levothyroxine discontinued for now; free T4 excessively elevated, TSH depressed following dose increase in September from 75 to 100 g after outpatient labs revealed TSH 5.12 and free T4 1.3 Transfer to medical unit. 11/08/17 Patient remains in sinus rhythm. She is hemodynamically stable. Continue Entresto, carvedilol and LifeVest per cardiology. Magnesium down to 1.3, and IV replacement has been ordered. Potassium has been corrected to 3.8. Levothyroxine has been discontinued. White count is stable, hemoglobin 15.1. Platelets have increased to 428. Will reassess in the morning along with BMP and magnesium level. Syncope until earlier this evening, repeat CT head unremarkable. Creatinine, hemoglobin, and fluid balance in conjunction with weight loss suggest dehydration. Mildly orthostatic; replace volume overnight. No arrhythmias were telemetry at time of syncopal event and patient was up to the bathroom one episode occurred. EKG pending, troponin slightly increased-recheck in a.m. No significant coronary disease by cardiac catheterization yesterday. <Andrez Rowe - Last Filed: 11/19/17 13:01> Exam Vital signs: Temperature 97.5 F 11/12/17 12:25 Pulse Rate 83 11/12/17 12:25 Respiratory Rate 14 11/12/17 12:25 Blood Pressure 102/52 11/12/17 12:25 Pulse Oximetry 98 11/12/17 12:25 Inpatient Medications: Discontinued Medications Generic Name Dose Route Start Last Admin Trade Name Freq PRN Reason Stop Dose Admin Acetaminophen 650 mg 11/06/17 01:08 11/06/17 01:23 Tylenol PO 650 mg Q6H PRN Administration Fever Acetaminophen 325 - 650 mg 11/07/17 15:40 11/12/17 12:48 Tylenol PO 650 mg Q5H PRN Administration Pain Hydrocodone Bitart/Acetaminophen 1 tab 11/06/17 01:39 11/06/17 03:27 [place] 5/325 PO 1 tab Q4H PRN Administration Pain Hydrocodone Bitart/Acetaminophen 1 - 2 tab 11/07/17 15:40 [place] 5/325 PO Q5H PRN Pain Hydrocodone Bitart/Acetaminophen 1 tab 11/07/17 19:35 [place] 5/325 PO Q6H PRN Pain Al Hydroxide/Mg Hydroxide 30 ml 11/07/17 15:40 Maalox Plus PO Q3H PRN Indigestion Albuterol Sulfate 8 puff 11/05/17 22:18 11/05/17 22:22 Ventolin Hfa ORAL INH 11/05/17 22:19 2 puff O ONE Administration Albuterol Sulfate 2.5 mg 11/05/17 22:37 11/05/17 22:40 Proventil Neb (0.083%) AEROSOL 11/05/17 22:38 2.5 mg O ONE Administration Albuterol Sulfate 2.5 mg 11/06/17 01:39 Proventil Neb (0.083%) AEROSOL RTQID PRN Amiodarone HCl 200 mg 11/06/17 13:00 11/10/17 09:51 Pacerone PO 200 mg DAILY HERMELINDO Administration Apixaban 5 mg 11/09/17 09:00 11/12/17 08:39 Eliquis PO 5 mg BID HERMELINDO Administration Aspirin 81 mg 11/06/17 09:00 11/10/17 09:52 Ecotrin PO 81 mg DAILY [facility] Administration Atenolol 50 mg 11/06/17 09:00 11/07/17 08:29 Tenormin PO 50 mg DAILY HERMELINDO Administration Atorvastatin Calcium 20 mg 11/06/17 21:00 11/11/17 20:10 Lipitor PO 20 mg HS [facility] Administration Atropine Sulfate 0.5 mg 11/07/17 15:40 Atropine IVP Q5M PRN Bradycardia Bisacodyl 5 - 10 mg 11/07/17 15:40 Dulcolax PO DAILY PRN Constipation Bisacodyl 10 mg 11/07/17 15:40 Dulcolax RECTALLY DAILY PRN Constipation Calcium Carbonate 600 mg 11/06/17 09:00 11/12/17 08:39 Caltrate PO 600 mg DAILY [facility] Administration Carvedilol 3.125 mg 11/07/17 17:30 11/09/17 09:32 Coreg PO Not Given BIDWM [facility] Clopidogrel Bisulfate 75 mg 11/06/17 01:30 11/08/17 08:52 Plavix PO 75 mg DAILY [facility] Administration Cyclobenzaprine HCl 5 mg 11/09/17 14:37 11/09/17 21:57 Flexeril PO 5 mg TID PRN Administration Muscle spasm Device 1 each 11/05/17 22:19 11/05/17 22:22 Optichamber MC 11/05/17 22:20 1 each O ONE Administration Dexamethasone 8 mg 11/05/17 22:18 11/05/17 22:25 Decadron IVP 11/05/17 22:19 8 mg O ONE Administration Enoxaparin Sodium 40 mg 11/06/17 09:00 11/06/17 10:05 Lovenox SQ 40 mg DAILY [facility] Administration Enoxaparin Sodium 40 mg 11/08/17 09:00 11/08/17 08:59 Lovenox SQ 40 mg DAILY [facility] Administration Flecainide Acetate 100 mg 11/06/17 09:00 11/06/17 03:37 Tambocor PO 100 mg BID [facility] Administration Furosemide 40 mg 11/07/17 16:00 11/10/17 05:40 Lasix 40 Mg/4 Ml IVP 40 mg Q12H HERMELINDO Administration Furosemide 40 mg 11/10/17 17:00 11/11/17 09:22 Lasix 40 Mg Tab PO 40 mg 0900,1700 HERMELINDO Administration Furosemide 40 mg 11/12/17 09:00 11/12/17 08:49 Lasix 40 Mg Tab PO 40 mg DAILY HERMELINDO Administration Heparin Sodium (Beef Lung) 3,700 unit 11/06/17 13:00 11/06/17 13:26 Heparin Bolus 60 unit/kg (3700 unit) 11/06/17 13:01 3,700 unit IV Administration O ONE Heparin Sodium (Porcine) 1 each 11/06/17 11:08 Pharmacy Consult - Heparin MC 11/06/17 11:09 ONE TIME ONE Magnesium Sulfate/Dextrose 1 gm in 100 mls @ 100 mls/hr 11/06/17 04:00 06:22 Mag Sulf 1gm Premix IV 11/06/17 05:59 Infused Q1H HERMELINDO Infusion Amiodarone HCl 450 mg/ Sodium 250 mls @ 33.33 mls/hr 11/06/17 05:30 11/06/17 13:00 Chloride IV 11/06/17 11:30 Infused .Q7H31M HERMELINDO Infusion 1 MG/MIN Amiodarone HCl 150 mg/ Sodium 103 mls @ 618 mls/hr 11/06/17 04:51 11/06/17 05 :16 Chloride IV 11/06/17 05:00 Infused O ONE Infusion Amiodarone HCl 900 mg/ Sodium 500 mls @ 16.66 mls/hr 11/06/17 11:30 11/06/17 14:22 Chloride IV Infused .Q24H HERMELINDO Infusion 0.5 MG/MIN Magnesium Sulfate/Dextrose 1 gm in 100 mls @ 100 mls/hr 11/06/17 11:00 14:23 Mag Sulf 1gm Premix IV 11/06/17 12:59 100 mls/hr Q1H HERMELINDO Administration Heparin Sodium (Porcine) 20,000 unit in 500 mls @ 18 mls/hr 11/06/17 13:00 15:42 Heparin Drip IV Infused .Q24H HERMELINDO Titration Protocol Lidocaine HCl 10 mg/ Potassium 100 mls @ 100 mls/hr 11/07/17 09:15 11/07/17 16:42 Chloride 10 meq/ Sodium IV 11/07/17 13:28 Infused Chloride .Q1H HERMELINDO Infusion Magnesium Sulfate/Dextrose 1 gm in 100 mls @ 100 mls/hr 11/08/17 06:15 09:05 Mag Sulf 1gm Premix IV 11/08/17 08:14 Infused Q1H HERMELINDO Infusion Sodium Chloride 1,000 mls @ 125 mls/hr 11/08/17 21:45 11/10/17 19:48 Normal Saline IV Infused .Q8H HERMELINDO Infusion Amiodarone HCl 150 mg/ Sodium 103 mls @ 618 mls/hr 11/09/17 09:28 11/09/17 10 :26 Chloride IV 11/09/17 09:37 Infused O ONE Infusion Magnesium Sulfate/Dextrose 1 gm in 100 mls @ 100 mls/hr 11/10/17 13:40 15:08 Mag Sulf 1gm Premix IV 11/10/17 14:39 Infused O ONE Infusion Magnesium Sulfate/Dextrose 1 gm in 100 mls @ 100 mls/hr 11/10/17 14:45 19:38 Mag Sulf 1gm Premix IV 11/10/17 16:44 Infused Q1H HERMELINDO Infusion Magnesium Sulfate/Dextrose 1 gm in 100 mls @ 100 mls/hr 11/10/17 16:30 16:59 Mag Sulf 1gm Premix IV 11/10/17 18:29 Not Given Q1H HERMELINDO Ibuprofen 200 mg 11/09/17 10:33 11/09/17 11:14 Motrin PO 11/09/17 10:34 200 mg O ONE Administration Labetalol HCl 20 mg 11/06/17 01:08 11/06/17 04:18 Trandate IVP 20 mg Q10M PRN Administration Hypertension Levothyroxine Sodium 25 mcg 11/06/17 06:30 11/07/17 08:29 Synthroid PO 25 mcg ACB HERMELINDO Administration Lisinopril 10 mg 11/06/17 09:00 Prinivil PO DAILY HERMELINDO Lorazepam 0.5 - 1 mg 11/07/17 15:40 Ativan PO Q4H PRN Anxiety Lorazepam 0.5 - 1 mg 11/07/17 15:40 Ativan Inj IVP Q4H PRN Anxiety Magnesium Hydroxide 30 ml 11/07/17 15:40 Mom PO DAILY PRN Constipation Magnesium Oxide 400 mg 11/08/17 21:00 11/10/17 09:52 Magox PO 400 mg BID HERMELINDO Administration Magnesium Oxide 800 mg 11/10/17 21:00 11/12/17 08:39 Magox PO 800 mg BID HERMELINDO Administration Metoclopramide HCl 5 mg 11/06/17 10:55 Reglan IVP Q6H PRN Metoclopramide HCl 5 - 10 mg 11/07/17 15:40 Reglan IVP Q6H PRN Nausea &/or vomiting Metoprolol Succinate 25 mg 11/09/17 17:00 11/11/17 09:22 Toprol Xl PO 11/11/17 09:00 25 mg DAILY HERMELINDO Administration Metoprolol Succinate 50 mg 11/11/17 09:00 11/11/17 09:21 Toprol Xl PO 50 mg DAILY HERMELINDO Administration Metoprolol Succinate 25 mg 11/10/17 15:00 11/10/17 15:19 Toprol Xl PO 11/10/17 15:01 25 mg O ONE Administration Metoprolol Succinate 75 mg 11/11/17 09:30 11/12/17 08:49 Toprol Xl PO 75 mg DAILY HERMELINDO Administration Metoprolol Tartrate 5 mg 11/05/17 22:00 11/05/17 23:05 Lopressor IVP 5 mg Q2MIN HERMELINDO Administration Morphine Sulfate 2 - 4 mg 11/06/17 09:07 11/06/17 13:19 Morphine Sulfate Inj IVP 2 mg Q1H PRN Administration Pain Morphine Sulfate 2 - 4 mg 11/07/17 15:40 Morphine Sulfate Inj IVP 11/08/17 15:39 Q2H PRN Pain Morphine Sulfate 2 - 4 mg 11/07/17 15:40 Morphine Sulfate Inj IVP Q5M PRN Angina Nitroglycerin 0.4 mg 11/07/17 15:40 Nitrostat SL Q5M PRN Angina Omeprazole 20 mg 11/11/17 06:30 11/12/17 05:58 Prilosec PO 20 mg ACB HERMELINDO Administration Ondansetron HCl 4 mg 11/06/17 10:57 11/06/17 11:38 Zofran IVP 11/06/17 10:58 4 mg O ONE Administration Ondansetron HCl 4 mg 11/07/17 15:40 11/08/17 19:13 Zofran IVP 4 mg Q6H PRN Administration Nausea &/or vomiting Pantoprazole Sodium 40 mg 11/06/17 09:00 11/07/17 08:28 Protonix Iv IVP 40 mg DAILY HERMELINDO Administration Pantoprazole Sodium 40 mg 11/08/17 06:30 11/10/17 06:12 Protonix Tab PO 40 mg ACB HERMELINDO Administration Pharmacy Consult 1 each 11/06/17 01:48 Pharmacy Consult - Fall Risk 11/06/17 01:49 ONE TIME ONE Pharmacy Consult 1 each 11/09/17 23:51 Pharmacy Consult - Fall Risk 11/09/17 23:52 ONE TIME ONE Potassium Chloride 20 meq 11/07/17 17:30 11/11/17 08:31 K-Dur 20 Meq Tablet PO Not Given BIDWM HERMELINDO Potassium Chloride 10 meq 11/11/17 08:15 11/11/17 09:21 K-Dur 10 Meq Tablet PO 10 meq BIDWM HERMELINDO Administration Potassium Chloride 10 meq 11/12/17 08:00 11/12/17 08:49 K-Dur 10 Meq Tablet PO 10 meq WB HERMELINDO Administration Promethazine HCl 12.5 - 25 mg 11/07/17 15:40 Phenergan Inj IVP Q6HR PRN Nausea &/or vomiting Sacubitril/Valsartan 1 tab 11/07/17 21:00 11/12/17 08:46 Entresto 24/26mg PO Not Given BID HERMELINDO Sodium Chloride 10 - 80 ml 11/05/17 21:39 11/07/17 16:33 Iv Flush IVF 10 ml PRN PRN Administration Flushing Sodium Chloride 500 ml 11/09/17 09:25 11/09/17 09:33 Normal Saline IV 11/09/17 09:26 Not Given O ONE Results 11/11/17 05:25 11/12/17 04:28 Assessment and Plan - Assessment and Plan (1) HTN (hypertension) Status: Chronic (2) Ventricular tachyarrhythmia Status: Acute (3) Presence of cardiac pacemaker Problem details: Doculogy Status: Chronic (4) Paroxysmal atrial fibrillation Status: Chronic (5) Mixed hyperlipidemia Status: Chronic (6) Cardiomyopathy Problem details: Non ischemic Status: Acute - Attestation Attestation Narrative: 11/19/17 13:01 Recommendation After examining the patient I agree with the above assessment. I am involved in the formulation of the patient's plan of care. Hospital Course Summary Disclaimer: The visit summary below is not to be considered part of the above Progress Note.
--- NOTE | 2017-11-11 16:37 | Progress Note ---
- Date 11/11/17 Subjective: Patient seen this afternoon sitting in her chair. She has no current complaints. No CP, SOA, n/v, f/c. States her appetite is good and her bowels are moving. SHe is hopeful to go home but says her daughter is coming in from [place] tomorrow to make further decisions. Objective Vital signs: Temperature 97.5 F 11/11/17 08:13 Pulse Rate 82 11/11/17 11:19 Respiratory Rate 16 11/11/17 08:13 Blood Pressure 79/61 11/11/17 11:19 Pulse Oximetry 98 11/11/17 11:43 Height/Weight/BMI: Height 1.45 m Weight 60 kg Body Mass Index 29.3 - Constitutional Present: no acute distress, well nourished, well developed - Routine HEENT Exam Head: Present: normocephalic, atraumatic - Routine Respiratory Exam Present: CTA bilaterally. Absent: wheezes - Routine Cardiovascular Exam Present: irregularly irregular - Routine Abdominal Exam Present: soft, non distended, non tender - Routine Extremities Exam Present: no edema, normal capillary refill - Routine Skin Exam Present: dry, warm - Routine Neurological Exam Present: alert, normal speech able to tell me she came in on November 05 following a fall, but her recall of the pre-hospital events does not match our documentation - Routine Lymphatic Exam Lymphatic: Absent: adenopathy - Routine Psychiatric Exam Present: normal affect, cooperative Results - Labs CBC & Chem 7: 11/11/17 05:25 11/11/17 05:25 Assessment and Plan (1) Expressive aphasia Current visit: Yes Status: Acute Assessment and Plan: Impression: Expressive aphasia/acute ischemic stroke Paroxysmal atrial fibrillation with RVR Hypomagnesemia 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 Hopes to go home tomorrow pending discussion with daughter. Scored 7 on ABIOLA. Remains in atrial fibrillation - average rate 100. Metoprolol XL increased to 75 mg/d today per cardiology Reduce Lasix and KCl to daily. Levothyroxine remains on hold-last dose 11/07 at which time she received 25 g. Resume lower dose in approximately 1 week. Magnesium normal today. Continues on po Mg. LifeVest approved. DVT Prophylaxis: Eliquis Resuscitation Status: Full Code - Physician Narrative Physician: Kelle Bond MD Narrative: Date: 11/11/17 Time: 2124 I have independently evaluated and examined this patient. I reviewed the chart, the patient's history, and the CLINICAL SERVICES DIRECTOR/PA's documented findings as above. We discussed and formulated the assessment and plan as above with additions as below: Mrs. Betancourt denies dizziness, chest pain, palpitations today. Her appetite is good and she hopes to go home soon. She remains in atrial fibrillation with rates improving progressively on amiodarone. Respirations are nonlabored and breath sounds are clear; irregularly irregular rate. Insurance in place after assistance from finance department; LifeVest should be delivered tomorrow for cardiomyopathy. Levothyroxine sodium remains on hold-would like to hold for approximately 10 days and then reassess thyroid levels before lower dose resumed. Daughter to arrive tomorrow, assist with longer term plans due to patient's cognitive deficits. Discussed with cardiology and case management. Hospital Course Summary Disclaimer: The visit summary below is not to be considered part of the above Progress Note. Hospital Course: 11/06/17 Patient admitted to ICU with combined acute stroke, arrhythmias, hyperthyroidism , and hypomagnesemia. Will require CT imaging of the head with contrast/CTA when arrhythmias stabilize and permit. Continue aspirin at present. Speech therapy evaluation in conjunction with PT/ OT. Discontinue levofloxacin, may require endocrine evaluation. Will need initiation of beta ritu. Avoid hypotension or excessive lowering of blood pressure due to acute stroke. Echocardiogram pending, carotid Dopplers obtained-negative for occlusive disease. Cardiology consultation for assistance with arrhythmias. Continue magnesium replacement, repeat electrolytes pending at this time of this dictation. Patient is critically ill-time in 1050, Timeout 1146. Discussed with patient's daughter/DPOA. Discussed with nursing, discussed with cardiology. 11/07/17 Expressive aphasia has resolved, no other neurological deficits present. Imaging to date has not revealed acute stroke and unable to obtain MRI. Clinical course consistent with stroke. Converted from atrial fibrillation back to sinus rhythm (with occasional paced rhythm) on amiodarone. Cardiac catheterization today without evidence of significant coronary disease- formal report pending. Echocardiogram with ejection fraction 30-35%, global hypokinesis, and LVH. No significant valvular disease but PAP 50. Cardiology has initiated Entresto, carvedilol, and plans LifeVest with respect to cardiomyopathy. Lisinopril and atenolol discontinued in light of above changes. Discussed longer-term anticoagulation with cardiology-given paroxysmal atrial fibrillation and evidence of cardioembolic event believe anticoagulation should be considered. Potassium replaced IV this morning; magnesium relatively stable. Levothyroxine discontinued for now; free T4 excessively elevated, TSH depressed following dose increase in September from 75 to 100 g after outpatient labs revealed TSH 5.12 and free T4 1.3 Transfer to medical unit. 11/08/17 Patient remains in sinus rhythm. She is hemodynamically stable. Continue Entresto, carvedilol and LifeVest per cardiology. Magnesium down to 1.3, and IV replacement has been ordered. Potassium has been corrected to 3.8. Levothyroxine has been discontinued. White count is stable, hemoglobin 15.1. Platelets have increased to 428. Will reassess in the morning along with BMP and magnesium level. Syncope until earlier this evening, repeat CT head unremarkable. Creatinine, hemoglobin, and fluid balance in conjunction with weight loss suggest dehydration. Mildly orthostatic; replace volume overnight. No arrhythmias were telemetry at time of syncopal event and patient was up to the bathroom one episode occurred. EKG pending, troponin slightly increased-recheck in a.m. No significant coronary disease by cardiac catheterization yesterday. 11/09/17 Patient converted to atrial fibrillation this morning-patient is hyperthyroid currently due to excess hormone replacement. Atenolol converted to carvedilol in the past 48 hours due to identification of cardiomyopathy, may have an adequate beta blockade with low-dose carvedilol. Discussed with cardiology. IV amiodarone resumed for A. fib, rate improved. Episodic hypotension, may correspond to initiation of Entresto, dose held this am. Continue volume replacement. Magnesium improved after IV replacement yesterday, oral replacement initiated yesterday evening. Levothyroxine on hold, recheck TSH/free T4 early in the week to help assess when to resume lower dose levothyroxine Hemoglobin remains elevated from baseline consistent with hemoconcentration, creatinine improving with hydration. Low-dose Flexeril and heating pad initiated for neck spasm in conjunction with Tylenol/ibuprofen for headache. Continue supportive care. Will ask OT to complete ABIOLA evaluation daughter has expressed concerns about patient's ability to manage medications at home. 11/10/17 Remains in atrial fibrillation-telemetry strips reviewed, rate slowly improving. Converted to metoprolol XL 25 mg/d yesterday evening due to hyperthyroidism/ cardiomyopathy. Levothyroxine remains on hold-last dose 11/07 at which time she received 25 g. Resume lower dose replace in approximately 1 week. Ongoing IV/by mouth magnesium replacement-may be problematic with diuretic use. Able to take Entresto last night and this am without drop in BP of concern. LifeVest pending. Speech therapy completed cognitive eval today revealing significant deficits in patient's ability to problem solve, recall general information, organize, and in abstract reasoning. Recent memory, time orientation and remote memory all impaired to some degree. OT completed ABIOLA with score of 7 indicating need for assistance to live in the community. Will discuss with patient's daughter. Discussed with Dr. Pedersen who felt patient still had some component of expressive aphasia and recommended ongoing speech therapy. Discontinue IV fluids. 11/11/17 Pt w/o complaints. Hopes to go home tomorrow pending discussion with daughter. Scored 7 on ABIOLA. Remains in atrial fibrillation - average rate 100. Metoprolol XL increased to 75 mg/d today per cardiology. Lasix and KCl decreased to daily. Magnesium normal today. Continues on po Mg. LifeVest approved.
[2017-11-11] MEDS: ATORVASTATIN 20 MG TABLET PO SCH (20:10)
[2017-11-12] MEDS: OMEPRAZOLE 20 MG CAPSULE PO SCH (05:58)
[2017-11-12 07:36] VITALS: O2SAT 98
[2017-11-12] MEDS: MAGNESIUM OXIDE 400 MG TABLET PO SCH (08:39)
[2017-11-12] MEDS: APIXABAN 5 MG TABLET PO SCH (08:39)
[2017-11-12] MEDS: CALCIUM CARBONATE 600 MG TABLET PO SCH (08:39)
[2017-11-12] MEDS: SACUBITRIL/VALSARTAN 24/26mg TABLET PO SCH (08:46)
[2017-11-12] MEDS ORDERED: FUROSEMIDE 40 MG TABLET PO SCH (09:00)
[2017-11-12 12:26] VITALS: BP 102/52; PULSE 83; RESP 14
[2017-11-12 12:32] VITALS: TEMP 97.5
[2017-11-12] MEDS: ACETAMINOPHEN 325 MG TABLET PO PRN (12:48)
--- NOTE | 2017-11-12 16:57 | Discharge Summary ---
Discharge Information Date of admission: 11/06/17 00:46 Anticipated date of discharge: 11/12/17 Attending Physician: Bulmaro Montes MD Primary care physician: Tori Ricci MD Consults: Consulting Provider: Chely Pedersen Reason For Exam: exp aphasia Consulting Provider: Andrez Rowe Reason For Exam: ventricular arrhythmi Expressive aphasia/acute ischemic stroke Paroxysmal atrial fibrillation with RVR Hypomagnesemia Hyperthyroidism due to excess levothyroxine replacement Possible ventricular arrhythmias Hypertension Metabolic encephalopathy Hyperlipidemia Hypokalemia, not POA GERD Cardiomyopathy Thrombocytosis Syncope-11/08/17 Dehydration with acute kidney injury-11/08/17 Headache/trapezius spasm Cognitive deficit - Procedures Procedures: Date of Exam: 11/06/17 Type of Exam(s): US echo doppler complete This is a two-dimensional this is a 2-D echo with color flow and Doppler. It was obtained in a patient with aphasia and torsades. Left atrial dimension is normal. Left ventricular end-diastolic dimension is normal. Left ventricular wall thickness is increased. Global hypokinesia is present with ejection fraction of about 30-35%. Right atrium is normal. Right ventricle is normal. Aortic root dimension is normal. Mitral valve is morphologically normal with mild mitral regurgitation. Aortic valve is a trileaflet structure with no stenosis or insufficiency. Tricuspid valve shows mild tricuspid regurgitation with moderate pulmonary hypertension with estimated pulmonary artery systolic pressure of 50. Pulmonary valve shows trace of pulmonary insufficiency. There is no pericardial effusion. Device wires are seen in the right heart. Inferior vena cava appears to be dilated and poorly responsive to respirations. IMPRESSION 1. Global hypokinesia with ejection fraction of about 30-35%. 2. Concentric left ventricular hypertrophy. 3. Device wires are seen in right heart. 4. Dilated inferior vena cava suggestive of elevated central venous pressure. 5. Mild mitral regurgitation. 6. Mild tricuspid regurgitation with moderate pulmonary hypertension with estimated pulmonary artery systolic pressure of 50. 6. Trace of pulmonary insufficiency. Date of Exam: 11/06/17 Indication: expressive aphasia PROCEDURE: US carotid doppler BI: RIGHT: PSV ICA 73 EDV ICA 14 PSV CCA 97.5 EDV CCA 19 SVR 0.7 PSV ECA 84 ICA Diameter reduction <20% (0.8-1.0)% LEFT: PSV ICA 65 EDV ICA 19 PSV CCA 63 EDV CCA 13 SVR 1.0 PSV ECA 106 ICA Diameter reduction <20% (0.8-1.0)% The right vertebral artery is patent with cephalic flow. The left vertebral artery is patent with cephalic flow. No significant atherosclerotic plaque. IMPRESSION: No hemodynamically significant carotid stenosis. Date of Exam: 11/07/17 Type of Exam(s): CA heart cath LT The patient is a 62-year lady who was admitted with multiple runs of the ventricular tachycardia. Despite low magnesium and replacement the patient continued to have some ventricular tachycardia and was referred for further evaluation by cardiac catheterization and possible intervention. PROCEDURE 1. Left heart catheterization. 2. Coronary angiography. 3. Left ventriculography. TECHNIQUE She was prepped and draped in the usual sterile techniques. 1% lidocaine was used for local anesthesia. Conscious sedation was performed using Versed and fentanyl. Using modified Seldinger technique, arterial access was obtained into the right radial artery with placement of a 6-Maori arterial sheath. LEFT VENTRICULOGRAPHY Left ventriculography in single-plane VAUGHAN shallow projection showed global hypokinesia with ejection fraction of about 30% with no mitral regurgitation or gradient across the aortic valve. LVEDP was about 29. CORONARY ANGIOGRAPHY Left main, left anterior descending and diagonals, left circumflex and marginals and right coronary artery were all free of significant lesions. The patient tolerated the procedure well with no complications. IMPRESSION 1. Nonischemic cardiomyopathy. 2. LV dysfunction with ejection fraction of about 30%. 3. No significant coronary obstructive disease. PLAN Medical management. - Laboratory Labs: Dismissal Labs 11/11/17 05:25 WBC 7.7 RBC 5.23 H Hgb 15.5 Hct 46.1 H Plt Count 432 H Dismissal labs 11/12/17 04:28 Sodium 141 Potassium 4.6 Chloride 105 Carbon Dioxide 27 BUN 26.0 H Creatinine 0.9 Glucose 88 Calcium 9.3 Admission Labs 11/05/17 11/05/17 22:08 22:08 WBC 8.6 RBC 4.26 Hgb 12.8 Hct 39.1 Plt Count 366 Sodium 146 Potassium 3.6 Chloride 111 H Carbon Dioxide 24 BUN 19.0 H Creatinine 0.8 Glucose 123 H Magnesium 1.0 L AST 21 ALT 30 Thyroid studies 11/05/17 11/06/17 22:08 11:01 TSH 0.03 L Free T4 2.34 H Lipids 11/05/17 22:08 Triglycerides 113 Cholesterol 173 LDL Cholesterol, Calc 56.4 L VLDL Cholesterol 22.6 HDL Cholesterol 94 H Cholesterol/HDL Ratio 1.8 A1C 11/05/17 22:08 Hemoglobin A1c 5.4 - Radiology Radiology: Date of Exam: 11/05/17 Indication: fall with head injury, now poor communication PROCEDURE: CT head/brain wo con: FINDINGS: The ventricles are dilated, but unchanged. There is no evidence of acute intracranial hemorrhage, midline displacement, or mass effect. There are numerous areas of low attenuation in the white matter which most likely represent changes of chronic microvascular ischemia. The CT attenuation of the brain parenchyma is otherwise normal within the cerebellum, brain stem, and cerebral hemispheres. The tympanic cavities and mastoid air cells are free of appreciable disease. There are no definite fractures of the skull base, calvarium, or visualized portion of the midface. IMPRESSION: No CT evidence of acute traumatic intracranial injury. Stable head CT. History of Present Illness HPI: This is a 62 y/o female who lives in an independent setting. She has a baseline cognitive deficit but is highly functioning. The patient was found by family member yesterday. Apparently fell for unknown reason, The patient was having problems with expressing herself and it would seem to have worsened since yesterday. Further the family would report that the patient's short term memory is poor. Again all of this is different for the patient. In the ED a CT head demonstrates old findings. No acute process. Labs are reassuring The patient has no focal motor deficits. Clearly has expressive aphasia. The patient will be admitted for further evaluation. This is very similar to an event in 2014 where she was thought to have had a TIA. Note that she is currently on a statin and aspirin therapy. Note further that she denies any problem with strength or sensory. Gait is somewhat a problem but there is chronicity to that. She is further describing a chronic cough. Objective Vital signs: Temperature 97.5 F 11/12/17 12:25 Pulse Rate 83 11/12/17 12:25 Respiratory Rate 14 11/12/17 12:25 Blood Pressure 102/52 11/12/17 12:25 Pulse Oximetry 98 11/12/17 12:25 Height/Weight/BMI: Height 1.45 m Weight 58.8 kg Body Mass Index 29.3 - Constitutional Present: no acute distress, well nourished, well developed - Routine HEENT Exam Head: Present: normocephalic, atraumatic - Routine Respiratory Exam Present: CTA bilaterally. Absent: wheezes - Routine Cardiovascular Exam Present: no murmur, irregular rhythm - Routine Abdominal Exam Present: soft, non distended, non tender - Routine Extremities Exam Present: no edema, normal capillary refill - Routine Skin Exam Present: dry, warm - Routine Neurological Exam Present: alert, moving all extremities, normal speech - Routine Lymphatic Exam Lymphatic: Absent: adenopathy - Routine Psychiatric Exam Present: normal affect, cooperative Hospital Course This is a general summary of the patient's hospital course. For more details refer to the complete medical record. Hospital course: 11/06/17 Patient admitted to ICU with combined acute stroke, arrhythmias, hyperthyroidism , and hypomagnesemia. Will require CT imaging of the head with contrast/CTA when arrhythmias stabilize and permit. Continue aspirin at present. Speech therapy evaluation in conjunction with PT/ OT. Discontinue levothyroxine, may require endocrine evaluation. Will need initiation of beta ritu. Avoid hypotension or excessive lowering of blood pressure due to acute stroke. Echocardiogram pending, carotid Dopplers obtained-negative for occlusive disease. Cardiology consultation for assistance with arrhythmias. Continue magnesium replacement, repeat electrolytes pending at this time of this dictation. Patient is critically ill-time in 1050, Timeout 1146. Discussed with patient's daughter/DPOA. Discussed with nursing, discussed with cardiology. 11/07/17 Expressive aphasia has resolved, no other neurological deficits present. Imaging to date has not revealed acute stroke and unable to obtain MRI. Clinical course consistent with stroke. Converted from atrial fibrillation back to sinus rhythm (with occasional paced rhythm) on amiodarone. Cardiac catheterization today without evidence of significant coronary disease- formal report pending. Echocardiogram with ejection fraction 30-35%, global hypokinesis, and LVH. No significant valvular disease but PAP 50. Cardiology has initiated Entresto, carvedilol, and plans LifeVest with respect to cardiomyopathy. Lisinopril and atenolol discontinued in light of above changes. Discussed longer-term anticoagulation with cardiology-given paroxysmal atrial fibrillation and evidence of cardioembolic event believe anticoagulation should be considered. Potassium replaced IV this morning; magnesium relatively stable. Levothyroxine discontinued for now; free T4 excessively elevated, TSH depressed following dose increase in September from 75 to 100 g after outpatient labs revealed TSH 5.12 and free T4 1.3 Transfer to medical unit. 11/08/17 Patient remains in sinus rhythm. She is hemodynamically stable. Continue Entresto, carvedilol and LifeVest per cardiology. Magnesium down to 1.3, and IV replacement has been ordered. Potassium has been corrected to 3.8. Levothyroxine has been discontinued. White count is stable, hemoglobin 15.1. Platelets have increased to 428. Will reassess in the morning along with BMP and magnesium level. Syncope until earlier this evening, repeat CT head unremarkable. Creatinine, hemoglobin, and fluid balance in conjunction with weight loss suggest dehydration. Mildly orthostatic; replace volume overnight. No arrhythmias were telemetry at time of syncopal event and patient was up to the bathroom one episode occurred. EKG pending, troponin slightly increased-recheck in a.m. No significant coronary disease by cardiac catheterization yesterday. 11/09/17 Patient converted to atrial fibrillation this morning-patient is hyperthyroid currently due to excess hormone replacement. Atenolol converted to carvedilol in the past 48 hours due to identification of cardiomyopathy, may have an adequate beta blockade with low-dose carvedilol. Discussed with cardiology. IV amiodarone resumed for A. fib, rate improved. Episodic hypotension, may correspond to initiation of Entresto, dose held this am. Continue volume replacement. Magnesium improved after IV replacement yesterday, oral replacement initiated yesterday evening. Levothyroxine on hold, recheck TSH/free T4 early in the week to help assess when to resume lower dose levothyroxine Hemoglobin remains elevated from baseline consistent with hemoconcentration, creatinine improving with hydration. Low-dose Flexeril and heating pad initiated for neck spasm in conjunction with Tylenol/ibuprofen for headache. Continue supportive care. Will ask OT to complete ABIOLA evaluation daughter has expressed concerns about patient's ability to manage medications at home. 11/10/17 Remains in atrial fibrillation-telemetry strips reviewed, rate slowly improving. Converted to metoprolol XL 25 mg/d yesterday evening due to hyperthyroidism/ cardiomyopathy. Levothyroxine remains on hold-last dose 11/07 at which time she received 25 g. Resume lower dose replace in approximately 1 week. Ongoing IV/by mouth magnesium replacement-may be problematic with diuretic use. Able to take Entresto last night and this am without drop in BP of concern. LifeVest pending. Speech therapy completed cognitive eval today revealing significant deficits in patient's ability to problem solve, recall general information, organize, and in abstract reasoning. Recent memory, time orientation and remote memory all impaired to some degree. OT completed ABIOLA with score of 7 indicating need for assistance to live in the community. Will discuss with patient's daughter. Discussed with Dr. Pedersen who felt patient still had some component of expressive aphasia and recommended ongoing speech therapy. Discontinue IV fluids. 11/11/17 Pt w/o complaints. Hopes to go home tomorrow pending discussion with daughter. Scored 7 on ABIOLA. Remains in atrial fibrillation - average rate 100. Metoprolol XL increased to 75 mg/d today per cardiology. Lasix and KCl decreased to daily. Magnesium normal today. Continues on po Mg. LifeVest approved. 11/12/17 Pt is to be DC'd home today with her Lifevest Magnesium initiated due to low Mg. She is on Eliquis, metoprolol for a-fib, ASA and atorvastatin for secondary stroke prevention. Entresto and lisinopril were held on issal due to hypotension. This will be followed up by Dr. Rowe at [facility] appt in 2 weeks. Her levothyoxine remains on hold due to elevated free T4 and depressed TSH on admission. She was instructed to resume levothyroxine at [facility] [place] and address at - visit with PCP. Daughter plans to stay with patient until she can get her into assisted living at [facility] as pt's cognitive deficits place her at risk living independently. F-u with Dr Ricci in 1 wk. Relayed info to Dr. Ricci's nurse at [place]. Physical exam documented in the progress note of the day Time spent with patient: discharge greater than 30 minutes Resuscitation Status: Full Code Discharge Plan - Discharge Disposition Discharge Date: 11/12/17 Disposition: 01 Discharged Home, Self-Care *Condition: Stable Reason For Visit (Visit label in EMR): acute encephalopathy - Discharge Medications *Discharge Medications: New Apixaban [Eliquis] 5 mg PO BID #60 tab Furosemide [Lasix 40 mg Tab] 40 mg PO DAILY #30 tab Magnesium Oxide [Magox] 800 mg PO BID #120 tab Metoprolol Succinate (XL) [Toprol Xl] 75 mg PO DAILY #45 tab Nitroglycerin [Nitrostat] 0.4 mg SL Q5M PRN #25 tab PRN Reason: Angina Potassium Chloride [K-DUR 10 mEq Tablet] 10 meq PO WB #30 tab Aspirin [Adult Aspirin] 81 mg PO DAILY #30 tablet.dr Mercedes Cholecalciferol (Vitamin D3) [Vitamin D-400] 400 unit PO DAILY #0 tab Multivitamin [One Daily] 1 each PO DAILY Levothyroxine Tab [Synthroid] 25 mcg PO ACB Calcium Carbonate 600 mg PO DAILY Hydrocodone/APAP 5/325 [[place] 5/325] 1 tab PO Q6H PRN #12 tab PRN Reason: Pain Atorvastatin Calcium 20 mg PO HS #30 Omeprazole 20 mg PO ACB #0 tab Discontinued Aspirin [Aspirin EC] 81 mg PO DAILY Lisinopril [Zestril] 10 mg PO DAILY Atenolol [Tenormin] 50 mg PO DAILY Flecainide [Tambocor] 100 mg PO BID - Discharge Packet/Instructions *Diet: Resume heart healthy diet. *Activity: Limit activity for 2 days. No lifting more than 10 pounds, no pushing or pulling for [address], operate machinery or drink alcohol for 2 days. *Pain Management/Treatment: Over the counter pain medication if needed. *Wound Care: Keep site clean and dry. No tub baths or swimming for 1 week. You may shower. *Expected Signs/Symptoms: Bruising and tenderness at the site. *Notify Physician if: Site is bleeding, abnormal drainage, increased pain or fever of 101.5 or more. *During Business Hours Contact: Call Dr. Rowe's office at [phone]. *After Business Hours Contact: Please call [phone] and have the data coder operator page the physician. *Pending Lab/Results: No Pending Lab - Referrals/Follow Up *Referrals/Follow Up: Andrez Rowe MD [Physician] - 11/28/17 9:50 am Tori Ricci MD [Primary Care Provider] - (appt jessica 11/19/17) - Patient Handouts Patient Handouts: [facility] Congestive Heart Failure, Transient Ischemic Attack (DC) , Encephalopathy (DC) - Dismissal Complete Discharge Instructions are:: Complete Physician Narrative - Narrative Attestation Narrative: Date: 11/12/17 Time: 1651
--- NOTE | 2017-11-15 18:25 | Progress Note ---
- Date 11/12/17 Objective Vital signs: Temperature 97.5 F 11/12/17 12:25 Pulse Rate 83 11/12/17 12:25 Respiratory Rate 14 11/12/17 12:25 Blood Pressure 102/52 11/12/17 12:25 Pulse Oximetry 98 11/12/17 12:25 Height/Weight/BMI: Height 4 ft 9 in Weight 58.8 kg Body Mass Index 29.3 - Constitutional Present: well nourished, well developed - Routine HEENT Exam Head: Present: normocephalic, atraumatic Eye: Present: EOMI, PERRL ENT: Present: mucous membranes moist, dentition normal - Routine Respiratory Exam Present: CTA bilaterally. Absent: wheezes - Routine Cardiovascular Exam Present: S1, S2, murmur, irregular rhythm - Routine Abdominal Exam Present: soft, normoactive bowel sounds, non distended. Absent: tenderness - Routine Extremities Exam Present: normal capillary refill - Routine Skin Exam Present: dry, warm - Routine Neurological Exam Present: alert, oriented X3, CN II-XII intact - Routine Lymphatic Exam Lymphatic: Absent: adenopathy - Routine Psychiatric Exam Present: normal affect Results - Labs CBC & Chem 7: 11/11/17 05:25 11/12/17 04:28 Assessment and Plan Assessment and Plan: Impression: Expressive aphasia/acute ischemic stroke Paroxysmal atrial fibrillation with RVR Hypomagnesemia Hyperthyroidism due to excess levothyroxine replacement Possible ventricular arrhythmias Hypertension Metabolic encephalopathy Hyperlipidemia Hypokalemia, not POA GERD Cardiomyopathy Thrombocytosis Syncope-11/08/17 Dehydration with acute kidney injury-11/08/17 Headache/trapezius spasm Cognitive deficit Plan: espressive aphasia has resolved. Pt is to be DC'd home today with her Lifevest Magnesium initiated due to low Mg. Even samples of eloquence Eliquis, metoprolol for a-fib, ASA and atorvastatin for secondary stroke prevention. Entresto and lisinopril were held on dismissal due to hypotension. This will be followed up by Dr. Rowe at [facility] appt in 2 weeks. Her levothyoxine remains on hold due to elevated free T4 and depressed TSH on admission. She was instructed to resume levothyroxine at 25mcg and address at [facility] visit with PCP. Daughter plans to stay with patient until she can get her into assisted living at [facility] as pt's cognitive deficits place her at risk living independently. F-u with Dr Ricci in 1 wk. Relayed info to Dr. Ricci's nurse at [facility]. - Physician Narrative Physician: other Narrative: Date: 11/15/17 Time: 1823 Hospital Course Summary Disclaimer: The visit summary below is not to be considered part of the above Progress Note. Hospital Course: 11/06/17 Patient admitted to ICU with combined acute stroke, arrhythmias, hyperthyroidism , and hypomagnesemia. Will require CT imaging of the head with contrast/CTA when arrhythmias stabilize and permit. Continue aspirin at present. Speech therapy evaluation in conjunction with PT/ OT. Discontinue levothyroxine, may require endocrine evaluation. Will need initiation of beta ritu. Avoid hypotension or excessive lowering of blood pressure due to acute stroke. Echocardiogram pending, carotid Dopplers obtained-negative for occlusive disease. Cardiology consultation for assistance with arrhythmias. Continue magnesium replacement, repeat electrolytes pending at this time of this dictation. Patient is critically ill-time in 1050, Timeout 1146. Discussed with patient's daughter/DPOA. Discussed with nursing, discussed with cardiology. 11/07/17 Expressive aphasia has resolved, no other neurological deficits present. Imaging to date has not revealed acute stroke and unable to obtain MRI. Clinical course consistent with stroke. Converted from atrial fibrillation back to sinus rhythm (with occasional paced rhythm) on amiodarone. Cardiac catheterization today without evidence of significant coronary disease- formal report pending. Echocardiogram with ejection fraction 30-35%, global hypokinesis, and LVH. No significant valvular disease but PAP 50. Cardiology has initiated Entresto, carvedilol, and plans LifeVest with respect to cardiomyopathy. Lisinopril and atenolol discontinued in light of above changes. Discussed longer-term anticoagulation with cardiology-given paroxysmal atrial fibrillation and evidence of cardioembolic event believe anticoagulation should be considered. Potassium replaced IV this morning; magnesium relatively stable. Levothyroxine discontinued for now; free T4 excessively elevated, TSH depressed following dose increase in September from 75 to 100 g after outpatient labs revealed TSH 5.12 and free T4 1.3 Transfer to medical unit. 11/08/17 Patient remains in sinus rhythm. She is hemodynamically stable. Continue Entresto, carvedilol and LifeVest per cardiology. Magnesium down to 1.3, and IV replacement has been ordered. Potassium has been corrected to 3.8. Levothyroxine has been discontinued. White count is stable, hemoglobin 15.1. Platelets have increased to 428. Will reassess in the morning along with BMP and magnesium level. Syncope until earlier this evening, repeat CT head unremarkable. Creatinine, hemoglobin, and fluid balance in conjunction with weight loss suggest dehydration. Mildly orthostatic; replace volume overnight. No arrhythmias were telemetry at time of syncopal event and patient was up to the bathroom one episode occurred. EKG pending, troponin slightly increased-recheck in a.m. No significant coronary disease by cardiac catheterization yesterday. 11/09/17 Patient converted to atrial fibrillation this morning-patient is hyperthyroid currently due to excess hormone replacement. Atenolol converted to carvedilol in the past 48 hours due to identification of cardiomyopathy, may have an adequate beta blockade with low-dose carvedilol. Discussed with cardiology. IV amiodarone resumed for A. fib, rate improved. Episodic hypotension, may correspond to initiation of Entresto, dose held this am. Continue volume replacement. Magnesium improved after IV replacement yesterday, oral replacement initiated yesterday evening. Levothyroxine on hold, recheck TSH/free T4 early in the week to help assess when to resume lower dose levothyroxine Hemoglobin remains elevated from baseline consistent with hemoconcentration, creatinine improving with hydration. Low-dose Flexeril and heating pad initiated for neck spasm in conjunction with Tylenol/ibuprofen for headache. Continue supportive care. Will ask OT to complete ABIOLA evaluation daughter has expressed concerns about patient's ability to manage medications at home. 11/10/17 Remains in atrial fibrillation-telemetry strips reviewed, rate slowly improving. Converted to metoprolol XL 25 mg/d yesterday evening due to hyperthyroidism/ cardiomyopathy. Levothyroxine remains on hold-last dose 11/07 at which time she received 25 g. Resume lower dose replace in approximately 1 week. Ongoing IV/by mouth magnesium replacement-may be problematic with diuretic use. Able to take Entresto last night and this am without drop in BP of concern. LifeVest pending. Speech therapy completed cognitive eval today revealing significant deficits in patient's ability to problem solve, recall general information, organize, and in abstract reasoning. Recent memory, time orientation and remote memory all impaired to some degree. OT completed ABIOLA with score of 7 indicating need for assistance to live in the community. Will discuss with patient's daughter. Discussed with Dr. Pedersen who felt patient still had some component of expressive aphasia and recommended ongoing speech therapy. Discontinue IV fluids. 11/11/17 Pt w/o complaints. Hopes to go home tomorrow pending discussion with daughter. Scored 7 on ABIOLA. Remains in atrial fibrillation - average rate 100. Metoprolol XL increased to 75 mg/d today per cardiology. Lasix and KCl decreased to daily. Magnesium normal today. Continues on po Mg. LifeVest approved. 11/12/17 Pt is to be DC'd home today with her Lifevest Magnesium initiated due to low Mg. She is on Eliquis, metoprolol for a-fib, ASA and atorvastatin for secondary stroke prevention. Entresto and lisinopril were held on dismissal due to hypotension. This will be followed up by Dr. Rowe at f-u appt in 2 weeks. Her levothyoxine remains on hold due to elevated free T4 and depressed TSH on admission. She was instructed to resume levothyroxine at 25mcg and address at f- u visit with PCP. Daughter plans to stay with patient until she can get her into assisted living at [facility] as pt's cognitive deficits place her at risk living independently. F-u with Dr Ricci in 1 wk. Relayed info to Dr. Ricci's nurse at [place]. Physical exam documented in the progress note of the day
--- NOTE | 2017-11-18 14:34 | Work/School Release ---
Work/School Release - Date Date: 11/18/17 - Work Release Excused for:: Mrs. Betancourt is debilitated and unable to live independently any longer. Family will be making living modifications for her accordingly.
== END 2017-11-12 15:55 | disposition home or self-care (01) | DRG 64 ==
LOC: ED 21:05 → CCU 11-06 00:46 → SUATTDRO 11-06 00:46 → CCU 11-06 01:03 → SRG 11-07 19:40
PROVIDERS: ADMIT Emergency Medicine; ATTEND Family Medicine